=== PATIENT | female | born 1955 | race Caucasian/White ===

== ENCOUNTER → 2020-09-30 07:26 | Outpatient (CLI) | payer MEDICARE, OTHER, SELFPAY ==
--- NOTE | 2020-09-30 07:27 | CA_ITS ---
APPROVED REPORT EXAM: Comprehensive 2D, Doppler, and color-flow Echocardiogram Scoop Driver: Ana Javed RT(R) Ht: 5 ft 1 in Wt: 146lbs BSA: 1.65 BP: 165/80 mmHg Indications: CP, SOB, HTN 2D Dimensions LVOT 1.88 cm (M/F) 1.5-2.5 LVEF (Barkley's) 67.40 % F: 54 - 74 LV Volume 77.70 mL F: 46 - 106 LV Volume Index 47.09 mL/m2 F: 29 - 61 LA Volume 29.50 mL LA Volume Index 17.87 mL/m2 (M/F) 16-34 M-Mode Dimensions RVDd 2.05 cm (0.9-2.6) LA Diam 3.54 cm (1.9-4.0) LVDd 4.36 cm (3.5-5.7) Ao Diam 2.50 cm (2.0-3.7) LVDs 3.19 cm (3.5-5.7) IVSd 0.91 cm (0.6-1.1) PWd 0.87 cm (0.6-1.1) EF (Teich) 52.70% FS 26.80% EDV (Teich) 85.80 mL ESV (Teich) 40.60 mL LV Diastology E Decel Time 200.00 (160-240 msec) E/A Ratio 0.9 MED E' 7.80 (< 7 cm/sec) E'/MED E' Ratio 11.90 (>14) LAT E' 8.40 (<10 cm/sec) E/LAT E' Ratio 11.05 (>14) Mitral Valve MV E Max Bishop. 93.00 (40-130 cm/s) MV A Velocity 107.00 (40-130 cm/s) E/A Ratio 0.86 MV Decel. Time 200.00 (160-240 ms) MV PHT 59.00 ms Tricuspid Valve TR P. Velocity 210.00 cm/s RAP Estimate 10.00 mmHg RVSP 27.70 mmHg Left Ventricle Left atrium is mildly enlarged, left ventricle is normal size, left ventricle wall thickness is upper limit of the normal, there is preserved left ventricular systolic function, visually estimated ejection fraction 55% with no regional wall motion abnormality, diastolic parameters are inconclusive. Right Ventricle Right atrium and right ventricle are normal size and contractility. Aortic Valve Aortic valve is minimally thickened and fibrosed, there is no aortic stenosis or aortic insufficiency. Mitral Valve Mitral valve grossly normal, there is mild mitral regurgitation. Tricuspid Valve Tricuspid valve grossly normal, there is mild tricuspid regurgitation, calculated right ventricular systolic pressure within normal range. Pulmonic Valve Pulmonic valve is poorly visualized. Great Vessels Aortic root is normal size. Inferior vena cava is normal size with normal inspiratory collapse. Pericardium No significant pericardial effusion noted. Conclusion 1. Mildly enlarged left atrium, normal left ventricular size, visually estimated ejection fraction 55% with no regional wall motion abnormality, diastolic parameters are inconclusive. 2. Mild mitral and tricuspid regurgitation, calculated right ventricular systolic pressure within normal range. 3. No significant pericardial effusion noted, inferior vena cava is normal size with normal inspiratory collapse. Electronically signed by : Bryon Guerra MD 09/30/2020 21:07:06
== END ==
PROVIDERS: PCP Physician Assistant Medical; Visit Provider Urology
DX: I10 Essential (primary) hypertension; R07.9 Chest pain, unspecified; E78.49 Other hyperlipidemia
CPT/HCPCS: 93306

== ENCOUNTER → 2021-09-03 08:55 | Outpatient (CLI) | payer MEDICARE, OTHER, SELFPAY ==
[2021-09-03 10:11] LABS: Alanine Aminotransferase 23 U/L (12-78); Albumin Level 4.2 g/dl (3.5-5.0); Alkaline Phosphatase 55 U/L (38-126); Aspartate Amino Transferase 33 U/L (14-36); Bilirubin,Indirect 0.3 mg/dL (0.0-0.9); Bilirubin,Total 0.3 mg/dl (0.2-1.3); Bilirubin,Unconjugated 0.6 mg/dL (0.0-1.1); Chol/HDL Ratio 3.7 (1-3.5); Cholesterol 145 mg/dl (140-200); HDL Cholesterol 39 mg/dl (40-60); Triglycerides 132 mg/dl (30-150); VLDL Cholesterol 26 mg/dL (0-40)
[2021-09-03 10:22] LABS: Direct LDL Cholesterol 71.24 mg/dL (100-129)
== END ==
PROVIDERS: PCP Physician Assistant Medical; Visit Provider Nurse Practitioner
DX: I10 Essential (primary) hypertension; E78.49 Other hyperlipidemia
CPT/HCPCS: 36415; 80061; 80076

== ENCOUNTER 2023-05-12 09:38 | Outpatient (CLI) | payer MEDICARE, OTHER, SELFPAY ==
[2023-05-12 10:26] LABS: Basophils # 0.1 K/mm3 (0-0.2); Basophils % 1.1 % (0.1-2.0); Eosinophils # 0.2 K/mm3 (0.0-0.4); Eosinophils % 3.4 % (0.1-12.0); Hematocrit 38.8 % (37.0-47.0); Hemoglobin 12.9 g/dL (12.2-16.2); Lymphocytes # 2.7 K/mm3 (0.7-4.5); Lymphocytes % 42.1 % (10-50); Mean Corpuscular HGB Conc 33.2 g/dL (31.8-35.4); Mean Corpuscular Hemoglobin 30.3 pg (27.0-31.2); Mean Corpuscular Volume 91.2 fl (81-99); Mean Platelet Volume 9.2 fl (7.4-10.4); Monocytes # 0.4 K/mm3 (0.1-1.0); Monocytes % 5.9 % (1.7-9.3); Neutrophils # 3.1 K/mm3 (1.8-7.8); Neutrophils % 47.5 % (37.0-80.0); Platelet Count 301 K/mm3 (142-424); Red Blood Count 4.25 M/mm3 (4.20-5.40); Red Cell Distribution Width 14.6 % (11.5-17.5); White Blood Count 6.5 K/mm3 (4.8-10.8)
[2023-05-12 13:05] LABS: Free T4 (Free Thyroxine) 1.17 ng/dl (0.78-2.19)
[2023-05-12 13:12] LABS: Chloride 101 mmol/L (98-107)
[2023-05-12 13:13] LABS: Potassium 4.3 mmoL/L (3.5-5.1); Sodium 137 mmol/L (136-145)
[2023-05-12 13:15] LABS: Alanine Aminotransferase 28 U/L (12-78); Alkaline Phosphatase 67 U/L (38-126); Anion Gap 10.3 mEq/L (5-15); Aspartate Amino Transferase 38 U/L (14-36); Bilirubin,Direct 0.2 mg/dl (0.0-0.4); Bilirubin,Indirect 0.3 mg/dL (0.0-0.9); Bilirubin,Total 0.5 mg/dl (0.2-1.3); Bilirubin,Unconjugated 0.3 mg/dL (0.0-1.1); Blood Urea Nitrogen 22 mg/dl (7-17); Carbon Dioxide 30 mmol/L (22.0-30.0); Cholesterol 163 mg/dl (140-200); Estimated Glomerular Filt Rate 49 ml/min (>60); GFR (African American) 60 ML/MIN (>60); Total Protein,Serum 6.9 g/dl (6.3-8.2); Triglycerides 149 mg/dl (30-150); VLDL Cholesterol 30 mg/dL (0-40)
[2023-05-12 13:16] LABS: Calcium 9.7 mg/dl (8.4-10.2); Chol/HDL Ratio 5.6 (1-3.5); Glucose 91 mg/dl (74-100); HDL Cholesterol 29 mg/dl (40-60)
[2023-05-12 13:27] LABS: Direct LDL Cholesterol 78.35 mg/dL (100-129)
== END 2023-05-12 23:59 ==
LOC: LAB 09:39
PROVIDERS: Visit Provider Nurse Practitioner Family
DX: E11.9 Type 2 diabetes mellitus without complications (principal); R06.00 Dyspnea, unspecified; K21.9 Gastro-esophageal reflux disease without esophagitis; R94.31 Abnormal electrocardiogram [ECG] [EKG]; I10 Essential (primary) hypertension; I11.9 Hypertensive heart disease without heart failure; Z79.899 Other long term (current) drug therapy; E78.5 Hyperlipidemia, unspecified
CPT/HCPCS: 36415; 80048; 80061; 80076; 84439; 84443; 85025

== ENCOUNTER 2024-05-10 08:51 | Outpatient (CLI) | payer MEDICARE, SELFPAY ==
[2024-05-10 09:19] LABS: Basophils % 0.6 % (0.1-2.0); Eosinophils # 0.3 K/mm3 (0.0-0.4); Eosinophils % 4.3 % (0.1-12.0); Hematocrit 40.1 % (37.0-47.0); Hemoglobin 13.3 g/dL (12.2-16.2); Lymphocytes # 2.3 K/mm3 (0.7-4.5); Lymphocytes % 34.7 % (10-50); Mean Corpuscular HGB Conc 33.2 g/dL (31.8-35.4); Mean Corpuscular Hemoglobin 29.1 pg (27.0-31.2); Mean Corpuscular Volume 87.7 fl (81-99); Mean Platelet Volume 11.4 fl (7.4-10.4); Monocytes # 0.5 K/mm3 (0.1-1.0); Monocytes % 7.7 % (1.7-9.3); Neutrophils # 3.5 K/mm3 (1.8-7.8); Neutrophils % 52.6 % (37.0-80.0); Platelet Count 232 K/mm3 (142-424); Red Blood Count 4.57 M/mm3 (4.20-5.40); White Blood Count 6.7 K/mm3 (4.8-10.8)
[2024-05-10 09:46] LABS: Albumin Level 4.7 g/dl (3.5-5.0); Chloride 104 mmol/L (98-107)
[2024-05-10 09:47] LABS: Potassium 4.5 mmoL/L (3.5-5.1); Sodium 139 mmol/L (136-145)
[2024-05-10 09:49] LABS: Alanine Aminotransferase 40 U/L (12-78); Alkaline Phosphatase 66 U/L (38-126); Anion Gap 14.5 mEq/L (5-15); Aspartate Amino Transferase 42 U/L (14-36); Bilirubin,Direct 0.1 mg/dl (0.0-0.4); Bilirubin,Indirect 0.4 mg/dL (0.0-0.9); Bilirubin,Total 0.5 mg/dl (0.2-1.3); Bilirubin,Unconjugated 0.4 mg/dL (0.0-1.1); Blood Urea Nitrogen 27 mg/dl (7-17); Calcium 10.3 mg/dl (8.4-10.2); Carbon Dioxide 25 mmol/L (22.0-30.0); Cholesterol 157 mg/dl (140-200); Estimated Glomerular Filt Rate 49 ml/min (>60); GFR (African American) 60 ML/MIN (>60); Glucose 95 mg/dl (74-100); Total Protein,Serum 7.3 g/dl (6.3-8.2); Triglycerides 182 mg/dl (30-150); VLDL Cholesterol 36 mg/dL (0-40)
[2024-05-10 09:50] LABS: HDL Cholesterol 39 mg/dl (40-60)
[2024-05-10 10:00] LABS: Direct LDL Cholesterol 68.55 mg/dL (100-129)
[2024-05-10 10:20] LABS: Thyroid Stimulating Hormone 0.34 uIU/mL (0.465-4.68)
== END 2024-05-10 23:59 | disposition home or self-care (01) ==
LOC: LAB 08:52
PROVIDERS: PCP Physician Assistant Medical; Visit Provider Nurse Practitioner
DX: E78.49 Other hyperlipidemia (principal); R53.83 Other fatigue; I10 Essential (primary) hypertension
CPT/HCPCS: 36415; 80048; 80061; 80076; 84439; 84443; 85025

== ENCOUNTER 2024-05-23 13:03 | Outpatient (CLI) | payer MEDICARE, OTHER, SELFPAY ==
--- NOTE | 2024-05-23 | CA_ITS ---
APPROVED REPORT EXAM: Comprehensive 2D, Doppler, and color-flow Echocardiogram Drill Punch Operator: Ana Javed RT(R) Ht: 5 ft 1 in Wt: 148lbs BSA: 1.66 BP: 157/75 mmHg Indications: CP, HTN, hyperlpidemia 2D Dimensions Left Atrium 2.69 cm F: 2.7 - 3.8 LVEF (Barkley's) 50.80 % F: 54 - 74 LVOT 1.98 cm (M/F) 1.5-2.5 LV Volume 74.00 mL F: 46 - 106 LV Volume Index 44.6 mL/m2 F: 29 - 61 LA Volume 20.30 mL LA Volume Index 12.23 mL/m2 (M/F) 16-34 EF AP4 61.90 % EF AP2 38.9 % EF BP 50.8 % GL Strain -22.0 % M-Mode Dimensions RVDd 2.11 cm (0.9-2.6) LVDd 3.97 cm (3.5-5.7) Ao Diam 2.37 cm (2.0-3.7) LVDs 2.90 cm (3.5-5.7) IVSd 0.75 cm (0.6-1.1) PWd 0.79 cm (0.6-1.1) EF (Teich) 53.20% FS 27.00% EDV (Teich) 68.80 mL ESV (Teich) 32.20 mL LV Diastology E Decel Time 194 (160-240 msec) E/A Ratio 0.7 MED E' 5.6 (>= 7 cm/sec) E'/MED E' Ratio 12.02 (<= 14) LAT E' 6.2 (>= 10 cm/sec) E/LAT E' Ratio 10.85 (<= 14) Mitral Valve MV E Max Bishop. 67.0 (40-130 cm/s) MV A Velocity 93.0 (40-130 cm/s) E/A Ratio 0.73 MV Decel. Time 194 (160-240 ms) Tricuspid Valve TR P. Velocity 216.00 cm/s RAP Estimate 10.00 mmHg RVSP 28.60 mmHg Left Ventricle The left ventricle is normal size. The left ventricular systolic function is normal. The left ventricular ejection fraction is within the normal range. There is increased LV wall thickness. There is normal LV segmental wall motion. Transmitral Doppler flow pattern suggests impaired LV relaxation. LVEF is 55%. Right Ventricle The right ventricle is normal size. The right ventricular systolic function is normal. Atria Left atrium is mildly dilated. Right atrium is mildly dilated. There is no Doppler evidence of interatrial shunt. Aortic Valve The aortic valve is mildly thickened. There is no aortic valvular stenosis. Trace aortic regurgitation. Mitral Valve The mitral valve is normal in structure. No evidence of mitral valve stenosis. Trace mitral regurgitation. Tricuspid Valve Tricuspid valve is grossly normal in structure and function. Trace tricuspid regurgitation. There is insufficent TR jet to estimate RVSP. Pulmonic Valve The pulmonary valve is normal in structure. Trace pulmonic regurgitation. Great Vessels The aortic root is normal in size. IVC is normal in size and collapses >50% with inspiration. Pericardium There is no pericardial effusion. Other Information Study Quality: Fair Conclusion Normal biventricular systolic function. Mild biatrial dilation. No significant valvular stenosis or regurgitation. Electronically signed by : Melida Jackson MD 06/03/2024 16:08:13
== END 2024-05-23 23:59 | disposition home or self-care (01) ==
LOC: RT 13:04
PROVIDERS: PCP Physician Assistant Medical; Visit Provider Nurse Practitioner
DX: I51.7 Cardiomegaly (principal); K30 Functional dyspepsia; R07.89 Other chest pain; R94.31 Abnormal electrocardiogram [ECG] [EKG]
CPT/HCPCS: 93306

== ENCOUNTER 2024-05-24 07:00 | Outpatient (CLI) | payer MEDICARE, OTHER, SELFPAY ==
--- NOTE | 2024-05-24 | CA_ITS ---
APPROVED REPORT Exam: Pharmacologic Technologist: Isabell Bruce Ht: 5 ft 1 in Wt: 148 lbs BSA: 1.66 m2 HR: 69 bpm BP: 149/64 mmHg Stress Test Details Test: Lexiscan HR Resting HR: 69 bpm Max Heart Rate (APMHR): 151.024635 bpm Max HR Achieved: 91 bpm Target HR (85% APMHR): 128.112288 bpm % of APMHR: 60.26 Recovery HR: 83 bpm BP Resting BP: 149.0/64.0 mmHg Max BP: 154.0/58.0 mmHg Recovery BP: 148.0/63.0 mmHg ECG Stress ECG Conclusion Symptoms: None Arrhythmias/Ectopy: None ST-T Changes: Unremarkable with Lexiscan Electronically signed by : Melida Jackson MD 05/24/2024 12:47:22
[2024-05-24] MEDS: SODIUM CHLORIDE 0.9% 10ML SYR (RAD ONLY) 10 ML IV ×2 (07:10→09:30)
--- NOTE | 2024-05-24 07:30 | NM_ITS ---
APPROVED REPORT Exam: Nuclear Stress Test Indication: htn, hyperlipidemia, fm hx, c.p. Patient Location: Outpatient Stress Tech: Isabell Bruce NM Tech:FARZANA Norton RT (R)(N)(M) Ht: 5 ft 1 in Wt: 148 lbs Bra Size: b HR: 69 bpm BP: 149/64 mmHg BSA: 1.66 m2 TID: 1.28 BMI: 27.9 History: htn, hyperlipidemia, fm hx, c.p Procedure: Patient received 0.4 mg of intravenous Lexiscan, resting heart rate 69 bpm, resting blood pressure 149/64 mmHg, with Lexiscan maximum heart rate achieved was 84 bpm which is % of the maximum predicted heart rate and blood pressure was 135/57 mmHg. Patient did complain of chest pain with lexiscan. Cardiac Stress and Resting SPECT Images: Cardiac Stress and Resting SPECT images were obtained using technetium 99m Myoview 10.94 mCi stress and 30.8 mCi at rest. Resting and stress imaging in supine and prone positions demonstrate no evidence of fixed or reversible perfusion defects. There is increase in transient ischemic dilatation ratio (TID 1.28), which may be suggestive of possible multivessel disease or balanced ischemia. Gated imaging demonstrates normal global and regional LV systolic function. LVEF is calculated at > 75%. Conclusion: No evidence of fixed or reversible perfusion defects. There is increase in transient ischemic dilatation ratio (TID 1.28), which may be suggestive of possible multivessel disease or balanced ischemia. Gated imaging demonstrates normal global and regional LV systolic function. LVEF is calculated at > 75%. Electronically signed by : Melida Jackson MD 05/24/2024 12:45:19
[2024-05-24] MEDS: REGADENOSON 0.4MG/5ML SYRINGE 0.4 MG IV (09:30)
[2024-05-24] MEDS: ISOTOPE MYOVIEW (PER STUDY) 1 DOSE IV (10:43)
== END 2024-05-24 23:59 | disposition home or self-care (01) ==
LOC: RAD 07:01
PROVIDERS: PCP Physician Assistant Medical; Visit Provider Nurse Practitioner
DX: I20.9 Angina pectoris, unspecified (principal); R07.89 Other chest pain; I10 Essential (primary) hypertension
CPT/HCPCS: 78452; 93017; 93018; A9502; J2785

== ENCOUNTER 2024-06-16 07:05 | Outpatient (CLI) | payer MEDICARE, OTHER, SELFPAY ==
[2024-06-16 07:12] VITALS: BMI 27.9
[2024-06-16] MEDS: METOPROLOL TARTRATE 50MG TABLET PO (07:36)
[2024-06-16] MEDS: IVABRADINE HCL 7.5MG TABLET PO (07:37)
[2024-06-16 07:38] LABS: Chloride 104 mmol/L (98-107); Potassium 3.8 mmoL/L (3.5-5.1); Sodium 137 mmol/L (136-145)
[2024-06-16 07:40] VITALS: BP 150/87; PULSE 72; RESP 16; O2SAT 99
[2024-06-16 07:41] LABS: Anion Gap 11.8 mEq/L (5-15); Blood Urea Nitrogen 29 mg/dl (7-17); Carbon Dioxide 25 mmol/L (22.0-30.0); Creatinine Clearance Estimated 51 mL/min (50-200); Estimated Glomerular Filt Rate 49 ml/min (>60); GFR (African American) 60 ML/MIN (>60)
[2024-06-16 07:42] LABS: Calcium 9.2 mg/dl (8.4-10.2); Glucose 96 mg/dl (74-100)
[2024-06-16 08:28] VITALS: BP 175/98; PULSE 66; RESP 16; O2SAT 95
[2024-06-16] MEDS: NITROGLYCERIN 0.4MG SL TABLET SL (08:28)
--- NOTE | 2024-06-16 08:30 | CT_ITS ---
APPROVED REPORT Die Machine Operator: CLINICAL INDICATION Chest Pain TECHNIQUE Image Acquisition: A 128 slice MDCT scanner ([employer]book[employer] View) was used for data acquisition. A noncontrast coronary calcium scan was performed. A CT attenuation threshold of 130 Hounsfield units (HU) was used for the detection of calcium in contiguous voxels of 1 sq mm in area to be counted as individual lesions. Bolus tracking in the ascending aorta with a threshold of 180 HU was performed. Immediately afterwards, ECG synchronized cardiac CT was then performed from the cardiac base to apex using retrospective gating with ECG tube current modulation. A total of 85 mL of Isovue 370 mg/mL contrast medium was administered at 5 mL/sec followed by a saline flush using a biphasic injection protocol. A tube voltage of 120 KVp was used. The patient received the following medications prior to the cardiac CT. 50 mg of oral metoprolol 15 mg of oral ivabradine 0.8 mg of sublingual nitroglycerin The average heart rate at the time of acquisition was 61 bpm and regular. Image Reconstruction Transaxial images were reconstructed at 0.67 mm slide thickness. Data was reviewed interactively on an advanced workstation capable of 2 and 3-dimensional displays in all conventional reconstruction formats, including multiplanar reformations, maximum intensity projections, curved multiplanar reformations, and volume rendered reconstructions. When applicable, selected routine images describing the relevant coronary anatomy and pathology were saved and sent to PACS. Complications None Technical Quality Overall image quality was suboptimal and nondiagnostic in the setting of significant motion and blurring artifact. Coronary artery opacification was fair. Total DLP (Dose-Length Product) is 1689.2 mGy-cm. The reported value represents the total of one or more individual components during the CT acquisition of this date and at this time, and as such, the same value may appear in more than one CT report depending on the interpreting/reporting physicians. COMPARISON None FINDINGS CT Coronary Calcium Scoring LMA (Left Main Artery) = 10 LAD (Left Anterior Descending) = 84 LCX (Left Coronary Circumflex) = 59 RCA (Right Coronary Artery) = 92 Total Calcium Score = 245 using the AJ-130 method. The observed calcium score of 245 is at 86th percentile for subjects of the same age, sex, and race/ethnicity. The interpretation of the calcium heart score is based on the following continuum*: 0 = no calcified plaque detected (risk of coronary artery disease is very low ??? less than 5%) 1-10 = calcium detected in extremely minimal levels (risk of coronary diseases is still low ??? less than 10%) 11-100 = mild levels of plaque detected with certainty (mild or minimal narrowing of heart arteries is likely) 101-400 = definite,at least moderate levels of plaque detected (relatively high risk of a heart attack within 3-5 years) >401-999 = extensive levels of plaque detected (high risk of heart attack, high levels of vascular disease are present, high likelihood of at least one significant coronary narrowing) *The calcium heart score quantifies the burden of coronary calcification/plaque in the coronary arteries. The calcium heart score is not able to evaluate the presence or burden of non-calcified (i.e. soft) plaque. There is no mild calcification in the ascending and descending thoracic aorta. Coronary CT Angiography The coronary arterial system is right dominant. Quantitative Stenosis Grading: Left Main (LM): The left main originates normally from the left sinus of Valsalva. The LM bifurcates into the left anterior descending artery and left circumflex artery. There is calcified plaque in the proximal LAD, with no clear evidence of significant luminal stenosis. Left Anterior Descending (LAD) and Diagonal Branches: The LAD gives off 2 diagonal branch(es). The LAD is not well-visualized in the setting of significant motion, but grossly, there is mixed calcified/noncalcified plaque in the proximal LAD with indeterminate degree of luminal stenosis. There is no evidence of LAD-myocardial bridge. Left Circumflex (LCX) and Obtuse Marginals (OM): The LCX gives off 1 Obtuse Marginal (OM) branch(es). The LCx is not well-visualized in the setting of significant motion, grossly there is mixed calcified/noncalcified plaque in the proximal LCx, with indeterminate degree of stenosis. Right Coronary Artery (RCA): The RCA originates normally from the right sinus of Valsalva. The RCA gives off a posterior descending artery (PDA) and posterolateral (PL) branches. The LCx is not well-visualized in the setting of significant motion, grossly there is mixed calcified/noncalcified plaque in the proximal and mid RCA, with indeterminate degree of stenosis. Non-Coronary Cardiac Findings: Analysis of the left ventricular (LV) structure and function was performed after 3-D reconstruction of the LV from axial images, with user-corrected automatic contouring for assessment of LV volumes and user-defined reconstruction from oblique planes for measurement of 3-D cardiac structure and function. -The left ventricle systolic function is indeterminate. Extracardiac Structures No significant extra-cardiac findings. Note, however, that this study is focused on the cardiac findings. IMPRESSION - Image quality was suboptimal and nondiagnostic in the setting of significant motion and blurring artifact. -Presence of coronary calcification with an Agatston score = 245 using the AJ-130 method. -The observed calcium score of 245 is at 86th percentile for subjects of the same age, sex, and race/ethnicity. -Multivessel atherosclerosis is present, with indeterminate evidence of significant flow-limiting atherosclerosis in the setting of technically difficult and nondiagnostic study -CAD-RADS is indeterminate. Further evaluation with alternative modalities is suggested in the setting of nondiagnostic CCTA. *Recommendations: CAD RADS 0: Reassurance. Consider non-atherosclerotic causes of chest pain. CAD RADS 1: Consider non-atherosclerotic causes of chest pain. Consider preventive therapy and risk factor modification. CAD RADS 2: Consider non-atherosclerotic causes of chest pain. Consider preventive therapy and risk factor modification, particularly for patients with nonobstructive plaque in multiple segments. CAD RADS 3: Consider further functional testing. Consider symptom-guided anti-ischemic and preventive pharmacotherapy as well as risk factor modification per published guideline statements. CAD RADS 4A: Consider further functional testing or invasive coronary angiography with revascularization per published guideline statements. Consider symptom-guided anti-ischemic and preventive pharmacotherapy as well as risk factor modification per published guideline statements. CAD RADS 4B: Invasive coronary angiography recommended with revascularization per published guideline statements. Consider symptom-guided anti-ischemic and preventive pharmacotherapy as well as risk factor modification per published guideline statements. CAD RADS 5: Consider invasive angiography and/or viability assessment with revascularization per published guideline statements. Consider symptom-guided anti-ischemic and preventive pharmacotherapy as well as risk factor modification per published guideline statements. CRITICAL RESULT None COMMUNICATION Per this written report The coronary and cardiac findings of this CCTA were reviewed, reported, and signed by Sandeep Jackson MD (Logistics Intern) Conclusion Electronically signed by : Melida Jackson MD 06/20/2024 12:19:48
[2024-06-16 08:31] VITALS: BP 120/69; PULSE 57; RESP 16; O2SAT 96
[2024-06-16 08:40] VITALS: BP 130/72; PULSE 57; RESP 16; O2SAT 96
[2024-06-16] MEDS: IOPAMIDOL-370 (76%);100ML BOTTLE 85 ML IV (08:49)
[2024-06-16] MEDS: 0.9 % SODIUM CHLORIDE 50 ML VIAL IV (08:49)
[2024-06-16 08:50] VITALS: BP 128/72; PULSE 57; RESP 18; O2SAT 96
== END 2024-06-16 09:01 | disposition home or self-care (01) ==
PROVIDERS: PCP Physician Assistant Medical; Visit Provider Nurse Practitioner
DX: R07.89 Other chest pain (principal); E78.49 Other hyperlipidemia; R94.31 Abnormal electrocardiogram [ECG] [EKG]; R53.83 Other fatigue; I20.9 Angina pectoris, unspecified
CPT/HCPCS: 75574; 80048; Q9967

== ENCOUNTER 2024-08-11 08:04 | Day surgery (SDC) | payer MEDICARE, OTHER, SELFPAY ==
[2024-08-11] VITALS (9 sets, daily range): BP systolic 112–148; BP diastolic 64–84; PULSE 65–79; RESP 20–22; O2SAT 90–100; BMI 27.6
--- NOTE | 2024-08-11 07:19 | IR_ITS ---
APPROVED REPORT Patient Location: Outpatient Senior Compensation Consultant: Rex Gonsalves, RT (R) PROCEDURES Left heart catheterization Selective coronary angiogram INDICATION Abnormal CCTA, Angina pectoris Informed consent was obtained prior to the procedure. COMPLICATIONS NONE Estimated Blood Loss: LESS THAN 10 ML TECHNIQUE One percent lidocaine used to anesthetize the right anterior aspect of the wrist. The right radial artery was accessed via the Seldinger technique. A 6 [place] sheath was placed in the right radial artery. 2.5 mg of Verapamil, 800 mcg of nitroglycerin, 1mg Lidocaine and 5000 U Heparin were given through the arterial sheath. The JL3 catheter was also used to perform left heart catheterization and selective coronary angiogram. At the end of the procedure the sheath was removed good hemostasis was achieved using Traclet band, patient was transferred to the postop holding area in stable condition. ANGIOGRAPHIC RESULTS The left main artery Normal The left anterior descending artery Mild 10% luminal regularities proximally and at mid vessel The circumflex artery Mild 10% luminal regularities The right coronary artery Dominant with mild diffuse 10% luminal regularities The FONTAINE ventriculogram reveals Not performed The left ventricular end-diastolic pressure 15 mmHg IMPRESSION Mild luminal irregularities all nonocclusive Borderline LVEDP PLAN 1. Risk factor modification 2. Medical management 3. Evaluation of chronic renal failure Electronically signed by : Antoine Cavazos MD 08/11/2024 12:00:54
[2024-08-11 08:42] LABS: Basophils % 0.4 % (0.1-2.0); Eosinophils # 0.3 Kmm3 (0.0-0.4); Eosinophils % 3.9 % (0.1-12.0); Hematocrit 36.1 % (37.0-47.0); Immature Granulocytes # 0.01 10^3uL; Immature Granulocytes % 0.1 %; Lymphocytes # 2.6 K/mm3 (0.7-4.5); Lymphocytes % 33.8 % (10-50); Mean Corpuscular HGB Conc 33.2 g/dL (31.8-35.4); Mean Corpuscular Hemoglobin 29.7 pg (27.0-31.2); Mean Corpuscular Volume 89.4 fl (81-99); Mean Platelet Volume 10.5 fl (7.4-10.4); Monocytes # 0.5 K/mm3 (0.1-1.0); Monocytes % 6.2 % (1.7-9.3); Neutrophils # 4.2 K/mm3 (1.8-7.8); Neutrophils % 55.6 % (37.0-80.0); Nucleated Red Blood Cells # 0 10^3/uL; Nucleated Red Blood Cells % 0 %; Platelet Count 294 K/mm3 (142-424); Red Blood Count 4.04 M/mm3 (4.20-5.40); Red Cell Distribution Width 13.5 % (11.5-17.5); Red Cell Distribution Width-SD 44.4 fL; White Blood Count 7.6 K/mm3 (4.8-10.8)
[2024-08-11 08:47] LABS: Chloride 100 mmol/L (98-107); Potassium 4.4 mmoL/L (3.5-5.1); Sodium 138 mmol/L (136-145)
[2024-08-11 08:50] LABS: Anion Gap 10.4 mEq/L (5-15); Blood Urea Nitrogen 32 mg/dl (7-17); Carbon Dioxide 32 mmol/L (22.0-30.0); Creatinine Clearance Estimated 34 mL/min (50-200); Estimated Glomerular Filt Rate 32 ml/min (>60); GFR (African American) 39 ML/MIN (>60)
[2024-08-11 08:51] LABS: Calcium 9.9 mg/dl (8.4-10.2); Glucose 96 mg/dl (74-100)
[2024-08-11] MEDS: LIDOCAINE 1% 10ML MDV 10 ML IJ (09:30)
[2024-08-11] MEDS: diphenhydrAMINE 50MG/ML VIAL 50 MG IV (09:30)
[2024-08-11] MEDS: HEPARIN 1,000 UNITS/500ML NS (CATH LAB) 3000 UNIT IV (09:30)
[2024-08-11] MEDS: HEPARIN 1,000 UNITS/ML 10ML VIAL (CATH LAB) 5000 UNIT IV (09:31)
[2024-08-11] MEDS: 0.9 % SODIUM CHLORIDE 500 ML 25 ML IV (09:31)
[2024-08-11] MEDS: VERAPAMIL 2.5MG/ML 2ML VIAL 2.5 MG IV (09:31)
[2024-08-11] MEDS: NITROGLYCERIN 800MCG/8ML SYR (CATH LAB) 800 MCG IA (09:32)
[2024-08-11] MEDS: FENTANYL 100MCG/2ML VIAL 50 MCG IV (09:49)
[2024-08-11] MEDS: MIDAZOLAM HCL 1MG/ML 5ML VIAL 1 MG IV (09:49)
[2024-08-11] MEDS: IOPAMIDOL-370 (76%);100ML BOTTLE 50 ML IV (13:41)
== END 2024-08-11 12:13 | disposition home or self-care (01) ==
PROVIDERS: PCP Physician Assistant Medical; Visit Provider Internal Medicine
PROC: 4A023N7 Measurement of Cardiac Sampling and Pressure, Left Heart, Percutaneous Approach (ICD-10-PCS; CPT 93452; principal; 2024-08-11 08:15)
DX: I25.119 Atherosclerotic heart disease of native coronary artery with unspecified angina pectoris (principal); R93.1 Abnormal findings on diagnostic imaging of heart and coronary circulation; R94.39 Abnormal result of other cardiovascular function study; I10 Essential (primary) hypertension; E78.49 Other hyperlipidemia; Z79.899 Other long term (current) drug therapy; Z88.5 Allergy status to narcotic agent; Z88.0 Allergy status to penicillin; Z88.2 Allergy status to sulfonamides; Z88.8 Allergy status to other drugs, medicaments and biological substances
CPT/HCPCS: 93458; 80048; 85025; 99152; C1725; C1769; J1200; J1644; J2003; J3010; J7040; Q9967

== ENCOUNTER 2024-08-21 11:39 | Outpatient (CLI) | payer MEDICARE, OTHER, SELFPAY ==
--- OUTSIDE RECORDS SUMMARY | 2024-07-12 11:20 | XMS_ITS | Encounter Summary ---
Author Organization Healthcare Address [address] [place] [address] Care Team Providers Care Storekeeper Helper Name Role Phone María Elena Masters RN REHABILITATION Unavailable [phone] Kiley Morel Primary Care Provider Reason for Visit * Reason Comments Follow-up Encounter Details Date Type Department Care Team (Late st Contact Info) Description 07/12/2024 11:20 AM EDT [facility] Visit [facility] [address], [address] [place] [id number] Erasmo Vasquez MD [facility] [address] [address] Hiatal hernia with GERD (Primary Dx) Social History Tobacco Use Types Packs/Day Years Used Date Smoking Tobacco: Never Smokeless Tobacco: Never Alcohol Use Standard Drinks/Week Comments No 0 (1 standard drink = 0.6 oz pur e alcohol) PHQ-2 Answer Date Recorded Patient Health Questionnaire-2 Score 0 05/29/2024 PHQ-9 Answer Date Recorded Patient Health Questionnaire-9 Score 0 05/29/2024 PHQ-2A Answer Date Recorded Patient Health Questionnaire-2 Score 0 11/09/2022 Comments No Sex and Gender Information Value Date Recorded Sex Assigned at Not on file Legal Sex Female 7:08 PM EDT Gender Identity Not on file Sexual Orientation Not on file documented as of this encounter Last Filed Vital Signs Vital Sign Reading Time Taken Comments Blood Pressure 110/72 07/12/2024 10:36 AM EDT Pulse 72 07/12/2024 10:36 AM EDT Temperature 36.4 C (97.6 F) 07/12/2024 10:36 AM EDT Respiratory Rate 16 07/12/2024 10:36 AM EDT Oxygen Saturation 100% 07/12/2024 10:36 AM EDT Inhaled Oxygen Concentration - - Weight 66.3 kg (146 lb 3.2 oz) 07/12/2024 10:36 AM EDT Height 162.6 cm (5' 4 ) 07/12/2024 10:36 AM EDT Body Mass Index 25.1 07/12/2024 10:36 AM EDT documented in this encounter Miscellaneous Notes * Progress Notes - Adelina Copeland MD - 07/12/2024 11:20 AM EDT Subjective Reason for Visit: Chief Complaint Patient presents with Follow-up Annabella Elias is a 68 y.o. female presenting for follow-up regarding history of primary achalasia, hiatal hernia s/p Heller myotomy/Toupet fundoplication 03/[address] Vasquez. She presents with results from pH probe testing and upper GI. Past Surgical History: Prior Surgical History for Hiatal Hernia or Reflux: yes Year of Previous Surgery - 2016 and Previous Surgeon - Christina Currently experiencing chest pain, epigastric pain, and bloating. Denies heartburn, regurgitation, liquid dysphagia, and solid dysphagia. She finds her belching and diarrhea/constipation the most troublesome. Testing Manometry: 03/24/2024 LES relaxation pressure is elevated only when upright, normal when supine. 90%of the swallows are premature (spastic). Findings meet manometric criteria of distal esophageal spasm (vs treated type 3 achalasia). The borderline/elevated LES pressure is likely related to the reported fundoplication. Gastric Emptyin04/18/2024 Normal gastric emptying of specified complete egg solid meal. Upper Endoscopy: 01/05/2024 The Z-line was irregular and was found at the gastroesophageal junction. Biopsies were taken with a cold forceps for histology. no masses or nodules in the distal esophagus. LA Grade A (one or more mucosal breaks less than 5 mm, not extending between tops of 2 mucosal folds) esophagitis with no bleeding was found at the gastroesophageal junction. A 3 cm hiatal hernia was present. 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 I personally reviewed above imaging, interpreting type III paraesophageal hernia with acid reflux. Outside medical records reviewed and commented on above. Body mass index is 25.1 kg/m??. Non-smoker Medical History[1] Surgical History[2] Family History[3] Current Medications[4] Allergies[5] Review of Systems 14pt ROS completed and negative unless otherwise stated in HPI. 05/01/2024 8:58 AM GERD Questionnaire Patient Status: New patient Have you had surgery in the past for hiatal hernia or reflux? Y Year 2015 Hospital/City of previous surgery: Surgeon: Christina Heartburn Y Severity 2 Regurgitation N Trouble swallowing solid foods N Trouble swallowing liquids N Painful swallowing N Nausea Y Severity 3 Vomiting Y Severity 2 Bloating Y Severity 3 Epigastric/abdominal pain Y Severity 7 Hoarseness N Chronic Cough N Diarrhea Y Severity 3 Constipation Y Severity 1 Are you currently taking any antacid medications (proton pump inhibitors, H2 blockers, agjg-nwx-vmeplus preparations)? Y Med 1. Nexium Med 1 - Frequency of use Daily Med 2. TUMS Med 2 - Frequency of use Twice/day Please select the type of diet you are currently eating or write in if none of the types of diets listed apply to you: Regular diet with no restrictions Do you drink carbonated beverages (Coke, Sprite, etc.)? N How often do you usually have a bowel movement? Every other day What is the usual consistency of your bowel movement? sometimes diarrhea/sometimes formed stool Do you use medications or other products to maintain bowel function, such as stool softeners, laxatives, suppositories? Y Objective Visit Vitals BP 110/72 (BP Location: Right arm, Patient Position: Sitting) Pulse 72 Temp 36.4 ??C (97.6 ??F) (Temporal) Ht 1.626 m (5' 4 ) Wt 66.3 kg (146 lb 3.2 oz) SpO2 100% BMI 25.10 kg/m?? Physical Exam Constitutional: well developed, well nourished, and in no acute distress Eyes: EOMI Ears, Nose, Throat: normal atraumatic, no neck masses Respiratory: Normal Effort, Normal Rate Cardiac: Regular rate Abdomen: Soft, non-tender; no organomegaly or masses. Genitourinary: not indicated Musculoskeletal: normal strength, tone, and muscle mass, no deformities Psychiatric: oriented to time, place and person, mood and affect are within normal limits Neurologic: motor intact and no focal deficits Skin: [place], warm, well perfused Assessment/Plan Problem List Items Addressed This Visit None Visit Diagnoses Hiatal hernia with GERD - Primary Patient is a 68 y.o. female presenting with follow-up regarding history of primary achalasia, hiatal hernia s/p Heller myotomy/Toupet fundoplication 03/[address] Vasquez. She reports belching, coughing, epigastric/chest pain, and diarrhea/constipation. Manometry and UGI personally reviewed showing evidence of Type III paraesophageal and pathologic acid reflux (Demeester score 59) with good symptom correlation (cough). We reviewed medical vs surgical management of recurrent hiatal/paraesophagealhernia repair. Discussed that paraesophageal hernia repair is unlikely to relieve bowel symptoms and belching. Repair would improve acid reflux, but patient is relatively asymptomatic from the reflux outside of occasional coughing episodes. In addition, given her history of achalasia and original symptoms of dysphagia/regurgitation, a repair risks introducing the return of these symptoms which would be significantly more bothersome to the patient. Patient would like to continue medical management of GERD with BID PPI and tums as needed. She will plan to return to clinic is acid reflux symptoms worsen. She will plan to also continues discussion of lower GI symptoms with her visitor services representative (Cristela Castillo). Adelina Copeland MD General Surgery PGY1 Pager [phone] [1] Past Medical History: Diagnosis Date Cataract GERD (gastroesophageal reflux disease) Glaucoma Hyperlipidemia Hypertension Osteoporosis [2] Past Surgical History: Procedure Laterality Date ADENOIDECTOMY N/A Adenoidectomy from [facility] CATARACT EXTRACTION Left COLONOSCOPY ENDOSCOPY MYOTOMY N/A Heller Myotomy Laparoscopic Approach from [facility] TONSILLECTOMY N/A Tonsillectomy from [facility] [3] Family History Problem Relation Name Age of Onset Diabetes Mother [4] Current Outpatient Medications Medication Sig Dispense Refill acetaminophen (Tylenol) 325 MG capsule Allergy Relief Cetirizine 10 MG tablet ALPRAZolam (Xanax) 0.5 MG tablet amitriptyline (Elavil) 50 MG tablet Take 1 tablet by mouth nightly. ifwqxmm-mrqydyorxvgcg-kzckopqf (Excedrin Migraine) 250-250-65 MG tablet azelastine (Astelin) 0.1 % nasal spray brimonidine-timolol (Combigan) 0.2-0.5 % ophthalmic solution Administer 1 drop into both eyes 2 (two) times a day. calcium carbonate-vitamin D 600-200 MG-UNIT tablet carbamide peroxide (Debrox) 6.5 % otic solution cholecalciferol (Vitamin D-3) 50 MCG (2000 UT) tablet clotrimazole (Lotrimin) 1 % cream diclofenac (Voltaren) 1 % topical gel dicyclomine (Bentyl) 10 MG capsule Take 1 capsule by mouth in the morning and 1 capsule at noon and1 capsule in the evening. Take before meals. 270 capsule 3 docusate sodium (Colace) 100 MG capsule Take 1 capsule (100 mg) by mouth 2 (two) times a day if needed for constipation. 180 capsule 0 esomeprazole (NexIUM) [address] capsule Take 1 capsule (40 mg) by mouth 2 (two) times a day. Do not open capsule. 60 capsule 11 Susan 500 MG capsule Take 500 mg by mouth every 8 (eight) hours if needed (nausea). 60 capsule 5 ipratropium (Atrovent) 0.03 % nasal spray ipratropium (Atrovent) 0.06 % nasal spray ketotifen (Zaditor) 0.025 % ophthalmic solution latanoprost (Xalatan) 0.005 % ophthalmic solution loratadine (Claritin) 10 MG tablet losartan-hydroCHLOROthiazide (Hyzaar) 100-25 MG tablet Take 1 tablet by mouth every morning. mometasone (Nasonex) 50 MCG/ACT nasal spray montelukast (Singulair) 10 MG tablet Take 1 tablet by mouth every evening. Multiple Vitamin (Daily Vites) tablet Take 1 tablet by mouth 1 (one) time each day. Myrbetriq 25 MG tablet Nurtec 75 MG tablet dispersible olopatadine (Pataday) 0.2 % ophthalmic solution Administer 1 drop into affected eye(s) 1 (one) timeeach day. ondansetron (Zofran) 4 MG tablet Take 1 tablet by mouth every 8 hours as needed for nausea or vomiting. 20 tablet 0 pantoprazole (Protonix) 40 MG EC tablet TAKE ONE TABLET BY MOUTH TWICE DAILY BEFORE MEALS -DO NOT CRUSH, CHEW OR SPIT Phytonadione (MEPHYTON PO) polyethylene glycol (MiraLax) 17 GM/SCOOP powder Take 17 g by mouth daily as needed (constipation).Take 1 dose daily, hold on days have loose stool. 510 g 11 pravastatin (Pravachol) 80 MG tablet timolol (Timoptic) 0.5 % ophthalmic solution travoprost (Travatan Z) 0.004 % solution ophthalmic solution triamcinolone (Kenalog) 0.1 % cream ubrogepant (Ubrelvy) 100 MG tablet Vitamin A 3 MG (43991 UT) capsule Take by mouth. Wheat Dextrin (Benefiber) powder Mix in 8 oz liquid, start with 1 tsp daily, increase by 1 tsp q 3 days until taking 3 tsp BID 529 g 11 zoledronic acid (Reclast) 5 MG/100ML solution Infuse 100 mL into a venous catheter 1 (one) time. annually hydroCHLOROthiazide (HYDRODiuril) 25 MG tablet Take 1 tablet by mouth 1 (one) time each day. (Patient not taking: Reported on 07/12/2024) losartan (Cozaar) 100 MG tablet Take 1 tablet (100 mg) by mouth 1 (one) time each day. (Patient nottaking: Reported on 07/12/2024) QIF-GHi-KySf-NaSulf-Na Asc-C (MoviPrep) 100 g reconstituted solution Take has directed for colonoscopy (Patient not taking: Reported on 07/12/2024) 1 each 0 rifAXIMin (Xifaxan) 550 MG tablet TAKE ONE TABLET BY MOUTH THREE TIMES DAILY FOR FOURTEEN DAYS (Patient not taking: Reported on 07/12/2024) rosuvastatin (Crestor) 10 MG tablet (Patient not taking: Reported on 07/12/2024) No current facility-administered medications for this visit. [5] Allergies Allergen Reactions Escitalopram Anaphylaxis and Unknown - Patient states they do not know rxn details Paroxetine Anaphylaxis and Unknown - Patient states they do not know rxn details Penicillins Rash, Swelling and Unknown - Patient states they do not know rxn details Sertraline Other - please document in the comment field and Anaphylaxis Sulfa Drugs Nausea, Other - please document in the comment field, Unknown - Patient states they do not know rxn details and Swelling Cefdinir Itching Codeine Nausea And Vomiting Dexamethasone Other - please document in the comment field Lisinopril Cough Methylprednisolone Other - please document in the comment field Paroxetine Hcl Other - please document in the comment field Simvastatin Other - please document in the comment field Muscle cramps Cosigned by Erasmo Vasquez MD at 07/18/2024 10:24 PM EDT Associated attestation - Erasmo Vasquez MD - 07/18/2024 10:24 PM EDT I saw and evaluated the patient with the resident/fellow. I discussed the case with the resident/fellow and agree with the findings and plan as documented. documented in this encounter Plan of Treatment Upcoming Encounters Date Type Department Care Team (Late st Contact Info) Description 10/02/2024 8:40 AM EDT Office Visit [facility] Medicine Specialties [address], [address] [place] [address] Cristela Castillo, ELIOT [address] [place] [address] 03/23/2025 10:30 AM EST Ovarian Cancer Screening [facility] [address], [address] [place] [address] documented as of this encounter Visit Diagnoses Diagnosis Hiatal hernia with GERD- Primary documented in this encounter Additional Health Concerns Assessment Noted Time PHQ-9 Depression Total Score: 0 05/30/19 25 7:12 AM EDT A fall risk assessment has been complete d for the patient 07/12/2024 10:36 AM EDT A Body Mass Index follow-up plan has been documented for the patient 07/18/2024 10:24 PM EDT documented as of this encounter Care Teams Storekeeper Helper Relationship Specialty Start Date End Date María Elena Masters, RN REHABILITATION [address] [place] [address] PCP - trolley wire installer 04/21/21 Kiley Morel PA [address] [place] [address] PCP - General 04/21/21 documented as of this encounter
--- OUTSIDE RECORDS SUMMARY | 2024-07-13 09:09 | XMS_ITS | Encounter Summary ---
Author Organization [facility] Address [address] [place] [address] Care Team Providers Care Spring Floor Service Worker Name Role Phone Kiley Morel PA-C Primary Care Provider [phone] Reason for Referral * Radiology Services (Routine) - Pending Review Specialty Diagnoses / Procedures Referred By Black cannon Referred To Contact Diagnoses Visit for screening mammogram Procedures Mammo Screening (3D) Bilateral Anna Garcia NP [address] [place] [address] [place] [address] Phone: tel: fax: Referral ID Status Reason Start Date Expiration Date V isits Requested Visits Authorized [id number] Pending Review 07/07/2024 07/07/2025 1 1 Reason for Visit * Radiology Services (Routine) - Pending Review Specialty Diagnoses / Procedures Referred By Black cannon Referred To Contact Diagnoses Visit for screening mammogram Procedures Mammo Screening (3D) Bilateral Anna Garcia NP [address] [place] [address] Phone: tel: fax: Referral ID Status Reason Start Date Expiration Date V isits Requested Visits Authorized [id number] Pending Review 07/07/2024 07/07/2025 1 1 Encounter Details Date Type Department Care Team (Latest Contact Info) Description 07/13/2024 9:09 AM EDT - 07/13/2024 11:59 PM EDT Hospital Encounter Mobile Mammography [address] [place] [id number] Anna Garcia, CISO [address] [place] [address] [place] [address] Visit for screening mammogram Discharge Disposition: Home or Self Care Social History Tobacco Use Types Packs/Day Years Used Date Smoking Tobacco: Never Smokeless Tobacco: Never Alcohol Use Standard Drinks/Week Comments Never 0 (1 standard drink = 0.6 oz pur e alcohol) Comments No Sex and Gender Information Value Date Recorded Sex Assigned at Not on file Legal Sex Female 2:38 PM EST Gender Identity Not on file Sexual Orientation Not on file documented as of this encounter Medications at Time of Discharge rimegepant (NURTEC ODT) 75 mg TbDL Take 1 Tablet by mouth As directed. dicyclomine (BENTYL) 10 mg capsule Take 10 mg by mouth Four times a day. amitriptyline (ELAVIL) 50 mg tablet Take 50 mg by mouth At bedtime. triamcinolone (KENALOG) 0.1 % cream by Topical route Twice a day. losartan-hydroch lorothiazide (HYZAAR) 100-25 mg tablet Take 1 Tablet by mouth Once Daily. azelastine (ASTELIN) 137 mcg nasal spray 1-2 Sprays by INTRANASAL route Twice a day. latanoprost (XALATAN) 0.005 % Instill 1 Drop in both eyes At bedtime. alendronate (FOSAMAX) 70 mg tablet Take 70 mg by mouth Every Week. montelukast (SINGULAIR) 10 mg tablet Take 10 mg by mouth Every evening. cetirizine (ZYRTEC) 10 mg tablet Take 10 mg by mouth Once Daily. loratadine (CLARITIN) 10 mg tablet Take 10 mg by mouth Once Daily. ALPRAZolam (XANAX) 0.25 mg tablet Take 0.25 mg by mouth Three times a day. ascorbic acid, vitamin C, 500 mg tablet Take 500 mg by mouth Once Daily. cyanocobalamin 1,000 mcg tablet Take 1,000 mcg by mouth Once Daily. multivitamin with folic acid (THERA) tablet Take 1 Tablet by mouth Once Daily. cholecalciferol (VITAMIN D3) 400 unit Cap CAPSULE Take 400 Units by mouth Once Daily. ubrogepant (UBRELVY) 100 mg tablet Take 100 mg by mouth As directed. pravastatin (PRAVACHOL) 80 mg tablet Take 80 mg by mouth At bedtime. documented as of this encounter Plan of Treatment Not on file documented as of this encounter Procedures Procedure Name Priority Date/Time Associated Diagnosis Comments MAMMO SCREENING (3D) BILATERAL Routine 07/13/2024 9:16 AM EDT Visit for screening mammogram documented in this encounter Results * Mammo Screening (3D) Bilateral (07/13/2024 9:16 AM EDT) Anatomical Region Laterality Modality breast Bilateral Mammography 07/13/2024 Narrative 07/14/2024 5:59 [place] [address] Radiology PATIENT NAME: Annabella Elias MR#: [id number] PROCEDURE DATE: 07/13/2024 ROOM#: ORDERING PHYS: [facility] [place]AM: MAMMO SCREENING (3D) BILATERAL HISTORY: Screening. No family or personal history of breast cancer COMPARISON: 06/17/2023 and 06/04/2022 TECHNIQUE: C-view and CC and MLO tomosynthesis views were obtained. CAD (Computer-Aided Diagnosis) was incorporated in evaluation of this examination. DENSITY: Breast Density:B: There are scattered areas of fibroglandular density. FINDINGS: Fluctuating background parenchymal nodularity (predominately decreased in size) highly suggestive of background fibrocystic changes. Vascular and additional scattered calcifications are redemonstrated. No dominant mass or suspicious calcifications. No suspicious skin or nipple changes. No significant change from prior exams. IMPRESSION: No mammographic evidence of malignancy. BI-RADS: 2: Benign RECOMMENDATION: Recommendation:The [employer] recommends annual screening mammography at age 40 for average risk women. Consult with your provider regarding the best screening regimen for you.Annual Screening mammography assuming a stable clinical breast examination. Per national [place] guidelines, a breast imaging result letter will be provided to your patient. A negative mammogram should not prevent biopsy of any suspicious nodule or palpable abnormality which should be closely monitored and managed on clinical grounds. Patient information entered into a reminder system with a target due date for the next mammogram. Eight to ten percent of breast cancers are not detected by mammography. Annual breast exams by your physician and monthly self-examinations are strongly recommended. This combined with mammography will increase the likelihood for early detection of breast cancer. Location of Performed Examination Mobile Mammography [address] [address] THIS IS AN ELECTRONICALLY VERIFIED REPORT 07/14/2024 5:59 AM: MD Terry Callahan MD ran TD: 07/14/2024 JOB #: [id number] Radiology Page 1 of 1 COPY Anna Garcia NP IMG MAMMOGRAPHY ORDERABLES Fi nal Result documented in this encounter Visit Diagnoses Diagnosis Visit for screening mammogram documented in this encounter Care Teams Spring Floor Service Worker Relationship Specialty Start Date End Date Kiley Morel PA-C [address] [place] [address] PCP - General Physician Vice Provost 02/03/20 documented as of this encounter
--- OUTSIDE RECORDS SUMMARY | 2024-08-21 11:43 | XMS_ITS | Encounter Summary ---
Author Organization Healthcare Address [address] [place] [address] Care Team Providers Care Program Arranger Name Role Phone María Elena Masters ACCOUNTANT SUPERVISOR Unavailable [phone] Kiley Morel Primary Care Provider [phone] Encounter Details Date Type Department Care Team (Latest Contact Info) Description 07/12/2024 Travel Social History Tobacco Use Types Packs/Day Years [...] on file documented as of this encounter Plan of Treatment Upcoming Encounters Date Type Department Care Team (Late st Contact Info) Description 10/02/2024 8:40 AM EDT Office Visit [facility] Special[facility] [address], [address] [place] [phone] Cristela Castillo PA [address] [place] [address] 03/23/2025 10:30 AM EST Ovarian Cancer Screening [facility] [address] [place] [address] documented as of this encounter Visit Diagnoses Not on filedocumented in this encounter Additional Health Concerns Assessment Noted Time PHQ-9 Depression Total Score: 0 05/30/19 25 7:12 AM EDT A fall risk assessment has been complete d for the patient 07/12/2024 10:36 AM EDT A Body Mass Index follow-up plan has been documented for the patient 07/18/2024 10:24 PM EDT documented as of this encounter Care Teams Program Arranger Relationship Specialty Start Date End Date María Elena Masters, ACCOUNTANT SUPERVISOR [address] [place] [address] PCP - senior linux unix engineer 04/21/21 Kiley Morel PA [address] [place] [address] PCP - General 04/21/21 documented as of this encounter
--- OUTSIDE RECORDS SUMMARY | 2024-08-21 11:43 | XMS_ITS | Data Portability ---
Author Organization [facility] Address [address] [place] [address] Care Team Providers Care Public Health Internship Name Role Phone ROSIO DEY Supervisor Travel Trailer [phone] KILEY MOREL Primary Care Provider DIANNA PADGETT Primary Care Provider JOHN CLEVELAND Referring Provider AVERY GHOTRA Referring Provider [phone] Assessment Encounter Date Assessment Date Assessment LastModified by Organization Details LastModified Time 05/31/2024 05/31/2024 Patient presente d to office today for their Medicare Annual Wellness Visit. Education was provided on healthy nutrition, including a diet rich in fruits and vegetables, minimizing simple carbohydrates, salt, and saturated fats. Encouraged regular cardiovascular exercise such as walking at least 30 minutes daily, 5 times per week. Emphasized preventive health measures and educated pt on fall prevention and community-based lifestyle interventions to help reduce health risks and promote healthy living. Medicare Preventive Services Check List reviewed and printed for patient. [email or web address] Not available 05/30/2024 11:51:32 Plan of Treatment Reminders Order Date Submit Date Provider Last Modified By Organization Details Last Modified Time Details Appointments None recorded. Lab vitamin D, 25-hydroxy, total, serum 2024 025 DAVID [facility], [address], [place], [address], 09:06:58 lipid panel, serum 2024 025 DAVID [facility], [address], [address], [place], [address], 5 09:06:57 CMP, serum or plasma 2024 025 DAVID [facility], [address], [address], [place], [address], 5 09:06:56 unlisted lab - toxassure flex 23, [id number] 2024 025 DAVID [facility], [address], [address], [place], [address], 5 11:24:42 lipid panel, serum 2023 024 DAVID [facility], [address], [address], [place], [address], 4 04:11:24 CMP, serum or plasma 2023 024 DAVID [facility], [address], [address], [place], [address], 4 04:11:23 Referral None recorded. Procedures None recorded. Surgeries None recorded. Imaging MAMMO, screening, bilateral 2023 025 [facility], [address] [place], [address], 5 08:32:23 Medication Orders Reclast 5 mg/100 mL intravenous piggyback 2024 025 Not available 21:08:21 Zithromax Z-Guy 250 mg tablet 2024 025 [facility], [address] [place] [address], [id number], 5 11:41:40 Robitussin Cough-Chest Congestion DM 5 mg-100 mg/5 mL oral liquid 2024 025 [facility], [address] [place] [address], [id number], 5 11:41:40 alprazolam 0.5 mg tablet 2024 025 [facility], [address] [place] [address], [id number], 5 11:21:43 losartan 100 mg-hydrochl orothiazide 25 mg tablet 2023 024 [facility], [address] [place] [address], [id number], 4 09:13:18 pravastatin 80 mg tablet 2023 [facility], [address] [place] [address], [id number], 09:13:18 Patient TargetsNo targets recorded. Patient Instructions Encounter Date Encounter Id Patient Instructions Last Modified By Organization Details Last Modified Time 12/01/2023 [id number] cont seeing specialists as scheduled acanary Not available 12/01/2023 08:38:48 01/03/2024 [id number] body mass index: care instructions Not available 01/03/2024 09:18:21 learning about healthy weight Not available 01/03/2024 09:18:21 fall prevention education Not available 01/03/2024 09:08:18 1. She was advised regarding adequate calcium/vitamin D intake to include 1200 mg calcium with 1000 IU vitamin D daily from all sources preferably dietary. 2. Encourage regular weight bearing exercise. 3. DEXA scan is current.. Continue Reclast. 4. Colon cancer screening is scheduled. 5. Mammogram screening is current. Not available 01/04/2024 06:19:47 05/30/2024 [id number] bronchitis: care instructions Not available 05/30/2024 11:32:51 Declan report obtained, reviewed, and made part of patient's medical record. After reviewing the history, physical exam and treatment options, prescribing a controlled substance is considered medically appropriate for treatment for anxiety control and improvement of function. The risks of tolerance and drug dependence were specifically discussed with the patient. The patient denies receiving ongoing anxiety management from any other provider for this condition. All questions were answered. Engage in Hobbies and Interests: Make time for activities that you find relaxing and enjoyable. Not available 05/30/2024 22:53:48 05/31/2024 [id number] advance directives: care instructions acanary Not available 05/31/2024 08:34:08 learning about depression acanary Not available 05/31/2024 08:34:08 preventing falls : care instructions acanary Not available 05/31/2024 08:34:08 keep f/u appts with GI and other specialists as scheduled acanary Not available 05/31/2024 08:45:38 06/19/2024 [id number] [employer] Medication handout given. [email or web address] Not available 06/19/2024 09:45:02 Reason for Referral None Reported. Results Created Date Observation Date Name Description Value Unit Range Abnormal Flag Note LastModifiedBy Organization Detail LastModifiedTime 12/01/19 24 12/02/2023 COMP. METAB OLIC PANEL (14) glucose 84 mg/dL 70-99 normal Not Available [facility] ([facility]) [address] [place], [address], 12/02/2023 04:11:23 12/01/19 24 12/02/2023 COMP. METAB OLIC PANEL (14) BUN 19 mg/dL 8-27 normal Not Available [facility] ([facility]) [address] [place], [address], 12/02/2023 04:11:23 12/01/19 24 12/02/2023 COMP. METAB OLIC PANEL (14) creatinine 1.08 mg/dL 0.57-1 .00 above high normal Not Available [facility] ([facility]) [address] [place], [address], 12/02/2023 04:11:23 12/01/19 24 12/02/2023 COMP. METAB OLIC PANEL (14) eGFR 56 mL/mi n/1.7 3 >59 below low normal Not Available [facility] ([facility]) [address] [facility] [place], [address], 12/02/2023 04:11:23 12/01/19 24 12/02/2023 COMP. METAB OLIC PANEL (14) BUN/creatini ne ratio 18 12-28 normal Not Available [facility] ([facility]) [address] [facility] [place], [address], 12/02/2023 04:11:23 12/01/19 24 12/02/2023 COMP. METAB OLIC PANEL (14) sodium 138 mmol/ L 134-14 4 normal Not Available [facility] ([facility]) [address] [facility] [place], [address], 12/02/2023 04:11:23 12/01/19 24 12/02/2023 COMP. METAB OLIC PANEL (14) potassium 3.8 mmol/ L 3.5-5. 2 normal Not Available [facility] ([facility]) [address] [facility] [place], [address], 12/02/2023 04:11:23 12/01/19 24 12/02/2023 COMP. METAB OLIC PANEL (14) chloride 98 mmol/ L 96-106 normal Not Available [facility] ([facility]) [address] [facility] [place], [address], 12/02/2023 04:11:23 12/01/19 24 12/02/2023 COMP. METAB OLIC PANEL (14) carbon dioxide, total 24 mmol/ L 20-29 normal Not Available [facility] ([facility]) [address] [facility] [place], [address], 12/02/2023 04:11:23 12/01/19 24 12/02/2023 COMP. METAB OLIC PANEL (14) calcium 9.4 mg/dL 8.7-10 .3 normal Not Available [facility] ([facility]) [address] [facility], [place], [address], 12/02/2023 04:11:23 12/01/19 24 12/02/2023 COMP. METAB OLIC PANEL (14) protein, total 7.0 g/dL 6.0-8. 5 normal Not Available [facility] ([facility]) [address] [facility] [place], [address], 12/02/2023 04:11:23 12/01/19 24 12/02/2023 COMP. METAB OLIC PANEL (14) albumin 4.3 g/dL 3.9-4. 9 normal Not Available [facility] ([facility]) [address] [facility] [place], [address], 12/02/2023 04:11:23 12/01/19 24 12/02/2023 COMP. METAB OLIC PANEL (14) globulin, total 2.7 g/dL 1.5-4. 5 Not Available [facility] ([facility]) [address] [facility], [place], [address], 12/02/2023 04:11:23 12/01/19 24 12/02/2023 COMP. METAB OLIC PANEL (14) bilirubin, total 0.6 mg/dL 0.0-1. 2 normal Not Available [facility] ([facility]) [address] [facility] [place], [address], 12/02/2023 04:11:23 12/01/19 24 12/02/2023 COMP. METAB OLIC PANEL (14) alkaline phosphatase 63 IU/L 44-121 normal Not Available [facility] ([facility]) [address] [facility] [place], [address], 12/02/2023 04:11:23 12/01/19 24 12/02/2023 COMP. METAB OLIC PANEL (14) AST (SGOT) 26 IU/L 0-40 normal Not Available [facility] ([facility]) [address] [facility] [place], [address], 12/02/2023 04:11:23 12/01/19 24 12/02/2023 COMP. METAB OLIC PANEL (14) ALT (SGPT) 21 IU/L 0-32 normal Not Available [facility] ([facility]) [address] [facility] [place], [address], 12/02/2023 04:11:23 12/01/19 24 12/02/2023 LIPID PANEL cholesterol, total 136 mg/dL 100-19 9 normal Not Available [facility] ([facility]) [address] [facility] [place], [address], 12/02/2023 04:11:24 12/01/19 24 12/02/2023 LIPID PANEL triglyceride s 200 mg/dL 0-149 above high normal Not Available [facility] ([facility]) [address] [place], [address], 12/02/2023 04:11:24 12/01/19 24 12/02/2023 LIPID PANEL HDL cholesterol 33 mg/dL >39 below low normal Not Available [facility] ([facility]) [address] [place], [address], 12/02/2023 04:11:24 12/01/19 24 12/02/2023 LIPID PANEL VLDL cholesterol treva 33 mg/dL 5-40 Not Available [facility] ([facility]) [address] [place], [address], 12/02/2023 04:11:24 12/01/19 24 12/02/2023 LIPID PANEL LDL chol calc ([facility]) 70 mg/dL 0-99 Not Available [facility] ([facility]) [address] [facility] [place], [address], 12/02/2023 04:11:24 12/01/19 24 12/02/2023 LIPID PANEL LDL calc comment: CLIENT TECHNOLOGIES SPECIALIST Not Available [facility] ([facility]) [address] [place], [address], 12/02/2023 04:11:24 04 25 06/02/2024 TOXAS SURE FLEX 23, UR summary report FINAL ===== ===== ===== ===== ===== ===== ===== ===== ===== ===== ===== ===== ===== === Aceta minop hen, MS, Ur RFX ToxAs sure Flex 23, Ur ===== ===== ===== ===== ===== ===== ===== ===== ===== ===== ===== ===== ===== === Test Resul t Flag Units Drug Prese nt Alpra zolam 193 ng/mg creat Alpha -hydr oxyal prazo mojica 355 ng/mg creat Sourc e of alpra zolam is a sched uled presc ripti on medic ation . Alpha -hydr oxyal prazo mojica is an expec bev metab olite of alpra zolam . Aceta minop hen PRESE NT ===== ===== ===== ===== ===== ===== ===== ===== ===== ===== ===== ===== ===== === Test Resul t Flag Units Ref Range Creat inine 106 mg/dL >=20 ===== ===== ===== ===== ===== ===== ===== ===== ===== ===== ===== ===== ===== === Decla red Medic ation s: Medic ation list was not provi ded. ===== ===== ===== ===== ===== ===== ===== ===== ===== ===== ===== ===== ===== === For clini treva consu ltati on, pleas e call [phone]. ===== ===== ===== ===== ===== ===== ===== ===== ===== ===== ===== ===== ===== === Not Available [facility] ([facility]) [address] [place], [address], 06/02/2024 11:24:42 05/31/19 25 06/02/2024 TOXAS SURE FLEX 23, UR pdf . Not Available [facility] ([facility]) [address] [place], [address], 06/02/2024 11:24:42 05/31/19 25 06/02/2024 TOXAS SURE FLEX 23, UR creatinine 106 mg/dL REFER ENCE RANGE : Ref Range >=20 Not Available [facility] ([facility]) [address] [place], [address], 06/02/2024 11:24:42 05/31/19 25 06/02/2024 TOXAS SURE FLEX 23, UR amphetamines ia Negati ve NG/mL cutoff :300 Not Available [facility] ([facility]) [address] [place], [address], 06/02/2024 11:24:42 05/31/19 25 06/02/2024 TOXAS SURE FLEX 23, UR benzodiazepi geovanni +POSIT ROMAN+ Not Available [facility] ([facility]) [address] [place], [address], 06/02/2024 11:24:42 05/31/19 25 06/02/2024 TOXAS SURE FLEX 23, UR diazepam Not Detect ed NG/mg _crea t Not Available [facility] ([facility]) [address] [facility], [place], [address], 06/02/2024 11:24:42 05/31/19 25 06/02/2024 TOXAS SURE FLEX 23, UR desmethyldia zepam Not Detect ed NG/mg _crea t Not Available [facility] ([facility]) [address] [facility], [place], [address], 06/02/2024 11:24:42 05/31/19 25 06/02/2024 TOXAS SURE FLEX 23, UR oxazepam Not Detect ed NG/mg _crea t Not Available [facility] ([facility]) [address] [facility], [place], [address], 06/02/2024 11:24:42 05/31/19 25 06/02/2024 TOXAS SURE FLEX 23, UR temazepam Not Detect ed NG/mg _crea t Expec bev metab olism of benzo diaze pine class drugs : Paren t Drug Detec bev Metab olite s ----- ----- - ----- ----- ----- ----- Diaze kathy: Desme thyld iazep am, Temaz epam, Oxaze kathy Chlor diaze poxid e: Desme thyld iazep am, Oxaze kathy Clora zepat e: Desme thyld iazep am, Oxaze kathy Halaz epam: Desme thyld iazep am, Oxaze kathy Temaz epam: Oxaze kathy Oxaze kathy: None Not Available [facility] ([facility]) [address] [facility], [place], [address], 06/02/2024 11:24:42 05/31/19 25 06/02/2024 TOXAS SURE FLEX 23, UR alprazolam 193 NG/mg _crea t Not Available [facility] ([facility]) [address] [facility], [place], [address], 06/02/2024 11:24:42 05/31/19 25 06/02/2024 TOXAS SURE FLEX 23, UR alpha-hydrox yalprazolam 355 NG/mg _crea t Not Available [facility] ([facility]) [address] [place], [address], 06/02/2024 11:24:42 05/31/19 25 06/02/2024 TOXAS SURE FLEX 23, UR desalkylflur azepam Not Detect ed NG/mg _crea t Not Available [facility] ([facility]) [address] [place], [address], 06/02/2024 11:24:42 05/31/19 25 06/02/2024 TOXAS SURE FLEX 23, UR lorazepam Not Detect ed NG/mg _crea t Not Available [facility] ([facility]) [address] [place], [address], 06/02/2024 11:24:42 05/31/19 25 06/02/2024 TOXAS SURE FLEX 23, UR alpha-hydrox ytriazolam Not Detect ed NG/mg _crea t Not Available [facility] ([facility]) [address] [place], [address], 06/02/2024 11:24:42 05/31/19 25 06/02/2024 TOXAS SURE FLEX 23, UR clonazepam Not Detect ed NG/mg _crea t Not Available [facility] ([facility]) [address] [place], [address], 06/02/2024 11:24:42 05/31/19 25 06/02/2024 TOXAS SURE FLEX 23, UR 7-aminoclona zepam Not Detect ed NG/mg _crea t Not Available [facility] ([facility]) [address] [place], [address], 06/02/2024 11:24:42 05/31/19 25 06/02/2024 TOXAS SURE FLEX 23, UR midazolam Not Detect ed NG/mg _crea t Not Available [facility] ([facility]) [address] [place], [address], 06/02/2024 11:24:42 05/31/19 25 06/02/2024 TOXAS SURE FLEX 23, UR alpha-hydrox ymidazolam Not Detect ed NG/mg _crea t Not Available [facility] ([facility]) [address] [place], [address], 06/02/2024 11:24:42 05/31/19 25 06/02/2024 TOXAS SURE FLEX 23, UR flunitrazepa m Not Detect ed NG/mg _crea t Not Available [facility] ([facility]) [address] [place], [address], 06/02/2024 11:24:42 05/31/19 25 06/02/2024 TOXAS SURE FLEX 23, UR desmethylflu nitrazepam Not Detect ed NG/mg _crea t Not Available [facility] ([facility]) [address] [place], [address], 06/02/2024 11:24:42 05/31/19 25 06/02/2024 TOXAS SURE FLEX 23, UR cocaine metabolite ia Negati ve NG/mL cutoff :150 Not Available [facility] ([facility]) [address] [place], [address], 06/02/2024 11:24:42 05/31/19 25 06/02/2024 TOXAS SURE FLEX 23, UR ethyl alcohol enzymatic Negati ve g/dL cutoff :0.020 Not Available [facility] ([facility]) [address] [place], [address], 06/02/2024 11:24:42 05/31/19 25 06/02/2024 TOXAS SURE FLEX 23, UR ethanol biomarkers ia Negati ve NG/mL cutoff :500 Not Available [facility] ([facility]) [address] [place], [address], 06/02/2024 11:24:42 05/31/19 25 06/02/2024 TOXAS SURE FLEX 23, UR cannabinoids ia Negati ve NG/mL cutoff :20 Not Available [facility] ([facility]) [address] [place], [address], 06/02/2024 11:24:42 05/31/19 25 06/02/2024 TOXAS SURE FLEX 23, UR 6-acetylmorp fernandez ia Negati ve NG/mL cutoff :10 Not Available [facility] ([facility]) [address] [place], [address], 06/02/2024 11:24:42 05/31/19 25 06/02/2024 TOXAS SURE FLEX 23, UR opiate class ia Negati ve NG/mL cutoff :100 Not Available [facility] ([facility]) [address] [place], [address], 06/02/2024 11:24:42 05/31/19 25 06/02/2024 TOXAS SURE FLEX 23, UR oxycodone class ia Negati ve NG/mL cutoff :100 Not Available [facility] ([facility]) [address] [place], [address], 06/02/2024 11:24:42 05/31/19 25 06/02/2024 TOXAS SURE FLEX 23, UR methadone ia Negati ve NG/mL cutoff :100 Not Available [facility] ([facility]) [address] [place], [address], 06/02/2024 11:24:42 05/31/19 25 06/02/2024 TOXAS SURE FLEX 23, UR methadone mtb ia Negati ve NG/mL cutoff :100 Not Available [facility] ([facility]) [address] [place], [address], 06/02/2024 11:24:42 05/31/19 25 06/02/2024 TOXAS SURE FLEX 23, UR buprenorphin e Negati ve Not Available [facility] ([facility]) [address] [place], [address], 06/02/2024 11:24:42 05/31/19 25 06/02/2024 TOXAS SURE FLEX 23, UR buprenorphin e Not Detect ed NG/mg _crea t Not Available [facility] ([facility]) [address] [place], [address], 06/02/2024 11:24:42 05/31/19 25 06/02/2024 TOXAS SURE FLEX 23, UR norbuprenorp fernandez Not Detect ed NG/mg _crea t Not Available [facility] ([facility]) [address] [place], [address], 06/02/2024 11:24:42 05/31/19 25 06/02/2024 TOXAS SURE FLEX 23, UR fentanyl / analogues Negati ve Not Available [facility] ([facility]) [address] [place], [address], 06/02/2024 11:24:42 05/31/19 25 06/02/2024 TOXAS SURE FLEX 23, UR fentanyl Not Detect ed NG/mg _crea t Not Available [facility] ([facility]) [address] [place], [address], 06/02/2024 11:24:42 05/31/19 25 06/02/2024 TOXAS SURE FLEX 23, UR norfentanyl Not Detect ed NG/mg _crea t Not Available [facility] ([facility]) [address] [place], [address], 06/02/2024 11:24:42 05/31/19 25 06/02/2024 TOXAS SURE FLEX 23, UR tapentadol ia Negati ve NG/mL cutoff :200 Not Available [facility] ([facility]) [address] [place], [address], 06/02/2024 11:24:42 05/31/19 25 06/02/2024 TOXAS SURE FLEX 23, UR meperidine ia Negati ve NG/mL cutoff :200 Not Available [facility] ([facility]) [address] [place], [address], 06/02/2024 11:24:42 05/31/19 25 06/02/2024 TOXAS SURE FLEX 23, UR propoxyphene ia Negati ve NG/mL cutoff :300 Not Available [facility] ([facility]) [address] [place], [address], 06/02/2024 11:24:42 05/31/19 25 06/02/2024 TOXAS SURE FLEX 23, UR tramadol ia Negati ve NG/mL cutoff :200 Not Available [facility] ([facility]) [address] [place], [address], 06/02/2024 11:24:42 05/31/19 25 06/02/2024 TOXAS SURE FLEX 23, UR barbiturates ia Negati ve NG/mL cutoff :200 Not Available [facility] ([facility]) [address] [place], [address], 06/02/2024 11:24:42 05/31/19 25 06/02/2024 TOXAS SURE FLEX 23, UR other hallucinogen s Negati ve Not Available [facility] ([facility]) [address] [place], [address], 06/02/2024 11:24:42 05/31/19 25 06/02/2024 TOXAS SURE FLEX 23, UR ketamine Not Detect ed Not Available [facility] ([facility]) [address] [place], [address], 06/02/2024 11:24:42 05/31/19 25 06/02/2024 TOXAS SURE FLEX 23, UR norketamine Not Detect ed Not Available [facility] ([facility]) [address] [place], [address], 06/02/2024 11:24:42 05/31/19 25 06/02/2024 TOXAS SURE FLEX 23, UR phencyclidin e ia Negati ve NG/mL cutoff :25 Not Available [facility] ([facility]) [address] [place], [address], 06/02/2024 11:24:42 05/31/19 25 06/02/2024 TOXAS SURE FLEX 23, UR gabapentin ia Negati ve ug/mL cutoff :1.0 Not Available [facility] ([facility]) [address] [place], [address], 06/02/2024 11:24:42 05/31/19 25 06/02/2024 TOXAS SURE FLEX 23, UR carisoprodol ia Negati ve NG/mL cutoff :100 Not Available [facility] ([facility]) [address] [place], [address], 06/02/2024 11:24:42 05/31/19 25 06/02/2024 TOXAS SURE FLEX 23, UR sedative/hyp notics Negati ve Not Available [facility] ([facility]) [address] [place], [address], 06/02/2024 11:24:42 05/31/19 25 06/02/2024 TOXAS SURE FLEX 23, UR zolpidem Not Detect ed Not Available [facility] ([facility]) [address] [place], [address], 06/02/2024 11:24:42 05/31/19 25 06/02/2024 TOXAS SURE FLEX 23, UR zolpidem acid Not Detect ed Not Available [facility] ([facility]) [address] [place], [address], 06/02/2024 11:24:42 05/31/19 25 06/02/2024 TOXAS SURE FLEX 23, UR zopiclone/es zopiclone Not Detect ed Not Available [facility] ([facility]) [address] [facility], [place], [address], 06/02/2024 11:24:42 05/31/19 25 06/02/2024 TOXAS SURE FLEX 23, UR amino chloropyridi ne Not Detect ed Not Available [facility] ([facility]) [address] [facility], [place], [address], 06/02/2024 11:24:42 05/31/19 25 06/02/2024 TOXAS SURE FLEX 23, UR zaleplon Not Detect ed Expec bev metab olism of Sedat florencia/ Hypno tics: Paren t Drug Detec bev Metab olite s ----- ----- - ----- ----- ----- ----- Zolpi dem: Zolpi dem Acid Zopic lone/ Eszop iclon e: Amino Chlor opyri dine Zalep michelle: None Not Available [facility] ([facility]) [address] [facility], [place], [address], 06/02/2024 11:24:42 05/31/19 25 06/02/2024 TOXAS SURE FLEX 23, UR acetaminophe n ia COMMEN T ug/mL cutoff :5.0 Furth er testi ng indic ated Not Available [facility] ([facility]) [address] [facility], [place], [address], 06/02/2024 11:24:42 05/31/19 25 06/02/2024 TOXAS SURE FLEX 23, UR miscellaneou s Negati ve Not Available [facility] ([facility]) [address] [place], [address], 06/02/2024 11:24:42 05/31/19 25 06/02/2024 TOXAS SURE FLEX 23, UR dextromethor fairbanks Not Detect ed Not Available [facility] ([facility]) [address] [place], [address], 06/02/2024 11:24:42 05/31/19 25 06/02/2024 TOXAS SURE FLEX 23, UR dextrorphan/ levorphanol Not Detect ed Expec bev metab olism of Dextr ometh orpha n and Dextr orpha n/Lev orpha nol: Paren t Drug Detec bev Metab olite s ----- ----- - ----- ----- ----- ----- Dextr ometh orpha n: Dextr orpha n Dextr orpha n/Lev orpha nol: None Dextr ophan canno t be disti nguis hed from Levor phano l by the metho d used for zuleyma sis. Not Available [facility] ([facility]) [address] [place], [address], 06/02/2024 11:24:42 05/31/19 25 06/02/2024 ACETA KAMI DINERO, MS, UR RFX analgesics/n saids +POSIT ROMAN+ Not Available [facility] ([facility]) [address] [place], [address], 06/02/2024 11:24:43 05/31/19 25 06/02/2024 ACETPatito DINERO, MS, UR RFX acetaminophe n PRESEN T Not Available [facility] ([facility]) [address] [place], [address], 06/02/2024 11:24:43 06/01/19 25 06/01/2024 COMP. METAB OLIC PANEL (14) glucose 88 mg/dL 70-99 normal Not Available [facility] ([facility]) [address] [place], [address], 06/01/2024 09:06:56 06/01/19 25 06/01/2024 COMP. METAB OLIC PANEL (14) BUN 21 mg/dL 8-27 normal Not Available [facility] ([facility]) [address] [facility] [place], [address], 06/01/2024 09:06:56 06/01/19 25 06/01/2024 COMP. METAB OLIC PANEL (14) creatinine 1.02 mg/dL 0.57-1 .00 above high normal Not Available [facility] ([facility]) [address] [facility] [address], [place], [address], 06/01/2024 09:06:56 06/01/19 25 06/01/2024 COMP. METAB OLIC PANEL (14) eGFR 60 mL/mi n/1.7 3 >59 normal Not Available [facility] ([facility]) [address] [facility] [address], [place], [address], 06/01/2024 09:06:56 06/01/19 25 06/01/2024 COMP. METAB OLIC PANEL (14) BUN/creatini ne ratio 21 12-28 normal Not Available [facility] ([facility]) [address] [place], [address], 06/01/2024 09:06:56 06/01/19 25 06/01/2024 COMP. METAB OLIC PANEL (14) sodium 138 mmol/ L 134-14 4 normal Not Available [facility] ([facility]) [address] [place], [address], 06/01/2024 09:06:56 06/01/19 25 06/01/2024 COMP. METAB OLIC PANEL (14) potassium 3.9 mmol/ L 3.5-5. 2 normal Not Available [facility] ([facility]) [address] [place], [address], 06/01/2024 09:06:56 06/01/19 25 06/01/2024 COMP. METAB OLIC PANEL (14) chloride 97 mmol/ L 96-106 normal Not Available [facility] ([facility]) [address] [facility] [place], [address], 06/01/2024 09:06:56 06/01/19 25 06/01/2024 COMP. METAB OLIC PANEL (14) carbon dioxide, total 27 mmol/ L 20-29 normal Not Available [facility] ([facility]) [address] [facility] [place], [address], 06/01/2024 09:06:56 06/01/19 25 06/01/2024 COMP. METAB OLIC PANEL (14) calcium 10.1 mg/dL 8.7-10 .3 normal Not Available [facility] ([facility]) [address] [facility] [place], [address], 06/01/2024 09:06:56 06/01/19 25 06/01/2024 COMP. METAB OLIC PANEL (14) protein, total 7.2 g/dL 6.0-8. 5 normal Not Available [facility] ([facility]) [address] [facility] [place], [address], 06/01/2024 09:06:56 06/01/19 25 06/01/2024 COMP. METAB OLIC PANEL (14) albumin 4.2 g/dL 3.9-4. 9 normal Not Available [facility] ([facility]) [address] [facility] [place], [address], 06/01/2024 09:06:56 06/01/19 25 06/01/2024 COMP. METAB OLIC PANEL (14) globulin, total 3.0 g/dL 1.5-4. 5 Not Available [facility] ([facility]) [address] [facility] [place], [address], 06/01/2024 09:06:56 06/01/19 25 06/01/2024 COMP. METAB OLIC PANEL (14) bilirubin, total 0.4 mg/dL 0.0-1. 2 normal Not Available [facility] ([facility]) [address] [facility] [place], [address], 06/01/2024 09:06:56 06/01/19 25 06/01/2024 COMP. METAB OLIC PANEL (14) alkaline phosphatase 75 IU/L 44-121 normal Not Available [facility] ([facility]) [address] [facility] [place], [address], 06/01/2024 09:06:56 06/01/19 25 06/01/2024 COMP. METAB OLIC PANEL (14) AST (SGOT) 20 IU/L 0-40 normal Not Available [facility] ([facility]) [address] [facility] [place], [address], 06/01/2024 09:06:56 06/01/19 25 06/01/2024 COMP. METAB OLIC PANEL (14) ALT (SGPT) 21 IU/L 0-32 normal Not Available [facility] ([facility]) [address] [facility] [place], [address], 06/01/2024 09:06:56 06/01/19 25 06/01/2024 LIPID PANEL cholesterol, total 138 mg/dL 100-19 9 normal Not Available [facility] ([facility]) [address] [facility] [place], [address], 06/01/2024 09:06:57 06/01/19 25 06/01/2024 LIPID PANEL triglyceride s 158 mg/dL 0-149 above high normal Not Available [facility] ([facility]) [address] [facility] [place], [address], 06/01/2024 09:06:57 06/01/19 25 06/01/2024 LIPID PANEL HDL cholesterol 34 mg/dL >39 below low normal Not Available [facility] ([facility]) [address] [facility] [place], [address], 06/01/2024 09:06:57 04/09/20 25 06/01/2024 LIPID PANEL VLDL cholesterol treva 27 mg/dL 5-40 Not Available [facility] ([facility]) [address] [place], [address], 06/01/2024 09:06:57 06/01/19 25 06/01/2024 LIPID PANEL LDL chol calc ([facility]) 77 mg/dL 0-99 Not Available [facility] ([facility]) [address] [facility], [place], [address], 06/01/2024 09:06:57 06/01/19 25 06/01/2024 LIPID PANEL LDL calc comment: CLIENT TECHNOLOGIES SPECIALIST Not Available [facility] ([facility]) [address] [facility], [place], [address], 06/01/2024 09:06:57 06/01/1906/01/2024 VITAM IN D, 25-HY DROXY vitamin D, 25-hydroxy 67.2 NG/mL 30.0-1 00.0 Vitam in D defic iency has been defin ed by the Insti tute of Medic ine and an Endoc rine Socie ty pract ice guide line as a level of serum 25-OH vitam in D less than 20 ng/mL (1,2) . The Endoc rine Socie ty went on to [facility] er defin e vitam in D insuf ficie ncy as a level betwe en 21 and 29 ng/mL (2). 1. IOM (Inst itute of Medic ine). 2010. Dieta ry refer ence intak es for calci um and D. Jhon saleem [place]: [facility] . 2. Alba hugo MF, Koko cr [place], Arsenio off-F sandy i [place], et al. Evalu ation , treat ment, and preve ntion of vitam in D defic iency : an Endoc rine Socie ty clini treav pract ice guide line. JCEM. 2010; 96(7) :1911 -30. Not Available [facility] ([facility]) [address] [place], [address], 06/01/2024 09:06:58 05/25/19 25 05/24/2024 cardi ac stres s test No observ ation record ed. [facility] [address], [place], [address], 05/24/2024 13:09:05 05/25/19 25 05/24/2024 cardi ac stres s test No observ ation record ed. [facility] [address], [place], [address], 05/24/2024 13:09:28 06/04/19 25 05/23/2024 US, doppl er echoc ardio gram No observ ation record ed. [facility] [address], [place], [address], 06/05/2024 08:08:53 06/21/19 25 06/16/2024 CT, coron aisha calci um score No observ ation record ed. [facility] [address], [place], [address], 06/20/2024 12:32:29 07/15/19 25 07/13/2024 MAMMO , scree yolanda, bilat eral No observ ation record ed. [email or web address] [facility] [address] [place], [address], 07/18/2024 09:07:02 Result Notes None recorded. 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 Active 2020 Dianelys Petty null, [place] - [facility] 1 22:46:05 Chronic diarrhea 284993126 Active 2020 Kiley Morel PA-C [address], [place], [address], [place] [facility] 1 09:00:12 Achalasi a 92569354 Active 2020 Kiley Morel PA-C [address], [place], [address], [place] [facility] 1 09:00:46 Body mass index 25-29 - overweig ht 107891846 Active 2020 Kiley Morel PA-C [address], [place], [address], [place] [facility] 1 08:38:11 Chronic kidney disease 175868858 Active 2021 Kiley Morel PA-C [address], [place], [address], [place] [facility] 2 12:06:01 Osteopor osis 71589381 Active Zo Ivana null, [place] - [facility] 2 16:30:04 Esophagi tis 85182909 Active [place] grade B esophagi tis Zo Ivana [place], [place] - [facility] 2 16:37:40 Gastroes ophageal reflux disease 364435590 Active Mayte Olson [place], [place] - [facility] 6 08:30:30 Essentia l hyperten ian 61390031 Active Mayte Olson [place] [facility] 6 08:30:38 Hyperlip idemia 16628679 Active Mayte Olson [place] - [facility] 6 08:30:44 Anxiety 74545818 Active Mayte Olson [place] - [facility] 6 08:30:49 Chronic headache disorder 777044043 Active 2022 Kiley Morel PA-C [address], [place], [address], [place] [facility] 3 08:53:46 Problem Notes None recorded. Procedures Surgical History Date Name Laterality Status Provider Name and Address Organization Details Recorded Time 07/13 Date of Last Mammogram completed Anna Garcia APRN [address], [place], [address], [place] [facility] 5 08:32:10 06/19 Infusion Center completed Infusion Nurse [facility] [address], [place], [address], [place] [facility] 5 10:48:06 05/31 Advance Care Planning completed Kiley Morel PA-C [address], [place], [address], [place] [facility] 5 11:51:32 05/31 Functional Status Assessed completed Kiley mccormack PA-C [address], [place], [address], [place] [facility] 5 11:51:33 03/24 esophageal manometry completed Kiley Morel PA-C [address], [place], [address], [place] [facility] 5 08:41:43 01/04 Date of Last Colonoscopy completed Anna Martinesmond, ENGINE MECHANIC [address], [place], [address], [place] [facility] 5 08:40:14 01/04 Colonoscopy completed Kiley Morel PA-C [address], [place], [address], [place] [facility] 5 08:41:04 01/04 esophagogastroduodenoscopy completed Kiley mccormack PA-C [address], [place], [address], [place] [facility] 5 08:41:18 05/31 Advance Care Planning completed Abimbola [place] - [facility] 4 08:28:51 05/31 Functional Status Assessed completed Abibmola Hugo [place] - [facility] 4 08:28:51 03/05 Most Recent Bone Density completed Anna Garcia, ENGINE MECHANIC [address], [place], [address], [place] - [facility] 4 23:22:30 01/28 extraction of cataract completed Abimbola [place] - [facility] 4 09:32:48 12/31 Date of Last Pap Smear completed Anna Garcia, ENGINE MECHANIC [address], [place], [address], [place] - [facility] 3 21:32:04 11/26 Advance Care Planning completed Abimbola [place] - [facility] 3 08:19:22 11/26 Functional Status Assessed completed Abimbola Hugo [place] - [facility] 3 08:19:22 08/20 Cerumen Removal completed Kiley Morel PA-C [address], [place], [address], [place] - [facility] 3 09:25:35 05/27 Advance Care Planning completed Abimbola [place] - [facility] 3 08:15:00 05/27 Functional Status Assessed completed Abimbola Hugo [place] - [facility] 3 08:15:00 11/10 Functional Status Assessed completed Abimbola Hugo [place] - [facility] 2 08:16:06 04/04 Endoscopy completed Zo Heath [place] - [facility] 2 16:34:28 06/18 Skin Tag Removal completed Argenis [place] - [facility] 1 13:45:13 05/31 Suture/Staple removal completed Argenis [place] - [facility] 1 08:33:05 05/21 Excision Benign Lesion completed Argenis [place] - [facility] 1 15:48:34 05/14 Functional Status Assessed completed Abimbola Hguo [place] - [facility] 1 08:08:10 02/25 Diastolic B/P greater than or equal to 90 mm Hg completed Amira Stone [place] - [facility] 1 08:33:07 02/25 Systolic B/P greater than or equal to 140 mm Hg completed Amira Stone [place] - [facility] 1 08:33:23 12/24 Systolic B/P less than 130 mm Hg completed Karlee Sahuey [place] - [facility] 0 08:29:11 12/24 Diastolic B/P less than 80 mm Hg completed Karlee Griffey [place] - [facility] 0 08:29:14 11/26 Diastolic B/P less than 80 mm Hg completed Lenore August [place] - [facility] 0 10:20:15 11/26 Systolic B/P greater than or equal to 140 mm Hg completed Lenore August [place] [facility] 0 10:20:10 11/08 Diastolic B/P less than 80 mm Hg completed Abimbola Magdi [place] - [facility] 0 08:45:31 11/08 Systolic B/P greater than or equal to 140 mm Hg completed Abimbola Magdi [place] [facility] 0 08:45:28 09/24 Diastolic B/P less than 80 mm Hg completed Abimbola Magdi [place] [facility] 0 09:06:38 09/24 Systolic B/P greater than or equal to 140 mm Hg completed Abimbola Magdi [place] [facility] 0 09:06:42 08/29 Systolic B/P less than 130 mm Hg completed Amira Stone [place] - [facility] 0 08:20:14 08/29 Diastolic B/P 80-89 mm Hg completed Amira Stone [place] - [facility] 0 08:20:11 06/11 Systolic B/P less than 130 mm Hg completed Abimbola Magdi [place] [facility] 0 08:48:35 06/11 Diastolic B/P less than 80 mm Hg completed Abimbola Magdi [place] [facility] 0 08:48:38 03/06 Diastolic B/P 80-89 mm Hg completed Lenore August [place] - [facility] 0 08:20:48 03/06 Systolic B/P 130-139 mm Hg completed Lenore August [place] - [facility] 0 08:20:44 02/13 Systolic B/P less than 130 mm Hg completed Abimbola Bakercker [place] - [facility] 9 10:12:01 02/13 Diastolic B/P less than 80 mm Hg completed Abimbola Magdi [place] - [facility] 9 10:12:07 11/30 Systolic B/P less than 130 mm Hg completed Lenore August [place] - [facility] 9 08:42:45 11/30 Diastolic B/P less than 80 mm Hg completed Lenore August [place] [facility] 9 08:42:49 09/14 Diastolic B/P less than 80 mm Hg completed Lenore August [place] [facility] 9 08:47:03 09/14 Systolic B/P greater than or equal to 140 mm Hg completed Lenore August [place] [facility] 9 08:46:54 09/08 Colonoscopy completed Kiley Morel PA-C [address], [place], [address] [place] - [facility] 2 08:39:14 08/04 Systolic B/P less than 130 mm Hg completed Lenore August [place] - [facility] 9 13:06:46 08/04 Diastolic B/P 80-89 mm Hg completed Lenore August [place] [facility] 9 13:06:53 04/15 Systolic B/P less than 130 mm Hg completed Amira Stone [place] - [facility] 9 08:55:35 04/15 Diastolic B/P less than 80 mm Hg completed Amira Stone [place] [facility] 9 08:55:14 03/30 Systolic B/P less than 130 mm Hg completed Lenore August [place] [facility] 9 08:27:00 03/30 Diastolic B/P 80-89 mm Hg completed Lenore August [place] [facility] 9 08:27:08 01/18 Endometrial Biopsy completed Tia Gonzalez [place] - [facility] 8 15:18:43 Tubal Ligation completed Mayte Olson [place] [facility] 6 08:32:08 Hernia Repair completed Mayte Olson [place] [facility] 6 08:32:19 Cardiac Cath completed Mayte Olson [place] [facility] 6 08:33:11 Gastrointestinal Surgery completed Kiley Morel PA-C [address], [place], [address], [facility] - [facility] 8 08:25:10 Imaging Results None recorded. Procedure Notes None recorded. Medical Equipment None Reported. Allergies Allergen ID Allergen Name Allergen Category Reaction Reaction Severity Criticality Documentation Date Start Date Code Code System Note Provider Name and Address Organization Details Recorded Time 644534 [facility] medicatio n dizziness Not available Not available 04/14/2022 55217 14 RxNorm Kiley Morel PA-C [address], [place], [address], [facility] - [facility] 3 08:31:20 68946 methylpre dnisolone medicatio n Not available Not available Not available 11/29/20152008 6902 RxNorm Not Available [facility] 6 08:20:44 87683 Zocor medicatio n Not available Not available Not available 11/29/20152008 64693 3 RxNorm React ion: tingl ing, gas,c ramps ; Not Available [facility] 6 08:20:44 66206 lisinopri l medicatio n cough Not available Not available 11/29/20152008 96090 RxNorm Kiley Morel PA-C [address], [place], [address], [facility] - [facility] 7 11:39:15 14727 Zoloft medicatio n Not available Not available Not available 11/29/20152007 29619 RxNorm React ion: Edema pares thesi as; Kiley Morel PA-C [address], [place], [address], [facility] - [facility] 7 11:40:39 42797 codeine sulfate medicatio n vomiting Not available Not available 11/29/20152008 82150 RxNorm Kiley Morel PA-C [address], [place], [address], [facility] - [facility] 7 11:39:05 87109 Paxil medicatio n Not available Not available Not available 11/29/20152008 26515 8 RxNorm React ion: feels hot; Not Available [facility] 6 08:53:02 41728 Substance with sulfonami de structure and antibacte rial mechanism of action (substanc e) medicatio n Not available Not available Not available 11/29/20152008 37573 8003 SNOMED React ion: can't remem desi; Not Available [facility] 6 08:53:02 85211 Product containin g penicilli n (product) medicatio n edema Not available Not available 11/29/20152007 71486 8001 SNOMED Kiley Morel PA-C [address], [place], [address], [facility] - [facility] 7 11:39:48 13121 cefdinir medicatio n itching Not available Not available 11/29/20152010 41900 RxNorm Kiley Morel PA-C [address], [place], [address], [facility] - [facility] 7 11:39:00 05719 dexametha sone medicatio n itching Not available Not available 11/29/20152008 3264 RxNorm Kiley Morel PA-C [address], [place], [address], [facility] - [facility] 7 11:39:09 Medications Name Sig Start Date Stop Date Status Note LastModified by Organization Details LastModified Time vitamin d-3 2,000 unit tab 02/25 completed Not Available Not Available Not Available cyclobenz aprine 10 mg tablet Take 1 tablet 3 times a day by oral route for 30 days. 12/31 completed Not Available Not Available Not Available latanopro st 0.005 % eye drops INSTILL ONE DROP AT BEDTIME IN BOTH EYES active Not Available Not Available No t Available buspirone 5 mg tablet take 1 tablet (5 mg) by oral route 2 times per day 10/30 completed buspiron e 5 mg oral tablet;R ecorded Status: Recorded on: 01/16/20 14 8:28AM;D iscontin ued Status: Disconti nued on: 10/31/19 15 8:17AM;U ser: [email or web address] Not Available Not Available Not Available promethaz ine-DM 6.25 mg-15 mg/5 mL oral syrup Take 5 mL every 6 hours by oral route as needed. 04/15 completed Not Available Not Available Not Available Benadryl 50 mg capsule 1 po q8h 09/04 completed Benadryl 50 mg oral capsule; Recorded Status: Recorded on: 11/26/19 08 10:05PM; Disconti nued Status: Disconti nued on: 09/05/19 09 8:26AM;U ser: [email or web address] Not Available Not Available Not Available Evista 60 mg tablet take 1 tablet (60 mg) by oral route once daily for 30 days 12/17 completed Evista 60 mg oral tablet;R ecorded Status: Recorded on: 11/28/19 09 2:04PM;D iscontin ued Status: Disconti nued on: 12/18/19 09 8:42AM;U ser: [email or web address];Es t. Completi on: 11/23/19 10;Indic ation: Post-Men opausal Osteopor osis Preventi on - (13.7330 11);Prin bev: 11/28/19 09 Not Available Not Available Not Available cetirizin e 10 mg tablet TAKE ONE TABLET BY MOUTH ONCE DAILY active Not Available Not Available No t Available azithromy rosalio 250 mg tablet TAKE 2 TABLETS BY MOUTH ON DAY 1, THEN TAKE 1 TABLET DAILY ON DAYS 2-5 active Not Available Not Available No t Available ketotifen 0.025 % (0.035 %) eye drops INSTILL ONE DROP EACH EYE TWICE DAILY NEEDED active Not Available Not Available No t Available Keflex 500 mg capsule take 1 capsule (500 mg) by oral route every 12 hours for 10 days 05/06 completed Keflex 500 mg oral capsule; Recorded Status: Recorded on: 02/12/20 10 8:44AM;D iscontin ued Status: Disconti nued on: 05/07/19 11 8:52AM;U ser: [email or web address]; Est. Completi on: 02/22/20 10;Print ed: 02/12/20 10 Not Available Not Available Not Available sucralfat e 1 gram tablet crush ONE tablet AND mix in 30ml warm water DRINK TWICE DAILY FOR FOURTEEN DAYS - DO not eat OR drink FOR 30min AFTER DOSE active Not Available Not Available No t Available phenazopy ridine 200 mg tablet take 1 tablet (200 mg) by oral route 3 times per day after meals for 2 days 05/21 completed phenazop yridine 200 mg oral tablet;P rescribe Status: Prescrib ed on: 05/08/19 15 9:13AM;D iscontin ued Status: Disconti nued on: 05/22/19 15 8:44AM;U ser: [email or web address]; Est. Completi on: 05/10/19 15;Indic ation: Urinary Tract Irritati on - (16.7889 00);Phar Jarad fied: 05/08/19 15 9:13AM Not Available Not Available Not Available ondansetr on HCl 4 mg tablet TAKE ONE TABLET BY MOUTH EVERY 8 HOURS NEEDED FOR FOR NAUSEA OR FOR VOMITING active Not Available Not Available No t Available Medrol (Guy) 4 mg tablets in a dose pack Take as Directed 09/04 completed Medrol (Guy) 4 mg oral tablets, dose pack;Rec orded Status: Recorded on: 11/26/19 08 10:04PM; Disconti nued Status: Disconti nued on: 09/05/19 09 8:26AM;U ser: [email or web address] Not Available Not Available Not Available alendrona te 70 mg tablet TAKE ONE TABLET BY MOUTH ONCE WEEKLY IN THE MORNING. AT LEAST 30 MINUTES BEFORE THE FIRST FOOD,MARIO ERAGE,OR MEDICATI ON 12/29 completed Not Available Not Available Not Available naproxen 250 mg tablet take 1 tablet (250 mg) by oral route every 8 hours as needed with food for 5 days 02/04 completed naproxen 250 mg oral tablet;R ecorded Status: Recorded on: 12/18/19 09 6:20PM;D iscontin ued Status: Disconti nued on: 02/05/20 09 8:32AM;U ser: [email or web address];Es t. Completi on: 12/23/19 09;Indic ation: Pain - (16.7809 00);Prin bev: 12/18/19 09 Not Available Not Available Not Available Diflucan 150 mg tablet take 1 tablet (150 mg) by oral route x1 dose 11/18 completed Diflucan 150 mg oral tablet;R ecorded Status: Recorded on: 10/12/19 12 10:39AM; Disconti nued Status: Disconti nued on: 11/19/19 12 8:34AM;U ser: [email or web address];Es t. Completi on: 10/14/19 12;Print ed: 10/12/19 12 Not Available Not Available Not Available amlodipin e 2.5 mg tablet take 1 tablet (2.5 mg) by oral route once daily for 30 days 05/28 completed amlodipi ne 2.5 mg oral tablet;P rescribe Status: Prescrib ed on: 01/24/20 15 11:54AM; Disconti nued Status: Disconti nued on: 05/29/19 16 8:13AM;U ser: [email or web address]; Est. Completi on: 02/22/19 16;Pharm acyVerif ied: 01/24/20 15 11:54AM Not Available Not Available Not Available ciproflox acin 500 mg tablet TAKE ONE TABLET BY MOUTH EVERY TWELVE HOURS FOR 7 DAYS 01/27 completed Not Available Not Available Not Available amitripty line 50 mg tablet TAKE ONE TABLET BY MOUTH DAILY AT BEDTIME active Not Available Not Available No t Available triamcino lone acetonide 0.1 % topical cream APPLY A THIN LAYER TO THE AFFECTED AREA BY TOPICAL ROUTE TWICE DAILY 2022 active Not Available Not Available Not Avai lable Lipitor 20 mg tablet take 1 tablet (20 mg) by oral route once daily hs 12/03 completed Lipitor 20 mg oral tablet;R ecorded Status: Recorded on: 12/04/19 09 9:03AM;D iscontin ued Status: Disconti nued on: 12/04/19 09 9:09AM;U ser: [email or web address]; Printed: 12/04/19 Not Available Not Available Not Available Mi-Acid Gas Relief (simethic one) 80 mg chewable tablet CHEW ONE TABLET BY MOUTH 4 TIMES DAILY DIRECTED active Not Available Not Available No t Available losartan 100 mg-hydroc hlorothia zide 25 mg tablet TAKE ONE TABLET BY MOUTH EVERY MORNING active Not Available Not Available No t Available Tessalon Perles 100 mg capsule take 1 capsule (100 mg) by oral route 3 times per day prn cough 02/04 completed Tessalon Perles 100 mg oral capsule; Recorded Status: Recorded on: 12/04/19 9:03AM;D iscontin ued Status: Disconti nued on: 02/05/20 09 8:24AM;U ser: canarya; Indicati on: Cough - (16.7862 00);Prin bev: 12/04/19 Not Available Not Available Not Available alprazola m 0.5 mg tablet TAKE ONE TABLET BY MOUTH THREE TIMES DAILY NEEDED active Not Available Not Available No t Available pravastat in 80 mg tablet TAKE ONE TABLET BY MOUTH DAILY AT BEDTIME active Not Available Not Available No t Available amitripty line 25 mg tablet TAKE ONE TABLET AT BEDTIME 05/27 completed Not Available Not Available Not Available Zoloft 50 mg tablet 1 po qD 09/04 completed Zoloft 50 mg oral tablet;R ecorded Status: Recorded on: 11/26/19 08 10:05PM; Disconti nued Status: Disconti nued on: 09/05/19 09 8:26AM;U ser: [email or web address] Not Available Not Available Not Available Lipitor 40 mg tablet take 1 tablet (40 mg) by oral route once daily at bedtime 03/11 completed Lipitor 40 mg oral tablet;R ecorded Status: Recorded on: 01/28/20 11 12:22PM; Disconti nued Status: Disconti nued on: 03/11/19 12 11:35AM; User: [email or web address]; Printed: 01/28/20 11 Not Available Not Available Not Available Imodium A-D 2 mg tablet take 2 tablets (4 mg) by oral route after 1st loose stool and 1 tablet (2 mg) after each subseque nt bowel movement ; do not exceed 16 mg in 24hrs 02/04 completed Imodium A-D 2 mg oral tablet;R ecorded Status: Recorded on: 11/13/19 09 2:11PM;D iscontin ued Status: Disconti nued on: 02/05/20 09 8:32AM;U ser: shanice n;Indica tion: Diarrhea - (16.7879 10) Not Available Not Available Not Available antipyrin e-benzoca ine 5.4 %-1.4 % ear drops instill into affected ear(s) by otic route tid as needed enough drops to fill ear canal 06/05 completed antipyri ne-benzo lashon 5.4-1.4 % otic drops;Re corded Status: Recorded on: 05/20/19 11 8:56AM;D iscontin ued Status: Disconti nued on: 06/06/19 11 8:24AM;U ser: beatriz Jimenezti on: Earache - (06.3887 00);Prin bev: 05/20/19 11 Not Available Not Available Not Available Ear Wax Removal Drops 6.5 % INSTILL FIVE DROPS IN AFFECTED EAR(S) TWICE DAILY 11/26 completed Not Available Not Available Not Available meclizine 25 mg tablet Take 1 tablet 3 times a day by oral route as needed. 07/27 completed Not Available Not Available Not Available timolol maleate 0.25 % eye drops Instill 1 drop twice a day by ophthalm ic route as directed for 30 days. 02/25 completed Not Available Not Available Not Available doxycycli ne monohydra te 100 mg capsule Take 1 capsule twice a day by oral route. 11/18 completed Not Available Not Available Not Available pantopraz ole 40 mg tablet,de layed release TAKE ONE TABLET BY MOUTH TWICE DAILY BEFORE MEALS -DO NOT CRUSH, CHEW OR SPIT 05/31 completed Not Available Not Available Not Available simvastat in 20 mg tablet take 1 tablet (20 mg) by oral route once daily in the evening for 30 days 12/11 completed simvasta tin 20 mg oral tablet;R ecorded Status: Recorded on: 12/04/19 09 9:09AM;D iscontin ued Status: Disconti nued on: 12/12/19 09 9:12AM;U ser: [email or web address]; Est. Completi on: 03/03/19 10;Print ed: 12/04/19 Not Available Not Available Not Available esomepraz ole magnesium 40 mg capsule,d elayed release TAKE ONE CAPSULE BY MOUTH TWICE DAILY. DO not open CAPSULE active Not Available Not Available No t Available nitrofura ntoin macrocrys tess 100 mg capsule 11/30 completed Not Available Not Available Not Available lisinopri l 10 mg tablet take 1 tablet (10 mg) by oral route once daily 02/04 completed lisinopr il 10 mg oral tablet;R ecorded Status: Recorded on: 12/04/19 09 9:03AM;D iscontin ued Status: Disconti nued on: 02/05/20 09 8:41AM;U ser: canarya; Printed: 12/04/19 Not Available Not Available Not Available promethaz ine 25 mg tablet take 1 tablet by oral route q4-6h prn nausea/v omiting 07/25 completed prometha zine 25 mg oral tablet;P rescribe Status: Prescrib ed on: 04/24/19 15 9:55AM;D iscontin ued Status: Disconti nued on: 07/26/19 15 8:45AM;U ser: canarya; Indicati on: Nausea and Vomiting - (16.7870 10);Phar Jarad fied: 04/24/19 15 9:55AM Not Available Not Available Not Available Calcium-6 00 600 mg (as calcium carbonate 1,500 mg) tablet take 1 tablet by oral route 2 times a day for 30 days 02/28 completed Calcium 600 600 mg (1,500 mg) oral tablet;R ecorded Status: Recorded on: 12/23/19 11 11:41AM; User: Zenon Correai on: 05/21/19 12;Print ed: 12/23/19 11 Not Available Not Available Not Available docusate sodium 100 mg capsule TAKE ONE CAPSULE BY MOUTH TWICE DAILY IF NEEDED FOR CONSTIPA TION active Not Available Not Available No t Available omeprazol e 20 mg capsule,d elayed release TAKE ONE CAPSULE BY MOUTH ONCE DAILY BEFORE BREAKFAS T 11/04 completed Not Available Not Available Not Available monteluka st 10 mg tablet TAKE ONE TABLET BY MOUTH DAILY IN THE EVENING active Not Available Not Available No t Available hydrochlo rothiazid e 25 mg tablet TAKE ONE TABLET BY MOUTH ONCE DAILY 07/16 completed Not Available Not Available Not Available diclofena c sodium 50 mg tablet,de layed release Take 1 tablet twice a day by oral route for 30 days. 12/31 completed Not Available Not Available Not Available azelastin e 137 mcg (0.1 %) nasal spray INHALE TWO SPRAYS in EACH nostril TWICE DAILY active Not Available Not Available No t Available ibuprofen 600 mg tablet TAKE ONE TABLET BY MOUTH 3 TIMES DAILY NEEDED 12/24 completed Not Available Not Available Not Available polyethyl jose daniel glycol 3350 17 gram/dose oral powder MIX 17 GRAMS IN 4 TO 8 OUNCES OF LIQUID NEEDED FOR FOR CONSTIPA TION. TAKE ONE DOSE DAILY, HOLD ON DAYS HAVE LOOSE STOOL 05/31 completed Not Available Not Available Not Available Robafen 100 mg/5 mL oral liquid take 2-4 tsp q4-6h prn cough 12/07 completed Not Available Not Available Not Available Lactobaci llus acidophil us capsule Take 1 million cells twice a day by oral route. 08/05 completed Not Available Not Available Not Available timolol maleate 0.5 % eye drops INSTILL ONE DROP INTO BOTH EYES TWICE DAILY active Not Available Not Available No t Available ipratropi um bromide 42 mcg (0.06 %) nasal spray INSTILL 2 SPRAY INTO EACH NOSTRIL 3 TIMES DAILY 03/10 completed Not Available Not Available Not Available Cipro 250 mg tablet take 1 tablet (250 mg) by oral route every 12 hours for 7 days 01/22 completed Cipro 250 mg oral tablet;P rescribe Status: Prescrib ed on: 01/16/20 14 9:31AM;D iscontin ued Status: Disconti nued on: 01/23/20 14 1:47PM;U ser: canarya; Est. Completi on: 01/23/20 14;Pharm acyVerif ied: 01/16/20 14 9:31AM Not Available Not Available Not Available ondansetr on 4 mg disintegr ating tablet DISSOLVE 1 TABLET ON TONGUE EVERY 8 HOURS NEEDED 06/11 completed Not Available Not Available Not Available cefdinir 300 mg capsule take 1 capsule (300 mg) by oral route every 12 hours for 10 days 05/19 completed cefdinir 300 mg oral capsule; Recorded Status: Recorded on: 05/13/19 11 8:50AM;D iscontin ued Status: Disconti nued on: 05/20/19 11 8:38AM;U ser: canarya; Est. Completi on: 05/23/19 11;Print ed: 05/13/19 11 Not Available Not Available Not Available losartan 100 mg tablet TAKE ONE TABLET BY MOUTH ONCE DAILY ALONG WITH HCTZ FOR FULL DOSE OF 100-25 active Not Available Not Available No t Available Calcitrat e 200 mg (950 mg) tablet 1qd active Not Available Not Available Not Available clotrimaz ole 1 % topical cream APPLY ONE APPLICAT ION TWICE DAILY NEEDED 2023 active Not Available Not Available Not Avai lable dicyclomi ne 10 mg capsule TAKE ONE CAPSULE BY MOUTH EVERY MORNING AND TAKE ONE CAPSULE AT NOON AND TAKE ONE CAPSULE EVERY EVENING. TAKE BEFORE FOOD. active Not Available Not Available No t Available ipratropi um bromide 21 mcg (0.03 %) nasal spray 1-2 SPRAYS into EACH nostril DAILY active Not Available Not Available No t Available Cozaar 50 mg tablet take 1 tablet (50 mg) by oral route once daily 03/07 completed Cozaar 50 mg oral tablet;R ecorded Status: Recorded on: 02/05/20 09 8:41AM;D iscontin ued Status: Disconti nued on: 03/07/19 10 8:15AM;U ser: canarya; Indicati on: Hyperten ian - (07.4019 );Prin bev: 02/05/20 Not Available Not Available Not Available Tylenol Extra Strength 500 mg tablet take 2 tablets (1,000 mg) by oral route every 6 hours as needed 2008 active Tylenol Extra Strength 500 mg oral tablet;R ecorded Status: Recorded on: 11/13/19 09 2:11PM;U ser: shanice n;Indica tion: Headache Disorder - (7870 ) Not Available Not Available Not Available Ventolin HFA 90 mcg/actua tion aerosol inhaler inhale 1 - 2 puffs (90 - 180 mcg) by inhalati on route every 4-6 hours as needed 02/09 completed Ventolin HFA 90 mcg/actu ation inhalati on HFA aerosol inhaler; Prescrib e Status: Prescrib ed on: 03/27/19 16 10:49AM; User: demetrius; Pharmacy Verified : 03/27/19 16 10:49AM Not Available Not Available Not Available Bactrim DS 800 mg-160 mg tablet take 1 tablet by oral route 2 times per day for 3 days 09/13 completed Bactrim DS 800-160 mg oral tablet;R ecorded Status: Recorded on: 09/05/19 09 8:46AM;D iscontin ued Status: Disconti nued on: 09/14/19 09 8:17AM;U ser: demetrius; EstBrigitte Jorgei on: 09/08/19 09;Print ed: 09/05/19 09 Not Available Not Available Not Available Mucinex 600 mg tablet, extended release Take 1 tablet every 12 hours by oral route for 20 days. 05/14 completed Not Available Not Available Not Available Allergy Relief (loratadi ne) 10 mg tablet TAKE ONE TABLET BY MOUTH ONCE DAILY active Not Available Not Available No t Available Premarin 0.625 mg/gram vaginal cream 0.5gm intravag 2x weekly 11/18 completed Premarin 0.625 mg/gram vaginal cream;Re corded Status: Recorded on: 10/12/19 12 10:21AM; Disconti nued Status: Disconti nued on: 11/19/19 12 8:34AM;U ser: [email or web address];Es t. Completi on: 04/09/19 13;Indic ation: Atrophic Vaginiti s associat ed with [place]us e - (0005 );Prin bev: 10/12/19 12 Not Available Not Available Not Available cholestyr amine (with sugar) 4 gram oral powder 11/18 completed Not Available Not Available Not Available cholestyr amine (with sugar) 4 gram powder for susp in a packet MIX CONTENTS OF ONE POWDER PACKET WITH 6 OUNCES OF WATER. TAKE 2 HOURS SEPARATE FROM FOOD AND MEDICATI ONS 11/26 completed Not Available Not Available Not Available Crestor 10 mg tablet take 1 tablet (10 mg) by oral route once daily 12/17 completed Crestor 10 mg oral tablet;R ecorded Status: Recorded on: 12/12/19 09 9:12AM;D iscontin ued Status: Disconti nued on: 12/18/19 09 8:42AM;U ser: canarya; Indicati on: Mixed Hyperlip idemia - (895);Prin bev: 12/12/19 09 Not Available Not Available Not Available hydrocodo ne 7.5 mg-acetam inophen 325 mg/15 mL oral solution Take by oral route for 11 days. 02/09 completed Not Available Not Available Not Available Allergy Prescript ion Mix 1:20 Intraderm al Inject every week by intrader mal route. active Not Available Not Available No t Available nitrofura ntoin monohydra te/macroc rystals 100 mg capsule TAKE ONE CAPSULE BY MOUTH TWICE DAILY FOR 5 DAYS 12/31 completed Not Available Not Available Not Available Calcium 600 + D(3) 600 mg-5 mcg (200 unit) tablet TAKE 1 TABLET BY ORAL ROUTE 2 TIMES A DAY 12/07 completed Not Available Not Available Not Available Vitamin C 1qd active Not Available Not Isabel ilable Not Available vitamin K 1qd active Not Available Not Isabel ilable Not Available Vitamin B-12 1000 mcg 1qd active Not Available Not Available No t Available vitamin A 1qd active Not Available Not Isabel ilable Not Available calcium gummies 1qd 05/31 completed Not Available Not Available Not Available Colace 11/17 completed colace;R ecorded Status: Recorded on: 02/12/20 10 8:23AM;D iscontin ued Status: Disconti nued on: 11/18/19 11 10:43AM; User: tatiana; Indicati on: - (-5) Not Available Not Available Not Available loperamid e 01/15 completed loperamamilcar de;Recor ded Status: Recorded on: 05/11/19 14 8:30AM;D iscontin ued Status: Disconti nued on: 01/16/20 14 10:29AM; User: tatiana; Indicati on: - (-5) Not Available Not Available Not Available Nasonex 11/17 completed nasonex; Recorded Status: Recorded on: 11/08/19 09 8:29AM;D iscontin ued Status: Disconti nued on: 11/18/19 11 10:43AM; User: tatiana; Indicati on: - (-5) Not Available Not Available Not Available ibuprofen 11/17 completed ibuprofe n;Record ed Status: Recorded on: 09/24/19 11 8:18AM;D iscontin ued Status: Disconti nued on: 11/18/19 11 10:43AM; User: tatiana; Indicati on: - (-5) Not Available Not Available Not Available Evista 02/04 completed evista;R ecorded Status: Recorded on: 12/18/19 09 8:45AM;D iscontin ued Status: Disconti nued on: 02/05/20 09 8:24AM;U ser: [email or web address]; Indicati on: - (-5) Not Available Not Available Not Available Ativan 02/04 completed ativan;R ecorded Status: Recorded on: 02/05/20 09 8:24AM;D iscontin ued Status: Disconti nued on: 02/05/20 09 8:32AM;U ser: [email or web address]; Indicati on: - (-5) Not Available Not Available Not Available azelastin e 01/15 completed azelasti ne;Recor ded Status: Recorded on: 05/12/19 14 4:46PM;D iscontin ued Status: Disconti nued on: 01/16/20 14 10:29AM; User: tatiana; Tonyti on: - (-5) Not Available Not Available Not Available fluticaso ne propionat e 02/09 completed fluticas one;Andrzej rded Status: Recorded on: 05/12/19 14 4:46PM;U ser: [email or web address]; Indicati on: - (-5) Not Available Not Available Not Available Tums 02/09 completed tums;Rec orded Status: Recorded on: 02/12/20 10 8:23AM;U ser: [email or web address]; Indicati on: - (-5) Not Available Not Available Not Available Xanax 12/17 completed Xanax Oral;Rec orded Status: Recorded on: 09/05/19 09 8:26AM;D iscontin ued Status: Disconti nued on: 12/18/19 15 8:48AM;U ser: [email or web address] Not Available Not Available Not Available Cozaar 1 daily 07/03 completed cozaar 50 mg;Recor ded Status: Recorded on: 06/06/19 11 8:38AM;D iscontin ued Status: Disconti nued on: 07/04/19 11 8:38AM;U ser: canarya; Indicati on: - (-5);Malinda nted: 06/06/19 11 Not Available Not Available Not Available Zyrtec 03/28 completed zyrtec;R ecorded Status: Recorded on: 12/18/19 09 8:45AM;D iscontin ued Status: Disconti nued on: 03/28/19 10 8:35AM;U ser: [email or web address]; Indicati on: - (-5) Not Available Not Available Not Available benzonata te as directed 02/04 completed benzonat e 10mg;Rec orded Status: Recorded on: 12/18/19 09 6:08PM;D iscontin ued Status: Disconti nued on: 02/05/20 09 8:32AM;U ser: evansc;I ndicatio n: - (-5) Not Available Not Available Not Available Multi-Vit am 02/09 completed mvi;Andrzej rded Status: Recorded on: 04/13/19 12 8:39AM;U ser: [email or web address]; Indicati on: - (-5) Not Available Not Available Not Available Os-Treva 500 + D3 1 as directed twice a day 03/07 completed calcium with vit d 600mg;Re corded Status: Recorded on: 02/28/19 13 5:09PM;D iscontin ued Status: Disconti nued on: 03/07/19 13 12:09PM; User: canarya Not Available Not Available Not Available Miralax as directed 03/07 completed miralax; Recorded Status: Recorded on: 12/18/19 09 6:08PM;D iscontin ued Status: Disconti nued on: 03/07/19 10 8:16AM;U ser: evansc;I ndicatio n: - (-5) Not Available Not Available Not Available Protonix 02/09 completed protonix ;Recorde d Status: Recorded on: 09/16/19 13 1:09PM;U ser: [email or web address]; Indicati on: - (-5) Not Available Not Available Not Available multivita min 1qd 07/27 completed Not Available Not Available Not Available Nexium 09/15 completed nexium;R ecorded Status: Recorded on: 11/08/19 09 8:29AM;D iscontin ued Status: Disconti nued on: 09/16/19 13 1:09PM;U ser: [email or web address]; Indicati on: - (-5) Not Available Not Available Not Available Hydrocodo ne 10/29 completed hydrocod one;Andrzej rded Status: Recorded on: 05/29/19 16 8:13AM;D iscontin ued Status: Disconti nued on: 10/30/19 16 9:02AM;U ser: [email or web address]; Indicati on: - (-5) Not Available Not Available Not Available Crestor 1 daily 01/27 completed crestor 10 mg;Recor ded Status: Recorded on: 01/27/20 11 2:23PM;D iscontin ued Status: Disconti nued on: 01/28/20 11 12:22PM; User: tatiana; EstBrigitte Completi on: 01/27/20 11;Print ed: 01/27/20 11 Not Available Not Available Not Available Enablex 1qd 08/30 completed enablex 15mg;Rec orded Status: Recorded on: 10/05/19 09 8:14AM;D iscontin ued Status: Disconti nued on: 08/31/19 12 8:56AM;U ser: [email or web address]; Indicati on: - (-5) Not Available Not Available Not Available calcium 250 mg (as citrate) tablet Take 2 tablets every day by oral route as needed for 30 days. 03/06 completed Not Available Not Available Not Available [id number] 100 gram-sod sulf 7.5 gram-NaCl -KCl-asco rbate-C oral pwdr pack DIRECTED FOR COLONOSC OPY 05/31 completed Not Available Not Available Not Available Pataday 08/03 completed pataday; Recorded Status: Recorded on: 11/08/19 09 8:29AM;U ser: [email or web address]; Indicati on: - (-5) Not Available Not Available Not Available Reclast 5 mg/100 mL intraveno us piggyback one year infusion 2024 active Charged through pharmacy Not Available Not Available Not Available peg 3350-elec trolytes 236 gram-22.7 4 gram-6.74 gram-5.86 gram solution 09/14 completed Not Available Not Available Not Available peg 3350 240 gram-elec trolytes 22.72 gram-6.72 g-5.84 g powdr for soln 02/09 completed Not Available Not Available Not Available Veramyst 27.5 mcg/actua tion nasal spray,andrew pension spray 2 sprays (55 mcg) in each nostril by intranas al route once daily 11/17 completed Veramyst 27.5 mcg/actu ation nasal spray,canales spension ;Recorde d Status: Recorded on: 11/15/19 10 9:09AM;D iscontin ued Status: Disconti nued on: 11/18/19 11 10:43AM; User: favionesm;I ndicatio n: Allergic Rhinitis - () Not Available Not Available Not Available Calcium 600 + D(3) 600 mg-10 mcg (400 unit) tablet take 1 tablet by oral route BID 11/17 completed Calcium 600 + D(3) 600 mg(1,500 mg) -400 unit oral tablet;R ecorded Status: Recorded on: 11/15/19 10 9:32AM;D iscontin ued Status: Disconti nued on: 11/18/19 11 10:43AM; User: Nancy Galdamez on: 11/10/19 11;Print ed: 11/15/19 10 Not Available Not Available Not Available brimonidi ne 0.2 %-timolol 0.5 % eye drops INSTILL ONE DROP IN BOTH EYES TWICE DAILY active Not Available Not Available No t Available diclofena c 1 % topical gel APPLY TWO GRAMS TO AFFECTED AREA FOUR TIMES DAILY 2022 active Not Available Not Available Not Avai lable cholecalc iferol (vitamin D3) 50 mcg (2,000 unit) tablet TAKE ONE TABLET BY MOUTH EVERY DAY AT BEDTIME. SEPERATE FROM OTHER MEDICATI ONS BY AT LEAST 2 HOURS. active Not Available Not Available No t Available Astepro 205.5 mcg (0.15 %) nasal spray spray 2 sprays (411 mcg) in each nostril by intranas al route 2 times per day 09/15 completed Astepro 0.15 % (205.5 mcg) nasal spray,no n-aeroso l;Record ed Status: Recorded on: 11/15/19 10 9:09AM;D iscontin ued Status: Disconti nued on: 09/16/19 13 1:09PM;U ser: [email or web address];I ndicatio n: Allergic Rhinitis - (08.4779 00) Not Available Not Available Not Available Vitamin D3 25 mcg (1,000 unit) chewable tablet chew 1 tablet by oral route daily for 30 days 10/11 completed Vitamin D3 1,000 unit oral tablet,onelia loza; Recorded Status: Recorded on: 12/23/19 11 11:41AM; Disconti nued Status: Disconti nued on: 10/12/19 12 9:55AM;U ser: [email or web address];E st. Completi on: 06/20/19 12;Print ed: 12/23/19 11 Not Available Not Available Not Available Mucosa DM 20 mg-400 mg tablet Take 1 tablet every 8 hours by oral route as needed. 06/02 completed Not Available Not Available Not Available Xifaxan 550 mg tablet TAKE ONE TABLET BY MOUTH THREE TIMES DAILY FOR FOURTEEN DAYS 05/31 completed Not Available Not Available Not Available Vitamin D3 50 mcg (2,000 unit) capsule 1 capsule by mouth once daily at bedtime x 30 days. Separate from other medicati ons by at least 2 hours. 02/25 completed Not Available Not Available Not Available Myrbetriq 25 mg tablet,ex tended release TAKE ONE TABLET BY MOUTH DAILY, SWALLOW WHOLE; DO NOT CHEW/SAURAV AK/DISSO LVE/OPEN active Not Available Not Available No t Available Citrucel 11/12 completed citrucel ;Recorde d Status: Recorded on: 11/08/19 09 8:29AM;D iscontin ued Status: Disconti nued on: 11/13/19 09 2:11PM;U ser: [email or web address]; Indicati on: - (-5) Not Available Not Available Not Available Tussin DM Max 5 mg-100 mg/5 mL oral liquid TAKE 1-2TSP EVERY 6 HOURS NEEDED active Not Available Not Available No t Available Ubrelvy 100 mg tablet TAKE ONE TABLET ONCE NEEDED FOR MIGRAINE as a single DOSE MAY REPEAT ONCE in TWO HOURS AFTER first DOSE IF needed 05/31 completed Not Available Not Available Not Available Nurtec ODT 75 mg disintegr ating tablet TAKE ONE TABLET BY MOUTH DAILY active Not Available Not Available No t Available Multivita min Gummies 1qd active Not Available Not Available Not Available Vitals Date Recorded Body height Body mass index (BMI) Body weight Heart rate Oxygen saturation Oxygen saturation in Arterial blood by Pulse oximetry Respiratory rate Systolic And Diastolic Provider Name and Address Organization Details Last Updated DateTime 5 155.58 cm 27.9 kg/m2 70457.9 6 g 82 /min 99 % 99 % 16 /min 141/83 mm[Hg] Dianna Padgett MD [address], [place], [address], [facility] 5 11:14:52 Date Recorded Systolic And Diastolic Provider Name and Address Organization Details Last Updated DateTime 05/31/2024 138/75 mm[Hg] Kiley Morel PA-C [address], [place], [address], [facility] 05/31/2024 08:39:44 Date Recorded Body height Body mass index (BMI) Body weight Body temperature Oxygen saturation Oxygen saturation in Arterial blood by Pulse oximetry Respiratory rate Heart rate Systolic And Diastolic Provider Name and Address Organization Details Last Updated DateTime 5 155.58 cm 27.9 kg/m2 03742.2 6 g 98 [degF] 99 % 99 % 20 /min 66 /min 145/73 mm[Hg] Abimbola [place] [facility] 5 08:05:25 Date Recorded Body height Body temperature Heart rate Oxygen saturation Oxygen saturation in Arterial blood by Pulse oximetry Respiratory rate Systolic And Diastolic Provider Name and Address Organization Details Last Updated DateTime 5 155.58 cm 97.6 [degF] 66 /min 98 % 98 % 18 /min 117/73 mm[Hg] Infusion Nurse [facility] [address], [place], [address], [facility] 5 09:46:11 Date Recorded Body height Body mass index (BMI) Body weight Body temperature Respiratory rate Oxygen saturation Oxygen saturation in Arterial blood by Pulse oximetry Heart rate Systolic And Diastolic Provider Name and Address Organization Details Last Updated DateTime 4 155.58 cm 27.4 kg/m2 18271.4 9 g 97.3 [degF] 16 /min 98 % 98 % 68 /min 139/71 mm[Hg] Abimbola [place] - [facility] 4 08:20:07 Date Recorded Body height Body mass index (BMI) Body weight Systolic And Diastolic Provider Name and Address Organization Details Last Updated DateTime 01/03/2024 155.58 cm 27.4 kg/m2 77779.49 g 122/78 mm[Hg] Emelia Chen [place] - [facility] 01/03/2024 08:59:15 Social History Question Answer Notes LastModified by Organizat ion Details LastModified Time Tobacco Smoking Status Never Smoker Mayte adrian [place] - [facility] 02/10/2016 08:31:42 Able To Swim? No [email or web address] Information not available 08/05/2016 Do You Have An Advance Directive? No [email or web address] Information not available 08/05/2016 Do You Wear A Helmet When Biking? No [email or web address] Information not available 08/05/2016 Are You Blind Or Do You Have Difficulty Seeing? No Information not available 11/19/2020 Is Blood Transfusion Acceptable In An Emergency? Yes [email or web address] Information not available 12/31/2017 What Is Your Level Of Caffeine Consumption? Occasional [email or web address] Information not available 08/05/2016 How Much Tobacco Do You Chew? None [email or web address] Information not available 08/05/2016 In The 14 Days Before Symptom Onset, Have You Had Close Contact With A Laboratory-confir med COVID-19 While That Case Was Ill? No Information not available 11/19/2020 In The 14 Days Before Symptom Onset, Have You Had Close Contact With A Person Who Is Under Investigation For COVID-19 While That Person Was Ill? No Information not available 11/19/2020 Have You Been To An Area Known To Be High Risk For COVID-19? No Information not available 11/19/2020 Are You Deaf Or Do You Have Serious Difficulty Hearing? No Information not available 11/19/2020 What Type Of Diet Are You Following? REGULAR [email or web address] Information not available 08/05/2016 Which Illicit Or Recreational Drugs Have You Used? Tess [email or web address] Information not available 02/10/2016 Have You Processed Blood Or Body Fluids From An Ebola Virus Disease Patient Without Appropriate PPE? No Information not available 11/19/2020 Do You Reside In Or Have You Traveled To An Area Where Ebola Virus Transmission Is Active? No Information not available 11/19/2020 What Is The Highest Grade Or Level Of School You Have Completed Or The Highest Degree You Have Received? [id number] [email or web address] Information not available 12/31/2022 Swimming/diving No [email or web address] Informati on not available 08/05/2016 Have There Been Any Changes To Your Family Or Social Situation? No Information no t available 11/19/2020 What Is The Fluoride Status Of Your Home? Fluoridated [email or web address] Information not available 12/31/2022 Hard Of Hearing Or Deaf In One Or Both Ears? No [email or web address] Information not available 08/05/2016 Have You Recently Or Are You Planning To Travel To An Area With Zika Virus? No Information not available 11/19/2020 Legally Blind In One Or Both Eyes? No [email or web address] Information no t available 08/05/2016 Live Alone Or With Others? Alone [email or web address] Information not available 08/05/2016 Last Menstrual Period? 02/23/2004 Information not available 12/07/2016 Do You Have A Medical Power Of Track Hoe Operator? No Information not available 11/05/2020 What Was The Date Of Your Most Recent Tobacco Screening? 05/31/2024 Information not available 05/31/2024 How Many Children Do You Have? 2 [email or web address] Information not available 08/05/2016 Performs Monthly Self-breast Exam? No Information no t available 12/07/2016 Do You Use Protection During Sex? No Information not available 08/05/2016 What Is Your Relationship Status? Information not available 02/10/2016 Seat Belts Used Routinely Yes Information not available 08/05/2016 Are You Sexually Active? No [email or web address] Information not available 08/05/2016 Smoke Alarm In Home Yes [email or web address] Information not available 08/05/2016 Do You Have Smoke And Carbon Monoxide Detectors In Your Home? Yes Information not available 11/19/2020 Are You Passively Exposed To Smoke? No Information no t available 05/14/2020 General Stress Level Medium [email or web address] Information not available 08/05/2016 Do You Use Sunscreen Routinely? No [email or web address] Information not available 08/05/2016 Has Tobacco Cessation Counseling Been Provided? No Information not available 05/31/2024 Do You Have Difficulty Walking Or Climbing Stairs? No Information not available 11/19/2020 What Contraceptive Method Was Reported At Start Of This Visit? None [email or web address] Information not available 12/31/2022 What Contraceptive Method Was Reported At End Of This Visit? None [email or web address] Information not available 12/31/2022 Do You Want To Talk About Contraception Or Prevention During Your Visit Today? No - I Do Not Want To Talk About Contraception Today Because I Am Here For Something Else [email or web address] Information not available 12/31/2022 Do You Have Any Future Plans To Get ? No, I Don't Want To Become [email or web address] Information not available 12/31/2022 What Is Your Reason For Having No Contraceptive Method At Start Of This Visit? Other [email or web address] Information not available 12/31/2022 What Is Your Reason For Having No Contraceptive Method At End Of This Visit? Other [email or web address] Information not available 12/31/2022 Sex: Female Functional Status Question Answer Note LastModified by [employer] ion Details LastModified Time Are you currently employed? No Information not available 02/10/2016 Do you have transportation difficulties? No Information not available 11/19/2020 Urinary incontinence assessment performed? Yes Information not available 12/07/2016 Are you able to care for yourself? Yes Information n ot available 02/10/2016 Do you have difficulty dressing or bathing? No Information not available 11/19/2020 What is your exercise level? Moderate Information not available 08/05/2016 Do you use any illicit or recreational drugs? No Information not available 11/19/2020 Do you or have you ever used any other forms of tobacco or nicotine? No Information not available 11/19/2020 What is your level of alcohol consumption? None Information not available 02/10/2016 What is your status? Not [email or web address] Information no t available 12/31/2022 Are you able to walk? YESWOREST [email or web address] Information not available 08/05/2016 Do you have difficulty doing errands alone? No Information not available 11/19/2020 What is your occupation? [employer] [email or web address] Information not available 08/05/2016 Mental Status Question Answer Note LastModified by Organizat ion Details LastModified Time Do you feel stressed (tense, restless, nervous, or anxious, or unable to sleep at night)? [id number] Information not available 11/19/2020 Do you have difficulty concentrating, remembering or making decisions? No Information no t available 11/19/2020 Family History Relationship Description Onset Age of this Age Resolved Age Notes LastModified by Organization Details LastModified Time Mother Heart disease Not available 2015 08:31:14 Mother Alzheimer's disease Not available 2015 08:31:22 Mother Chronic obstructive pulmonary disease Not available 2015 08:31:31 Medical History Condition Response Anxiety Disorder Y Acid Reflux (GERD) Y Hyperlipidemia Y Gallstones Y Hypertension Y Kidney Disease Y Gynecological History Statement/Question Response Abnormal Pap N Date of Last Mammogram 07/13/2024 On BCP's at Conception? N Post Menopausal Bleeding N STIs/STDs N HPV Vaccine N Current Control Method Menopause Age at Menarche 10 Age at First Child 24 Last Annual Exam/Provider 12-31-22 Last Lipids If Post Menopausal, Age at Menopause 49 Date of Last Colonoscopy 01/05/2024 Most Recent Bone Density 03/05/2023 Sexually Active? N Menses Monthly N Date of Last Pap Smear 12/31/2022 Sexual Problems? N LMP Unknown Desired Control Method None Hormone Replacement Therapy N Obstetrics History GPAL:G 2 P 2 0 0 1 Type Value Multiple Births 0 Full Term 2 Induced 0 Spontaneous 0 Premature 0 Living 1 Ectopics 0 Total 2 Immunizations Vaccine Type Date Status Note Provider Nam e and Address Organization Details Recorded Time Influenza, high-dose, quadrivalent, PF 020 completed [place] [facility] 11/27/2019 13:27:30 pneumococcal polysaccharide PPV23 cancelled patient objection Dianelys Petty [place] [facility] 08/30/2020 16:50:48 Influenza, high-dose, quadrivalent, PF 021 completed Karlee Lockhart [place] [facility] 12/24/2020 09:01:45 Influenza, split virus, quadrivalent, preservative 017 completed Not Available [facility] 03/11/2019 03:54:41 Pneumococcal conjugate PCV 13 017 completed Not Available [facility] 03/11/2019 03:54:41 influenza, unspecified formulation 014 completed Anna Garcia, ENGINE MECH[employer]IC [address], [place], [address], [place] [facility] 01/04/2024 06:15:06 influenza, unspecified formulation 015 completed Anna Garcia, ENGINE MECHANIC [address], [place], [address], [place] [facility] 01/04/2024 06:15:06 Tdap 012 completed Not Available [facility] 03/25/2019 02:21:42 Tdap 015 completed Not Available [facility] 03/25/2019 02:21:42 zoster live 015 completed Anna Garcia, ENGINE MECHANIC [address], [place], [address], [place] [facility] 12/31/2022 09:45:59 influenza, unspecified formulation 009 completed Anna Garcia, ENGINE MECHANIC [address], [place], [address], [place] [facility] 01/04/2024 06:15:06 influenza, unspecified formulation 010 completed Anna Garcia, ENGINE MECHANIC [address], [place], [address], [place] [facility] 01/04/2024 06:15:06 influenza, unspecified formulation 011 completed Anna Garcia, ENGINE MECHANIC [address], [place], [address], [place] [facility] 01/04/2024 06:15:06 influenza, unspecified formulation 012 completed Anna Garcia, ENGINE MECHANIC [address], [place], [address], [place] [facility] 01/04/2024 06:15:06 influenza, unspecified formulation 013 completed Anna Garcia, ENGINE MECHANIC [address], [place], [address], [place] [facility] 01/04/2024 06:15:06 Pneumococcal conjugate PCV20, polysaccharide [id number] conjugate, adjuvant, PF 022 completed Abimbola Fairbanks null, [place] - [facility] 11/10/2021 12:09:07 COVID-19, mRNA, LNP-S, bivalent, PF, 50 mcg/0.5 mL or 25mcg/0.25 mL dose 022 completed Ryann Miguel null, [place] - [facility] 11/25/2021 17:01:43 Influenza, high-dose, quadrivalent, PF 022 completed Karlee Lockhart null, [place] - [facility] 12/29/2021 09:09:35 Influenza, high-dose, quadrivalent, PF 023 completed Dianna Padgett MD [address], [place], [address], [place] [facility] 12/01/2022 17:06:25 Hep A, adult 018 completed Not Available [facility] 03/11/2019 03:55:00 Influenza, high-dose, trivalent, PF 024 completed Dianna Padgett MD [address], [place], [address], [place] [facility] 11/30/2023 16:41:54 Influenza, split virus, quadrivalent, preservative 018 completed Not Available [facility] 03/11/2019 03:55:14 pneumococcal polysaccharide PPV23 018 completed Not Available [facility] 03/11/2019 03:55:27 Hep A, adult 018 completed Not Available [facility] 03/11/2019 03:55:24 COVID-19, mRNA, LNP-S, PF, 100 mcg/0.5mL dose or 50 mcg/0.25mL dose 021 completed Cira Velazco null, [place] - [facility] 10/31/2020 09:17:08 COVID-19, mRNA, LNP-S, PF, 100 mcg/0.5mL dose or 50 mcg/0.25mL dose 021 completed Cira Velazco null, [place] - [facility] 10/31/2020 09:17:37 Influenza, split virus, quadrivalent, preservative 016 completed Zo Ivana null, [place] - [facility] 04/14/2022 09:50:33 pneumococcal polysaccharide PPV23 011 completed Zo Iv[place] [facility] 04/14/2022 09:50:33 Pneumococcal conjugate PCV 13 016 completed Zo Iv[place] [facility] 04/14/2022 09:50:33 Td (adult), 2 Lf tetanus toxoid, preservative free, adsorbed 002 completed Zo Iv[place] [facility] 04/14/2022 09:50:33 Influenza, split virus, quadrivalent, preservative 019 completed Not Available [facility] 03/11/2019 03:56:04 zoster recombinant 024 completed Honey [place] [facility] 06/01/2023 11:30:51 zoster recombinant 024 completed Honey [facility] [place] [facility] 08/03/2023 09:15:05 Past Encounters Encounter ID Performer Location Encounter Start Date Encounter Closed Date Diagnosis/Indication Diagnosis SNOMED-CT Code Diagnosis ICD10 Code Diagnosis Note [id number] Nehal Harley APRN [facility] [address] [place] [address] 02/10/2016 08:09:05 02/10/2016 09:18:19 Diarrhea 26910214 R19.7 [id number] Kiley Morel PA-C [facility] [address] [place] [address] 03/26/2016 08:47:56 03/26/2016 11:46:00 Acute sinusitis 30575171 J01.90 [id number] Kiley Morel PA-C [facility] [address] [place] [address] 04/08/2016 09:15:33 04/08/2016 11:17:24 Acute sinusitis 25172187 J01.90 Diarrhea 48389018 R19.7 [id number] Dianelys Petty MD [facility] [address] [place] [address] 05/18/2016 16:58:36 05/18/2016 18:15:39 Anxiety 51354430 F41.9 Hyperlipidemia 51847997 E78.5 Essential hypertension 85681482 I10 [id number] Kiley Morel PA-C [facility] [address] [place] [address] 08/03/2016 10:58:59 08/03/2016 11:35:35 Tick bite 64574623 S70.361A [id number] Dianelys Petty MD [facility] [address] [place] [address] 08/05/2016 08:02:57 08/05/2016 09:14:47 Anxiety 52729393 F41.9 Nausea 558816468 R11.0 Headache 69570428 R51 Visual disturbance 68730 001 H53.9 [id number] Kiley Morel PA-C [facility] [address] [place] [address] 08/17/2016 08:04:59 08/17/2016 10:16:14 Mixed hyperlipidemia 558545025 E78.2 Essential hypertension 25208579 I10 Infection of tick bite 122459732 B99.9 resolved Viral screening 67058649 4 Z11.59 [id number] Kiley Morel PA-C [facility] [address] [place] [address] 10/21/2016 08:27:52 10/21/2016 10:11:34 Acute sinusitis 02546113 J01.90 [id number] Kiley Morel PA-C [facility] [address] [address] 11/18/2016 07:54:10 11/18/2016 09:40:27 Renewal of prescription 351761539 Z76.0 Acute sinusitis 15051513 J01.90 [id number] María Elena Masters APRN [facility] [address] [place] [address] 12/07/2016 08:36:33 12/07/2016 09:33:27 Routine gynecologic examination done 8560106235 9101 Z01.419 Depression screening 171 140972 Z13.89 PHQ-9 completed today. negative Diet education 34124561 Z71.3 counseled on diet and exercise Counseling 991235604 Z71 .9 Exercise counseljosephine lancaster Patient encouraged to exercise 30 minutes 5 days a week. Examinatio n of blood pressure 269550766 Z01.31 continue b/p medication s and keep apt with provider Body mass index 25-29 - overweight 067107238 Z68.27 Active or passive immunization 869730340 Z23 Polyp at cervical os 248 024951 N84.1 Pain in pelvis 90511980 R10.2 Screening mammography 24 510469 Z12.31 Postmenopausal state 764 68491 Z78.0 osetopenia Osteopenia 618373888 M85 .9 [id number] Dianelys Petty MD [facility] [address] [place] [address] 12/14/2016 07:59:47 12/14/2016 09:08:12 Anxiety 80460522 F41.9 Upper resp iratory infection 50283979 J06.9 [id number] Kiley Morel PA-C [facility] [address] [address] 12/17/2016 08:49:05 12/17/2016 10:09:27 Pain of hip region 05043004 M25.448 [id number] Kiley Morel PA-C [facility] [address] [address] 02/17/2017 08:22:06 02/17/2017 09:18:54 Essential hypertension 72017989 I10 Mixed hyperlipidemia 267 798242 E78.2 [id number] Nehal Harley APRN [facility] [address] [address] 02/23/2017 08:14:38 02/23/2017 09:46:06 Vitamin D deficiency 11790865 E55.9 Acute bronchitis 2533275 2 J20.9 Fatigue 58579520 R53.83 [id number] Kiley Morel PA-C [facility] [address] [address] 06/02/2017 07:44:05 06/02/2017 09:13:07 General examination of patient 581939439 Z00.00 Essential hypertension 39956096 I10 Mixed hyperlipidemia 267 996050 E78.2 Candidiasis of skin 4988 3006 B37.2 Upper resp iratory infection 10061998 J06.9 [id number] Dianelys Petty MD [facility] [address] [place] [address] 06/14/2017 08:11:20 06/14/2017 09:37:43 Hyperlipidemia 69477708 E78.5 Essential hypertension 25096484 I10 Anxiety 71705977 F41.9 Body mass index 25-29 - overweight 098754595 Z68.28 Acute bronchitis 1319933 2 J20.9 Long-term current use of drug therapy 854049596 Z79.824 [id number] Kiley Morel PA-C [facility] [address] [place] [address] 07/13/2017 08:03:53 07/13/2017 08:57:04 Active or passive immunization 116434642 Z23 [id number] Kiley Morel PA-C [facility] [address] [place] [address] 09/06/2017 07:54:29 09/06/2017 08:56:19 Mixed hyperlipidemia 847775791 E78.2 [id number] Dianelys Petty MD [facility] [address] [address] 09/15/2017 08:51:52 09/15/2017 10:08:45 Anxiety 52592113 F41.9 Acute low back pain 2788 46071 M54.5 [id number] María Elena Masters APRN [facility] [place] [address] [place] [address] 12/15/2017 13:05:07 12/15/2017 15:48:04 Routine gynecologic examination done 9848193914 9101 Z01.419 Depression screening 171 710734 Z13.89 PHQ-9 completed today. negative screen Diet education 08161762 Z71.3 counseled on diet and exercise Counseling 237131305 Z71 .82 Exercise counseljosephine lancaster Patient encouraged to exercise 30 minutes 5 days a week. Examinatio n of blood pressure 382348707 Z01.30 continue b/p medication s and keep apt with provider Administra tion of influenza vaccine 77836813 Z23 Screening mammography 24 042450 Z12.31 Administra tion of pneumococcal vaccine 28196368 Z23 Blood in urine 93094236 R31.9 Endometrium thickened 44 3541456 N85.00 Polyp at cervical os 248 634586 N84.1 [id number] Dianelys Petty MD [facility] [address] [address] 12/31/2017 10:16:39 12/31/2017 11:41:14 Anxiety 93540870 F41.9 Long-term drug therapy 097602562 Z79.899 Acute sinusitis 88539481 J01.90 [id number] Kiley Morel PA-C [facility] [address] [address] 01/17/2018 07:56:11 01/17/2018 10:15:53 Active or passive immunization 721692779 Z23 [id number] Tia Gonzalez MD [facility] [address] [place] [address] [place] [address] 01/18/2018 14:17:19 01/18/2018 16:09:48 Endometrium thickened 311548225 N85.00 Polyp of cervix 14022679 N84.1 [id number] Kiley Morel PA-C [facility] [address] [address] 03/03/2018 07:46:21 03/03/2018 09:08:33 Acute sinusitis 93361928 J01.90 Vomiting 377057148 R11.1 0 resolved Diarrhea 60315818 R19.7 resolved Ingrowing toenail 852302 009 L60.0 [id number] Dianelys Petty MD [facility] [address] [address] 03/30/2018 07:59:08 03/30/2018 09:13:49 Hyperlipidemia 01991085 E78.5 Anxiety 84841188 F41.9 Essential hypertension 17089709 I10 Acute bronchitis 3837815 2 J20.9 [id number] Dianelys Petty MD [facility] [address] [address] 04/15/2018 08:03:36 04/15/2018 09:57:24 Essential hypertension 13298632 I10 Influenza- like symptoms 951089442 R68.89 Pain in throat 732845480 R07.0 Dizziness 979065980 R42 Acute sinusitis 03530850 J01.90 [id number] Dianelys Petty MD [facility] [address] 7 06/06/2018 07:49:50 06/06/2018 09:07:03 Anxiety 21789842 F41.9 Gastroesop hageal reflux disease 903759590 K21.9 Diarrhea 13467293 R19.7 Candidiasis of skin 4988 3006 B37.2 Long-term drug therapy 019562456 Z79.008 [id number] Kiley Morel PA-C [facility] [address] [place] [address] 07/27/2018 07:52:03 07/27/2018 09:20:42 Hyperlipidemia 99944120 E78.2 Essential hypertension 48061973 I10 Gastroesop hageal reflux disease without esophagitis 890517644 K21.9 tx by [facility] [id number] Dianelys Petty MD [facility] [address] [address] 08/04/2018 11:37:43 08/04/2018 16:07:48 Anxiety 44542015 F41.9 [id number] Dianelys Petty MD [facility] [address] [address] 09/14/2018 08:10:40 09/14/2018 09:45:10 Anxiety 48557860 F41.9 Fatigue 56046422 R53.83 [id number] Dianelys Petty MD [facility] [address] [place] [address] 11/30/2018 08:35:25 11/30/2018 09:20:45 Anxiety 23543979 F41.9 Administra tion of influenza vaccine 65929693 Z23 Essential hypertension 96660384 I10 Candidiasis of skin 4988 3006 B37.2 [id number] María Elena Masters APRN [facility] [address] [place] [address] [address] 12/19/2018 08:08:49 12/19/2018 09:08:38 Screening for malignant neoplasm of cervix 973234749 Z12.4 Routine gy necologic examination done 1917868580 9101 Z01.419 Depression screening 171 151588 Z13.89 PHQ-9 completed today. negative Diet education 85637130 Z71.3 counseled on diet and exercise Counseling 201608150 Z71 .82 Exercise counseljosephine zaidi. Patient encouraged to exercise 30 minutes 5 days a week. Examinatio n of blood pressure 176716293 Z01.30 124/70 Vaccine de clined by patient 8516883793 02 Z28.21 Pt declined flu vaccine today. Body mass index 25-29 - overweight 637676625 Z68.27 Screening mammography 24 676695 Z12.31 Osteoporosis 53410512 M8 1.0 [id number] Kiley Morel PA-C [facility] [address] 7 02/13/2019 09:45:08 02/13/2019 10:26:35 Nausea and vomiting 60514934 R11.2 Diarrhea 44610177 R19.7 resolved [id number] Dianelys Petty MD [facility] [address] [place] [address] 03/06/2019 07:50:53 03/06/2019 08:55:46 Anxiety 90790598 F41.9 Nausea and vomiting 1693 2000 R11.2 Long-term drug therapy 624599699 Z79.899 Ingrowing great toenail 029495844 L60.0 [id number] Kiley Morel PA-C [facility] [address] [place] [address] 06/12/2019 08:37:29 06/12/2019 11:03:03 Cough 70035048 R05 Acute bronchitis 4949509 2 J20.9 Upper resp iratory infection 77098209 J06.9 Chest pain 60981613 R07. 9 [id number] Dianelys Petty MD [facility] [address] [place] [address] 08/30/2019 07:56:32 08/30/2019 09:28:23 Gastroesophageal reflux disease 545057595 K21.9 Hyperlipidemia 86158579 E78.5 Anxiety 20092899 F41.9 Seasonal allergy 8773935 04 J30.2 Acute pharyngitis 676235 003 J02.9 [id number] Kiley Morel PA-C [facility] [address] [place] [address] 09/25/2019 08:32:29 09/25/2019 09:51:28 Essential hypertension 87380173 I10 Hyperlipidemia 16367129 E78.2 Seasonal allergy 5110697 04 J30.2 Candidiasis of skin 4988 3006 B37.2 Low back pain 856373795 M54.5 [id number] Kiley Morel PA-C [facility] [address] [place] [address] 11/09/2019 08:34:33 11/09/2019 09:36:02 Pain of left hip joint 3540049210 59583 M25.552 Ankle pain 189172613 M25 .579 Upper resp iratory infection 53894052 J06.9 [id number] Dianelys Petty MD [facility] [address] [place] [address] 11/27/2019 10:02:54 11/27/2019 10:58:02 Anxiety 89787884 F41.9 Administra tion of influenza vaccine 54945013 Z23 Vitamin D deficiency 347 63164 E55.9 [id number] María Elena Masters APRN [facility] [place] [place] [address] [address] 12/25/2019 08:16:06 12/25/2019 09:40:56 Routine gynecologic examination done 0049695534 9101 Z01.419 Depression screening 171 883084 Z13.89 PHQ-9 completed today. negative on medication Diet education 19203898 Z71.3 counseled on diet and exercise Increase water intake to 60 oz daily Counseling 614555331 Z71 .82 Exercise counseljosephine lancaster Patient encouraged to exercise 30 minutes 5 days a week. Examinatio n of blood pressure 184863525 Z01.30 120/62 Screening mammography 24 543962 Z12.31 Body mass index 25-29 - overweight 896980883 Z68.27 Dysuria 58189103 R30.[address] ess incontinence 28929106 N39.3 Vaginal pain 55125008 R1 0.2 At low risk for fall 439 176957 Z91.81 [id number] Dianelys Petty MD [facility] [address] [address] 02/26/2020 07:51:33 02/26/2020 09:14:20 Anxiety 82545839 F41.9 Long-term drug therapy 310805465 Z79.899 Body mass index 25-29 - overweight 665630080 Z68.27 Acute bronchitis 1019671 2 J20.9 [id number] Kiley Morel PA-C [facility] [address] [address] 04/18/2020 14:41:37 04/18/2020 15:33:59 Viral screening 912299553 Z11.59 Acute sinusitis 85084650 J01.90 [id number] Kiley Morel PA-C [facility] [address] [address] 05/14/2020 07:52:05 05/14/2020 08:52:11 Adult health examination 483444047 Z00.00 Depression screening 171 929546 Z13.89 Examinatio n of blood pressure 809869924 Z01.30 Diet education 34750074 Z71.3 Counseling 882497806 Z71 .82 Exercise counseling . Patient encouraged to exercise 30 minutes 5 days a week. [facility] for falls 899383820 Z91.81 STEADI FAST screening score of . Body mass index 25-29 - overweight 472667615 Z68.27 Gastroesop hageal reflux disease 902742510 K21.9 sees [facility]- [facility] Essential hypertension 90993245 I10 stable Hyperlipidemia 06129986 E78.2 stable Anxiety 01174633 F41.9 stable [id number] Dianna Padgett MD [facility] [address] [address] 05/21/2020 10:02:23 05/21/2020 11:00:17 Pigmented skin lesion of uncertain nature 795137080 L81.9 Rt. upper abdomen under her Right breast [id number] Ryann Miguel APRN [facility] [address] [address] 05/31/2020 08:14:25 05/31/2020 09:03:25 Removal of suture 24407948 Z48.02 keep area c/d/i, ok to apply ointments if needed now; RTC for any s/s of infection. F/u with pcp as scheduled. [id number] Dianelys Petty MD [facility] [address] [place] [address] 06/05/2020 07:55:29 06/05/2020 08:38:44 Anxiety 81053275 F41.9 Long-term drug therapy 176389825 Z79.598 [id number] Dianna Padgett MD [facility] [address] [place] [address] 06/18/2020 11:37:48 06/18/2020 13:48:50 Multiple skin tags on neck 516725472 L91.8 [id number] Dianelys Petty MD [facility] [address] [place] [address] 08/30/2020 15:41:52 08/30/2020 16:58:05 Essential hypertension 08389257 I10 Anxiety 20503758 F41.9 HIV screening 925489381 Z11.4 Administra tion of pneumococcal vaccine 62327607 Z23 Seasonal allergy 4014199 04 J30.2 Fatigue 08519275 R53.83 Dysuria 88312452 R30.9 [id number] Kiley Morel PA-C [facility] [address] [place] [address] 10/29/2020 08:34:55 10/29/2020 09:15:37 Viral screening 037064639 Z11.59 Acute sinusitis 54807351 J01.90 [id number] Dianelys Petty MD [facility] [address] [place] [address] 10/31/2020 08:37:05 10/31/2020 09:44:36 Gastroesophageal reflux disease 678466015 K21.9 Anxiety 96589945 F41.9 Essential hypertension 25867759 I10 [id number] Kiley Morel PA-C [facility] [address] [place] [address] 11/05/2020 07:52:51 11/05/2020 09:22:33 Essential hypertension 15358994 I10 stable Hyperlipidemia 04851280 E78.2 stable Gastroesop hageal reflux disease 666723099 K21.9 [facility] Vitamin D deficiency 347 97311 E55.9 Body mass index 25-29 - overweight 286647613 Z68.27 Dysuria 04131038 R30.9 Microscopic hematuria [address] [place] [id number] Beverley Bahena [facility] [address] [place] [address] 11/19/2020 08:22:28 11/19/2020 10:04:26 Hypokalemia 71613911 E87.6 Will notify PCP of results. [id number] María Elena Masters [facility] [address] [place] [address] 7 12/24/2020 08:13:42 12/24/2020 09:11:13 Routine gynecologic examination done 9629008076 9101 Z01.419 Depression screening 171 529552 Z13.89 PHQ-9 completed today. Diet education 01119798 Z71.3 counseled on diet and exercise Increase water intake to 60 oz daily Counseling 646974483 Z71 .82 Exercise counsellin dyan. Patient encouraged to exercise 30 minutes 5 days a week. Body mass index 25-29 - overweight 165849092 Z68.27 BMI 26.5 Hypertensi on screening 937656599 Z13.6 118/80(on medication ) Administra tion of influenza vaccine 77095869 Z23 Screening mammography 24 694783 Z12.31 Menopausal syndrome 1237 80171 N95.9 At [facility] ed risk for falls 887791557 Z91.89 STEADI FAST screening score of ___0__. Female str ess incontinence 45627804 N39.3 mild [id number] Dianna Padgett MD [facility] [address] [place] [address] [place] [address] 03/04/2021 13:29:16 03/04/2021 14:05:43 Anxiety 19449736 F41.9 Long-term current use of drug therapy 597658423 Z79.647 [id number] Ryann Miguel APRN [facility] [address] [place] [address] [place] [address] 03/31/2021 08:21:09 03/31/2021 09:16:10 Esophageal dysmotility 256659536 K22.4 Diet education 82111627 Z71.3 [id number] Kiley Morel PA-C [facility] [address] [place] [address] 05/05/2021 08:06:08 05/05/2021 10:31:42 Hyperlipidemia 55938907 E78.2 stable Viral screening 31467240 4 Z11.59 Acute sinusitis 48262073 J01.90 [id number] Kiley Morel PA-C [facility] [address] [place] [address] [place] [address] 05/12/2021 08:04:23 05/12/2021 09:13:50 Essential hypertension 76914342 I10 stable Hyperlipidemia 12433017 E78.2 stable Body mass index 25-29 - overweight 284570728 Z68.27 Anxiety 06657897 F41.9 stable Gastroesop hageal reflux disease 685065315 K21.9 sees GI- [place] [id number] Dianna Padgett MD [facility] [address] [place] [address] [place] [address] 05/27/2021 09:55:58 05/27/2021 11:04:38 Anxiety 10775114 F41.9 [id number] Kiley Morel PA-C [facility] [address] [address] 06/11/2021 07:58:59 06/11/2021 08:41:50 Acute sinusitis 79332663 J01.90 [id number] MD Glen Hernandez MEDICAL REPRESENTATIVE 7 [facility] [place] [address] 06/12/2021 14:45:15 06/12/2021 16:40:14 Osteoporosis 58863777 M81.0 Has met criteria for that label as of 02 11-T equals -2.5 left femoral neck, although previously only had readings of osteopenia .. Gradual reduction in T score from -2.0 to -2.1 noted over 4-year interval despite oral bisphospho andres although of note different facility between these scores. Had been started 2017 on oral bisphospho andres for unclear indication s (notes were that she had osteoporo sis which records showed were only osteopenia with FRAX scores below normal threshold (20%/3%)fo r initiating treatment) she had been tolerating FOSAMAX by her descriptio n without GI changes since 01 08 but admits has always had stomach problems . Current GI note 2 28 reviewed although even then not clear that they advise change of meds yet but patient was under the impression I did. Do not see that she has had the follow-up GI studies that were advised. Has not had an osteoporot ic fracture but did have a high impact left wrist fracture as an adult and family history of hip fracture and spinal kyphosis and mother. Non-smoker At this point, do think she needs to use fracture reducing treatment, will not consider this a failure of oral bisphospho nates as difference in T score may be due to different technique/ machine. Do not feel like her story is bad enough at this point to warrant Forteo which would normally be considered for failure of bisphospho andres therapy . Very reasonable to convert to IV bisphospho andres however given fairly significan t esophageal achalasia and esophagiti s findings.R eviewed risk and benefits of Reclast.Wo uld advise yearly dosing and every 2-year bone density hopefully at same facility. Would advise VFA if available at [facility] to exclude any occult spinal compressio n fractures with next study. Alternativ e nonbisphos phonate therapy of Prolia and Forteo and E [place] all briefly reviewed Reviewed trying to limit bisphospho andres continuous use to 8 years or less and then consider for drug holiday. This would be no more than another 4 years of IV use if tolerating well. Might consider holiday sooner if significan t improvemen t in T-scores in the next 1-2 bone densities testing (02/13, 02/15)Main tain weightbear ing exercise and adequate calcium/vi tamin D intake, yearly surveillan ce of vitamin D serum levels and calcium levels. Baseline PTH screen today Chronic ki dney disease 473841908 N18.9 History of minimally decreased renal function over the last 9 months, lowest reading of GFR 54 still puts her in acceptable range for use of either oral or IV bisphospho andres. Advise monitoring at minimum yearly or sooner if advised per PCP. If falls below 30 GFR will need nonbisphos phonate therapy [id number] Kiley Morel PA-C [facility] [address] [place] [address] 09/15/2021 07:55:02 09/15/2021 09:37:18 Abdominal pain 13213971 R10.9 Pain in throat 917426412 R07.0 [id number] Dianna Padgett MD [facility] [address] [place] [address] 11/04/2021 09:02:32 11/04/2021 09:39:32 Long-term drug therapy 787831475 Z79.899 Anxiety 08089722 F41.9 Essential hypertension 84269361 I10 Gastroesop hageal reflux disease 179520856 K21.9 Hyperlipidemia 17095247 E78.2 [id number] Kiley Morel PA-C [facility] [address] [place] [address] 11/10/2021 07:51:00 11/10/2021 09:09:49 Adult health examination 857931881 Z00.01 Depression screening 171 635975 Z13.89 Examinatio n of blood pressure 475148870 Z01.30 Diet education 09763472 Z71.3 Counseling 954524572 Z71 .82 Exercise counseling . Patient encouraged to exercise 30 minutes 5 days a week. At [facility] for [facility] 398130005 Z91.81 [facility] FAST screening score of . Body mass index 25-29 - overweight 968327189 Z68.26 Overweight 534918881 E66 .3 Chronic ki dney disease 294238375 N18.9 Essential hypertension 77889558 I10 Hyperlipidemia 36555263 E78.2 stable Vitamin D deficiency 347 51670 E55.9 Gastroesop hageal reflux disease 598543492 K21.9 sees GI- [place] Chronic diarrhea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
--- OUTSIDE RECORDS SUMMARY | 2024-08-21 11:43 | XMS_ITS | Encounter Summary ---
Author Organization Healthcare Address [address] [place] [address] Care Team Providers Care Solutions Operator Name Role Phone María Elena Masters More SPECIAL DIET COOK Unavailable [phone] Kiley Morel Primary Care Provider [phone] Reason for Visit * Reason Comments Med Refill Encounter Details Date Type Department Care Team (Late st Contact Info) Description 05/11/2021 Refill [facility] [address], [address] [place] [address] Cristela Castillo PA [address] [place] [address] Achalasia; History of fundoplication Social History Tobacco Use Types Packs/Day Years Used Date Smoking Tobacco: Never Smokeless Tobacco: Never Alcohol Use Standard Drinks/Week Comments No 0 (1 standard drink = 0.6 oz pur e alcohol) PHQ-2 Answer Date Recorded Patient Health Questionnaire-2 Score 0 02/10/2021 Comments Unknown Sex and Gender Information Value Date Recorded Sex Assigned at Not on file Legal Sex Female 7:08 PM EDT Gender Identity Not on file Sexual Orientation Not on file COVID-19 Exposure Response Date Recorded In the last month, have you been in contact with someone who was confirmed or suspected to have Coronavirus / COVID-19? No / Unsure 04/21/2021 8:57 AM EST documented as of this encounter Miscellaneous Notes * Telephone Encounter - Jean Pierre Rodriguez, PharmD - 05/12/2021 9:04 AM EDT Per protocol, 1 medication(s), dicyclomine, has been approved for 30 day supply with 2 refill(s). The medication refill request(s) has been sent to [facility] pharmacy. documented in this encounter Plan of Treatment Upcoming Encounters Date Type Department Care Team (Late st Contact Info) Description 10/02/2024 8:40 AM EDT Office Visit [place] [facility] [address], [address] [place] [address] Cristela Castillo PA [address] [place] [address] 03/23/2025 10:30 AM EST Ovarian Cancer Screening [facility] [address] [place] [address] documented as of this encounter Visit Diagnoses Diagnosis Achalasia Achalasia and cardiospasm History of fundoplication documented in this encounter Additional Health Concerns Assessment Noted Time A fall risk assessment has been complete d for the patient 04/21/2021 9:14 AM EST documented as of this encounter Care Teams Solutions Operator Relationship Specialty Start Date End Date María Elena Masters APRN [address] [place] [address] PCP - zipper repairer 04/21/21 Kiley Morel PA [address] [place] [address] PCP - General 04/21/21 documented as of this encounter
--- OUTSIDE RECORDS SUMMARY | 2024-08-21 11:43 | XMS_ITS | Encounter Summary ---
Author Organization Healthcare Address [address] [place] [address] Care Team Providers Care Rotary Saw Operator Name Role Phone María Elena Masters More SENIOR PIPING DESIGNER Unavailable [phone] Kiley Morel Primary Care Provider [phone] Reason for Visit * Reason Comments Med Refill Encounter Details Date Type Department Care Team (Late st Contact Info) Description 08/04/2024 Refill [place] [facility] [address], [address] [place] [address] Cristela Castillo PA [address] [place] [address] Achalasia of cardia; Other esophagitis without bleeding Social History Tobacco Use Types Packs/Day Years [...] on file documented as of this encounter Miscellaneous Notes * Telephone Encounter - Jean Pierre Rodriguez, PharmD - 08/04/2024 8:28 AM EDT 1 medication(s) has been denied per protocol due to: Refill not appropriate - changed to esomeprazole in Feb and follow up appt verified that is current documented in this encounter Plan of Treatment Upcoming Encounters Date Type Department Care Team (Late st Contact Info) Description 10/02/2024 8:40 AM EDT Office Visit [place] [facility] [address], [address] [place] [address] Cristela Castillo PA [address] [place] [address] 03/23/2025 10:30 AM EST Ovarian Cancer Screening [facility] [address] [place] [address] documented as of this encounter Visit Diagnoses Diagnosis Achalasia of cardia Achalasia and cardiospasm Other esophagitis without bleeding documented in this encounter Additional Health Concerns Assessment Noted Time PHQ-9 Depression Total Score: 0 05/30/19 25 7:12 AM EDT A fall risk assessment has been complete d for the patient 07/12/2024 10:36 AM EDT A Body Mass Index follow-up plan has been documented for the patient 07/18/2024 10:24 PM EDT documented as of this encounter Care Teams Rotary Saw Operator Relationship Specialty Start Date End Date María Elena Masters, SENIOR PIPING DESIGNER [address] [place] [address] PCP - pulp beater 04/21/21 Kiley Morel PA [address] [place] [address] PCP - General 04/21/21 documented as of this encounter
--- OUTSIDE RECORDS SUMMARY | 2024-08-21 11:43 | XMS_ITS | Encounter Summary ---
Author Organization [facility] Address [address] [place] [address] Care Team Providers Care Salon Receptionist Name Role Phone Kiley Morel PA-C Primary Care Provider [phone] Reason for Referral * Radiology Services (Routine) - Pending Review Specialty Diagnoses / Procedures Referred By Contgarfield t Referred To Contact Diagnoses Visit for screening mammogram Procedures Mammo Screening (3D) Bilateral Anna Garcia NP [address] [place] [address] Phone: tel: fax: Referral ID Status Reason Start Date Expiration Date V isits Requested Visits Authorized [id number] Pending Review 07/07/2024 07/07/2025 1 1 Encounter Details Date Type Department Care Team (Latest Contact Info) Description 07/07/2024 Transcribe Orders Centralized Scheduling [address] [place] [address] Anna Garcia NP [address] [place], [place] [id number] Visit for screening mammogram (Primary Dx) Social History Tobacco Use Types [...] on file documented as of this encounter Results * Mammo Screening (3D) Bilateral (07/13/2024 9:16 AM EDT) Anatomical Region Laterality Modality breast Bilateral Mammography 07/13/2024 Narrative 07/14/2024 5:59 AM EDT [facility] [address] [place] [address] Radiology PATIENT NAME: Annabella Elias MR#: [id number] PROCEDURE DATE: 07/13/2024 ROOM#: ORDERING PHYS: Anna Garcia EXAM: MAMMO SCREENING (3D) BILATERAL HISTORY: Screening. [...] of malignancy. BI-RADS: 2: Benign RECOMMENDATION: Recommendation:The [employer] recommends annual screening mammography at age 40 for average risk women. Consult with your provider regarding the best screening regimen for you.Annual Screening mammography assuming a stable clinical breast examination. Per national MQSA guidelines, a breast imaging result letter will [...] Location of Performed Examination [facility] [address] [address] THIS IS AN ELECTRONICALLY VERIFIED REPORT 07/14/2024 5:59 AM: MD Terry Callahan MD ran TD: 07/14/2024 JOB #: [id number] Radiology Page 1 of 1 COPY Anna Garcia JET PILOT IMG MAMMOGRAPHY ORDERABLES Fi nal Result documented in this encounter Visit Diagnoses Diagnosis Visit for screening mammogram- Primary Visit for screening mammogram documented in this encounter Care Teams Salon Receptionist Relationship Specialty Start Date End Date Kiley Morel PA-C [address] [place] [address] PCP - General Physician Morning Show Host 02/03/20 documented as of this encounter
--- OUTSIDE RECORDS SUMMARY | 2024-08-21 11:43 | XMS_ITS | Encounter Summary ---
Author Organization Healthcare Address [address] [place] [address] Care Team Providers Care Chief Communications Officer Name Role Phone María Elena Masters HELP DESK MANAGER Unavailable [phone] Kiley Morel Primary Care Provider [phone] Encounter Details Date Type Department Care Team (Late st Contact Info) Description 01/05/2024 Lab Requisition [facility] [address] [place] [address] Demetrio Strickland MD [address] [place] [address] Achalasia of cardia; Personal history of colon polyps, unspecified Social History Tobacco Use Types Packs/Day Years Used Date Smoking Tobacco: Never Smokeless Tobacco: Never Alcohol Use Standard Drinks/Week Comments No 0 (1 standard drink = 0.6 oz pur e alcohol) PHQ-2 Answer Date Recorded Patient Health Questionnaire-2 Score 0 11/15/2023 PHQ-2A Answer Date Recorded Patient Health Questionnaire-2 [...] Description 10/02/2024 8:40 AM EDT Office Visit [place] [facility] [address] [place] [address] Cristela Castillo PA [address] [place] [address] 03/23/2025 10:30 AM EST Ovarian Cancer Screening [facility] Gynecology [address] [place] [address] documented as of this encounter Procedures Procedure Name Priority Date/Time Associated Diagnosis Comments SURGICAL PATHOLOGY EXAM Routine 01/05/2024 Achalasia of cardia Personal history of colon polyps, unspecified documented in this encounter Results * Surgical Pathology Exam (01/05/2024) Case Report Surgical Pathology Case: [id number] Authorizing Provider: Demetrio Strickland MD Collected: 01/05/2024 Ordering Location: [facility] Lab Received: 01/05/2024 1331 Pathologist: Radha Chauhan MD Specimens: A) - Stomach, GE junction bx B) - Cecum, Cecal polyp C) - Sigmoid Colon, Sigmoid polyp 01/06/2024 1:54 PM EST [facility] Final Diagnosis A. GASTROESOPHAGEAL JUNCTION, BIOPSY: - GE JUNCTION MUCOSA WITH CHRONIC INFLAMMATION. - CLINICOPATHOLOGIC FINDINGS CONSISTENT WITH REFLUX ESOPHAGITIS. B. LARGE INTESTINE, CECUM, POLYP, BIOPSY: - TUBULAR ADENOMA. C. LARGE INTESTINE, SIGMOID COLON, POLYP, BIOPSY: - NO SIGNIFICANT PATHOLOGIC ABNORMALITIES. - NO EVIDENCE OF ADENOMA OR HYPERPLASTIC POLYP. 01/06/2024 1:54 PM EST [facility] at 1354 EST Clinical Information K22.0 - Achalasia of cardia [ICD-10-CM] Z86.0100 - Personal history of colon polyps, unspecified [ICD-10-CM] Irregular Z-line LA grade A reflux esophagitis One 5 mm sessile polyp in the cecum One 3 mm sessile polyp in the sigmoid colon 01/06/2024 1:54 PM EST [facility] Gross Description A. GE JUNCTION BX Received in formalin labeled G E junction biopsy are 6 pieces of perez-brown soft tissue measuring 0.2-0.4 cm. Entirely submitted in cassette A1. Cold Time: 0 Bettina T Hernandez B. CECAL POLYP Received in formalin labeled c ecal polyp is 1 perez-brown soft tissue measuring 1.0 cm. Entirely submitted in cassette B1. Cold Time: 0 Bettina T Hernandez C. SIGMOID POLYP Received in formalin labeled s igmoid polyp is a perez-brown soft tissue measuring 0.5 cm. Entirely submitted in cassette C1. Cold Time: 0 Bettinacj Hernandez 01/06/2024 1:54 PM EST [facility] Note: A resident was involved in the service. I attest I examined the relevant preparations for the specimens and confirmed the diagnosis or interpretation. 01/06/2024 1:54 PM EST [facility] Tissue Sigmoid colon structure / Unknown 01/05/2024 01/05/2024 1:31 PM EST Tissue specimen (specimen) Cecum structure / Unknown 01/05/2024 01/05/2024 1:31 PM EST Tissue specimen (specimen) Sigmoid colon structure / Unknown 01/05/2024 01/05/2024 1:31 PM EST Demetrio Strickland MD LAB PATHOLOGY ORDERABLES Final Result [facility] [address] [place] [address] documented in this encounter Visit Diagnoses Diagnosis Achalasia of cardia Achalasia and cardiospasm Personal history of colon polyps, unspecified documented in this encounter Additional Health Concerns Assessment Noted Time A fall risk assessment has been complete d for the patient 11/15/2023 8:34 AM EDT A Body Mass Index follow-up plan has been documented for the patient 11/15/2023 9:11 AM EDT documented as of this encounter Care Teams Chief Communications Officer Relationship Specialty Start Date End Date María Elena Masters, HELP DESK MANAGER [address] [place] [address] PCP - court advocate 04/21/21 Kiley Morel PA [address] [place] [address] PCP - General 04/21/21 documented as of this encounter
--- OUTSIDE RECORDS SUMMARY | 2024-08-21 11:43 | XMS_ITS | Encounter Summary ---
Author Organization Healthcare Address [address] [place] [address] Care Team Providers Care Pallet Sorter Name Role Phone María Elena Masters More GIFT WRAPPER Unavailable [phone] Kiley Morel Primary Care Provider [phone] Reason for Visit * Reason Comments Med Refill Encounter Details Date Type Department Care Team (Late st Contact Info) Description 04/27/2022 Refill [place] [facility] [address], [address] [place] [address] Cristela Castillo PA [address] [place] [address] Alternating constipation and diarrhea Social History Tobacco Use Types Packs/Day Years Used Date Smoking Tobacco: Never Smokeless Tobacco: Never Alcohol Use Standard Drinks/Week Comments No 0 (1 standard drink = 0.6 oz pur e alcohol) PHQ-2 Answer Date Recorded Patient Health Questionnaire-2 Score 0 02/09/2022 Comments No Sex and Gender Information Value Date Recorded Sex Assigned at Not on file Legal Sex Female 7:08 PM EDT Gender Identity Not on file Sexual Orientation Not on file documented as of this encounter Miscellaneous Notes * Telephone Encounter - Zach Temple - 04/27/2022 8:25 AM EST Per protocol, 1 medication(s), docusate, has been approved for 90 day supply with 0 refill(s) to [facility]. documented in this encounter Plan of Treatment Upcoming Encounters Date Type Department Care Team (Late st Contact Info) Description 10/02/2024 8:40 AM EDT Office Visit [place] [facility] [address], [address] [place] [address] Cristela Castillo, PA [address] [place] [address] 03/23/2025 10:30 AM EST [facility]varian Cancer Screening [facility] [address] [place] [address] documented as of this encounter Visit Diagnoses Diagnosis Alternating constipation and diarrhea documented in this encounter Additional Health Concerns Assessment Noted Time A fall risk assessment has been complete d for the patient 02/09/2022 11:46 AM EST documented as of this encounter Care Teams Pallet Sorter Relationship Specialty Start Date End Date María Elena Masters, GIFT WRAPPER [address] [place] [address] PCP - wine steward 04/21/21 Kiley Morel PA [address] [address] PCP - General 04/21/21 documented as of this encounter
--- OUTSIDE RECORDS SUMMARY | 2024-08-21 11:43 | XMS_ITS | Encounter Summary ---
Author Organization Healthcare Address [address] [place] [address] Care Team Providers Care Director Of Special Education Name Role Phone María Elena Masters More MANAGER IN HOME Unavailable [phone] Kiley Morel Primary Care Provider [phone] Reason for Visit * Reason Comments Med Refill Encounter Details Date Type Department Care Team (Late st Contact Info) Description 12/01/2021 Refill [place] [facility] [address] [place] [address] Cristela Castillo PA [address] [place] [address] Chronic diarrhea Social History Tobacco Use Types Packs/Day Years Used Date Smoking Tobacco: Never Smokeless Tobacco: Never Alcohol Use Standard Drinks/Week Comments No 0 (1 standard drink = 0.6 oz pur e alcohol) PHQ-2 Answer Date Recorded Patient Health Questionnaire-2 Score 0 10/13/2021 Comments No Sex and Gender Information Value Date Recorded Sex Assigned at Not on file Legal Sex Female 7:08 PM EDT Gender Identity Not on file Sexual Orientation Not on file documented as of this encounter Miscellaneous Notes * Telephone Encounter - Zach Temple - 12/01/2021 3:17 PM EDT Per protocol, 1 medication(s), cholestyramine packets, has been approved for 30 day supply with 0 refill(s). The medication refill request(s) has been sent to [facility] pharmacy. documented in this encounter Plan of Treatment Upcoming Encounters Date Type Department Care Team (Late st Contact Info) Description 10/02/2024 8:40 AM EDT Office Visit [place] [facility] [address] [place] [address] Cristela Castillo PA [address] [place] [address] 03/23/2025 10:30 AM EST [facility] [address] [place] [address] documented as of this encounter Visit Diagnoses Diagnosis Chronic diarrhea Diarrhea documented in this encounter Additional Health Concerns Assessment Noted Time A fall risk assessment has been complete d for the patient 10/13/2021 8:36 AM EDT documented as of this encounter Care Teams Director Of Special Education Relationship Specialty Start Date End Date María Elena Masters, MANAGER IN HOME [address] [place] [address] PCP - tip banding machine operator 04/21/21 Kiley Morel PA [address] [place] [address] PCP - General 04/21/21 documented as of this encounter
--- OUTSIDE RECORDS SUMMARY | 2024-08-21 11:43 | XMS_ITS | Clinical Summary ---
Author Organization [facility] Address [address] [place] [address] Care Team Providers Care Computer Trainer Name Role Phone Kiley Morel PA-C Primary Care Provider [phone] Allergies Active Allergy Reactions Criticality Noted Date Comments Cefdinir Itching 01/07/2023 Codeine Nausea And Vomiting 01/07/2023 Dexamethasone Other (See Comments) 01/07/2023 Lisinopril Cough 01/07/2023 Methylprednisolone Other (See Comments) 01/07/2023 Paroxetine Hcl Other (See Comments) 01/07/2023 Penicillins Itching 01/07/2023 Sulfa (Sulfonamide Antibiotics) Itching 01/07/2023 Simvastatin Other (See Comments) 01/07/2023 Muscle cramps Sertraline Other (See Comments) 01/07/2023 Medications rimegepant (NURTEC ODT) 75 mg TbDL Take 1 Tablet by mouth As directed. Active dicyclomine (BENTYL) 10 mg capsule Take 10 mg by mouth Four times a day. Active amitriptyline (ELAVIL) 50 mg tablet Take 50 mg by mouth At bedtime. Active triamcinolone (KENALOG) 0.1 % cream by Topical route Twice a day. Active losartan-hydroc hlorothiazide (HYZAAR) 100-25 mg tablet Take 1 Tablet by mouth Once Daily. Active azelastine (ASTELIN) 137 mcg nasal spray 1-2 Sprays by INTRANASAL route Twice a day. Active latanoprost (XALATAN) 0.005 % Instill 1 Drop in both eyes At bedtime. Active alendronate (FOSAMAX) 70 mg tablet Take 70 mg by mouth Every Week. Active montelukast (SINGULAIR) 10 mg tablet Take 10 mg by mouth Every evening. Active cetirizine (ZYRTEC) 10 mg tablet Take 10 mg by mouth Once Daily. Active loratadine (CLARITIN) 10 mg tablet Take 10 mg by mouth Once Daily. Active ALPRAZolam (XANAX) 0.25 mg tablet Take 0.25 mg by mouth Three times a day. Active ascorbic acid, vitamin C, 500 mg tablet Take 500 mg by mouth Once Daily. Active cyanocobalamin 1,000 mcg tablet Take 1,000 mcg by mouth Once Daily. Active multivitamin with folic acid (THERA) tablet Take 1 Tablet by mouth Once Daily. Active cholecalciferol (VITAMIN D3) 400 unit Cap CAPSULE Take 400 Units by mouth Once Daily. Active ubrogepant (UBRELVY) 100 mg tablet Take 100 mg by mouth As directed. Active pravastatin (PRAVACHOL) 80 mg tablet Take 80 mg by mouth At bedtime. Active Active Problems Problem Noted Date Diagnosed Date Combined forms of age-related cataract of both e yes 01/05/2023 Encounters Date Type Department Care Team Description 07/13/2024 9:09 AM EDT - 07/13/2024 11:59 PM EDT Hospital Encounter [facility] [address] [place] [address] Anna Garcia NP Visit for screening mammogram Discharge Disposition: Home or Self Care 07/07/2024 Transcribe Orders Centralized Scheduling [address] [place] [address] Anna Garcia NP Visit for screening mammogram (Primary Dx) from Last 3 Months Family History Medical History Relation Name Comments Breast Cancer Neg Hx Social History Tobacco Use Types Packs/Day Years Used Date Smoking Tobacco: Never Smokeless Tobacco: Never Alcohol Use Standard Drinks/Week Comments Never 0 (1 standard drink = 0.6 oz pur e alcohol) Comments No Sex and Gender Information Value Date Recorded Sex Assigned at Not on file Legal Sex Female 2:38 PM EST Gender Identity Not on file Sexual Orientation Not on file Last Filed Vital Signs Vital Sign Reading Time Taken Comments Blood Pressure 131/64 01/26/2023 9:53 AM EST Pulse 78 01/26/2023 8:16 AM EST Temperature 36.3 C (97.4 F) 01/26/2023 9:53 AM EST Respiratory Rate 17 01/26/2023 9:53 AM EST Oxygen Saturation 99% 01/26/2023 9:53 AM EST Inhaled Oxygen Concentration - - Weight 65.8 kg (145 lb) 01/26/2023 8:16 AM EST Height 157.5 cm (5' 2 ) 01/26/2023 8:16 AM EST Body Mass Index 26.52 01/26/2023 8:16 AM EST Plan of Treatment Health Maintenance Due Date Last Done Comments COLOGUARD 1954 FIT 1954 HEP C SCREENING 1954 SIGMOIDOSCOPY 1954 DEXA SCAN EVERY 2 YR (Osteoporosis Screen) 07/16/2019 ANNUAL WELLNESS EXAM 12/21/2019 12/19/2018, 12/15/2017, 12/07/2016 COVID-19 Vaccine ( season) 2023 11/25/2021, 06/28/2020, 05/28/2020 DTAP/TDAP/TD VACCINE (3 - Td or Tdap) 09/12/2024 09/12/2014, 11/19/2011, 06/08/2001 ANNUAL MAMMOGRAM 07/14/2025 07/13/2024, , 06/04/2022, Additional history exists COLONOSCOPY 01/04/2034 01/05/2024, 09/08/2018 Colorectal Screening Combination 01/04/2034 HEP A VACCINE Aged Out 01/17/2018, 07/13/2017 No l onger eligible based on patient's age to complete this topic PNEUMOCOCCAL VACCINE 65+ YEARS Completed 11/10/2021, 12/15/2017, 12/07/2016, Additional history exists Shingles Vaccine (Shingrix) Completed 07/23, 06/01/2023, 09/12/2014 INFLUENZA VACCINE Completed 11/30/2023, , 12/29/2021, Additional history exists HIB VACCINE Aged Out No longer eligi ble based on patient's age to complete this topic ROTOVIRUS VACCINE Aged Out No longer eligible based on patient's age to complete this topic Medical Devices Implanted Type Area Improvement Engineer Device Identifier Shelf Expiration Date Model / Serial / Lot Clareon Iol Jose 16.0 [id number] Implanted:Qty: 1 on 01/12/2023 by Connie Watson MD at [facility] Left: Eye JOSE 05/30/2024 [id number].160 / [id number] / Lens Jose Clareon +16.0 D [id number] Implanted:Qty: 1 on 01/26/2023 by Connie Watson MD at [facility] Right: Eye 05/27/2024 [id number].160 / [id number] / Procedures Procedure Name Priority Date/Time Associated Diagnosis Comments MAMMO SCREENING (3D) BILATERAL Routine 07/13/2024 9:16 AM EDT Visit for screening mammogram from Last 3 Months Results * Mammo Screening (3D) Bilateral (07/13/2024 9:16 AM EDT) Anatomical Region Laterality Modality breast Bilateral Mammography 07/13/2024 Narrative 07/14/2024 5:[place] [address] Radiology PATIENT NAME: Annabella Elias MR#: [id number] PROCEDURE DATE: 07/13/2024 ROOM#: ORDERING PHYS: Anna [...] of malignancy. BI-RADS: 2: Benign RECOMMENDATION: Recommendation:The [employer] recommends annual screening mammography [...] Location of Performed Examination [facility] [address] [id number] THIS IS AN ELECTRONICALLY VERIFIED REPORT 07/14/2024 5:59 AM: MD Terry Callahan MD ran TD: 07/14/2024 JOB #: [id number] Radiology Page 1 of 1 COPY Anna Garcia NP IMG MAMMOGRAPHY ORDERABLES Fi nal Result from Last 3 Months Insurance [employer] [facility] MEDICARE ADVANTAGE Advance Directives * Full Code (Latest Code Status on File) Date Activated Date Inactivated Comments 01/26/2023 8:04 AM 01/26/2023 2:37 PM * Full Code Date Activated Date Inactivated Comments 01/12/2023 8:12 AM 01/12/2023 3:09 PM Care Teams Computer Trainer Relationship Specialty Start Date End Date Kiley Morel PA-C [address] [place] [address] PCP - General Physician Bag Loader 02/03/20
--- OUTSIDE RECORDS SUMMARY | 2024-08-21 11:43 | XMS_ITS | Encounter Summary ---
Author Organization [facility] Address [address] [place] [address] Care Team Providers Care Rn Flight Name Role Phone Kiley Morel PA-C Primary Care Provider [phone] Encounter Details Date Type Department Care Team (Late st Contact Info) Description 10/25/2020 Orders Only [facility] [address] [place] [phone] Melinda Nassar, RN Social History Tobacco Use Types Packs/Day Years Used Date Smoking Tobacco: Never Assessed Comments Unknown Sex and Gender Information Value Date Recorded Sex Assigned at Not on file Legal Sex Female 2:38 PM EST Gender Identity Not on file Sexual Orientation Not on file documented as of this encounter Plan of Treatment Not on file documented as of this encounter Visit Diagnoses Not on filedocumented in this encounter Care Teams Rn Flight Relationship Specialty Start Date End Date Kiley Morel PA-C [address] [place] [address] PCP - General Physician Lace Roller 02/03/20 documented as of this encounter
--- OUTSIDE RECORDS SUMMARY | 2024-08-21 11:43 | XMS_ITS | Encounter Summary ---
Author Organization Healthcare Address [address] [place] [address] Care Team Providers Care Enterprise Architect Name Role Phone María Elena Masters More MOTEL MANAGER Unavailable [phone] Kiley Morel Primary Care Provider [phone] Reason for Visit * Reason Comments Med Refill Encounter Details Date Type Department Care Team (Late st Contact Info) Description 09/15/2021 Refill [place] [facility] [address] [place] [address] Cristela Castillo PA [address] [place] [address] Achalasia; History of fundoplication Social History Tobacco Use Types Packs/Day Years Used Date Smoking Tobacco: Never Smokeless Tobacco: Never Alcohol Use Standard Drinks/Week Comments No 0 (1 standard drink = 0.6 oz pur e alcohol) PHQ-2 Answer Date Recorded Patient Health Questionnaire-2 Score 0 02/10/2021 Comments No Sex and Gender Information Value Date Recorded Sex Assigned at Not on file Legal Sex Female 7:08 PM EDT Gender Identity Not on file Sexual Orientation Not on file COVID-19 Exposure Response Date Recorded In the last 10 days, have yo u been in contact with someone who was confirmed or suspected to have Coronavirus/COVID-19? No / Unsure 08/29/2021 10:00 AM EDT documented as of this encounter Miscellaneous Notes * Telephone Encounter - Zach Temple - 09/15/2021 8:40 AM EDT Per protocol, 1 medication(s), dicyclomine, has been approved for 30 day supply with 1 refill(s). The medication refill request(s) has been sent to [facility] pharmacy. documented in this encounter Plan of Treatment Upcoming Encounters Date Type Department Care Team (Late st Contact Info) Description 10/02/2024 8:40 AM EDT Office Visit [place] [facility] [address] [place] [address] Cristela Castillo PA [address] [place] [address] 03/23/2025 10:30 AM EST [facility]varian Cancer Scre[facility] [address] [place] [address] documented as of this encounter Visit Diagnoses Diagnosis Achalasia Achalasia and cardiospasm History of fundoplication documented in this encounter Additional Health Concerns Assessment Noted Time A fall risk assessment has been complete d for the patient 04/21/2021 9:14 AM EST documented as of this encounter Care Teams Enterprise Architect Relationship Specialty Start Date End Date María Elena Masters, MOTEL MANAGER [address] [place] [address] PCP - sheet rock nailer 04/21/21 Kiley Morel PA [address] [place] [address] PCP - General 04/21/21 documented as of this encounter
--- OUTSIDE RECORDS SUMMARY | 2024-08-21 11:43 | XMS_ITS | Encounter Summary ---
Author Organization [facility] Address [address] [place] [address] Care Team Providers Care Automobile Mechanic Supervisor Name Role Phone María Elena Masters More DRYWALL FINISHER Unavailable [phone] Kiley Morel Primary Care Provider [phone] Reason for Visit * Reason Comments Med Refill Encounter Details Date Type Department Care Team (Late st Contact Info) Description 11/14/2021 Refill [facility] [address] [place] [address] Cristela Castillo PA [address] [place] [address] Achalasia; History of fundoplication Social [...] * Telephone Encounter - Zach Temple - 11/14/2021 11:05 AM EDT Per protocol, 1 medication(s), dicyclomine, has been approved for 20 day supply with 1 refill(s). The medication refill request(s) has been sent to [facility] pharmacy. documented in this encounter Plan of Treatment Upcoming Encounters Date Type Department Care Team (Late st Contact Info) Description 10/02/2024 8:40 AM EDT Office Visit [facility] [address] [place] [id number] Cristela Castillo PA [address] [place] [phone] 03/23/2025 10:30 AM EST [facility] Cancer Screening [facility] [address] [place] [phone] documented as of this encounter Visit Diagnoses Diagnosis Achalasia Achalasia and cardiospasm History of fundoplication documented in this encounter Additional Health Concerns Assessment Noted Time A fall risk assessment has been complete d for the patient 10/13/2021 8:36 AM EDT documented as of this encounter Care Teams Automobile Mechanic Supervisor Relationship Specialty Start Date End Date María Elena Masters, DRYWALL FINISHER [address] [place] [address] PCP - silviculturist 04/21/21 Kiley Morel PA [address] [place] [address] PCP - General 04/21/21 documented as of this encounter
--- OUTSIDE RECORDS SUMMARY | 2024-08-21 11:44 | XMS_ITS | Clinical Summary ---
Author Organization [facility] Address [address] [place] [address] Care Team Providers Care Cuff Setter Overlock Name Role Phone María Elena Masters CURB SUPERVISOR Unavailable [phone] Kiley Morel Primary Care Provider [phone] Allergies Active Allergy Reactions Criticality Noted Date Comments Cefdinir Itching Medium 01/07/2023 Codeine Nausea And Vomiting 01/07/2023 Dexamethasone Other - please docum ent in the comment field Low 01/07/2023 Escitalopram Anaphylaxis,Unknown - Patient states they do not know rxn details High 01/05/2012 Lisinopril Cough Low 01/07/2023 Methylprednisolone Other - please docum ent in the comment field Low 01/07/2023 Paroxetine Anaphylaxis,Unknown - Patient states they do not know rxn details High 11/21/2014 Paroxetine Hcl Other - please docum ent in the comment field Low 10/18/2008 Penicillins Rash,Swelling,Unknow n - Patient states they do not know rxn details High 01/05/2012 Sertraline Other - please docum ent in the comment field,Anaphylaxis High 11/13/2007 Simvastatin Other - please docum ent in the comment field Low 01/07/2023 Muscle cramps Sulfa Drugs Nausea,Other - pleas e document in the comment field,Unknown - Patient states they do not know rxn details,Swelling High 10/18/2008 Medications acetaminophen (Tylenol) 325 MG capsule 0 Active ALPRAZolam (Xanax) 0.5 MG tablet 1 Active azelastine (Astelin) 0.1 % nasal spray 1 Active calcium carbonate-vitamin D 600-200 MG-UNIT tablet 5 Active clotrimazole (Lotrimin) 1 % cream 0 Active hydroCHLOROthiazi de (HYDRODiuril) 25 MG tablet Take 1 tablet by mouth 1 (one) time each day. Active ipratropium (Atrovent) 0.03 % nasal spray 1 Active latanoprost (Xalatan) 0.005 % ophthalmic solution 1 Active loratadine (Claritin) 10 MG tablet 1 Active losartan (Cozaar) 100 MG tablet Take 1 tablet (100 mg) by mouth 1 (one) time each day. Active mometasone (Nasonex) 50 MCG/ACT nasal spray 0 Active Multiple Vitamin (Daily Vites) tablet Take 1 tablet by mouth 1 (one) time each day. Active olopatadine (Pataday) 0.2 % ophthalmic solution Administer 1 drop into affected eye(s) 1 (one) time each day. Active rosuvastatin (Crestor) 10 MG tablet 0 Active timolol (Timoptic) 0.5 % ophthalmic solution 1 Active travoprost (Travatan Z) 0.004 % solution ophthalmic solution 0 Active pravastatin (Pravachol) 80 MG tablet 2 Active ipratropium (Atrovent) 0.06 % nasal spray 2 Active losartan-hydroCHL OROthiazide (Hyzaar) 100-25 MG tablet Take 1 tablet by mouth every morning. 2 Active zoledronic acid (Reclast) 5 MG/100ML solution Infuse 100 mL into a venous catheter 1 (one) time. annually Active amitriptyline (Elavil) 50 MG tablet Take 1 tablet by mouth nightly. 3 Active aspirin-acetamino phen-caffeine (Excedrin Migraine) 250-250-65 MG tablet Active carbamide peroxide (Debrox) 6.5 % otic solution Active cholecalciferol (Vitamin D-3) 50 MCG (2000 UT) tablet Active ketotifen (Zaditor) 0.025 % ophthalmic solution 2 Active triamcinolone (Kenalog) 0.1 % cream Active ubrogepant (Ubrelvy) 100 MG tablet Active Wheat Dextrin (Benefiber) powderIndications :Alternating constipation and diarrhea Mix in 8 oz liquid, start with 1 tsp daily, increase by 1 tsp q 3 days until taking 3 tsp BID 529 g 11 3 Active montelukast (Singulair) 10 MG tablet Take 1 tablet by mouth every evening. 3 Active Nurtec 75 MG tablet dispersible 3 Active Allergy Relief Cetirizine 10 MG tablet 4 Active diclofenac (Voltaren) 1 % topical gel 3 Active Myrbetriq 25 MG tablet 4 Active Vitamin A 3 MG (42775 UT) capsule Take by mouth. Activ e Phytonadione (MEPHYTON PO) Active TOO-DKb-BzPc-NaSu lf-Na Asc-C (MoviPrep) 100 g reconstituted solutionIndicatio ns:Serrated adenoma of colon Take has directed for colonoscopy 1 each 4 Active Additional Information Patient not taking.Reported on 07/12/2024 docusate sodium (Colace) 100 MG capsuleIndication s:Alternating constipation and diarrhea Take 1 capsule (100 mg) by mouth 2 (two) times a day if needed for constipation. 180 capsule 4 Active Susan 500 MG capsuleIndication s:Nausea and vomiting, unspecified vomiting type Take 500 mg by mouth every 8 (eight) hours if needed (nausea). 60 capsule 5 4 Active rifAXIMin (Xifaxan) 550 MG tablet TAKE ONE TABLET BY MOUTH THREE TIMES DAILY FOR FOURTEEN DAYS Active esomeprazole (NexIUM) [address] capsuleIndication s:Taos grade B esophagitis Take 1 capsule (40 mg) by mouth 2 (two) times a day. Do not open capsule. 60 capsule 11 5 026 Active pantoprazole (Protonix) 40 MG EC tablet TAKE ONE TABLET BY MOUTH TWICE DAILY BEFORE MEALS -DO NOT CRUSH, CHEW OR SPIT 5 Active brimonidine-timol ol (Combigan) 0.2-0.5 % ophthalmic solution Administer 1 drop into both eyes 2 (two) times a day. 5 Active polyethylene glycol (MiraLax) 17 GM/SCOOP powderIndications :Drug induced constipation Take 17 g by mouth daily as needed (constipation). Take 1 dose daily, hold on days have loose stool. 510 g 11 5 Active dicyclomine (Bentyl) 10 MG capsuleIndication s:Chronic diarrhea Take 1 capsule by mouth in the morning and 1 capsule at noon and 1 capsule in the evening. Take before meals. 270 capsule 3 5 Active ondansetron (Zofran) 4 MG tabletIndications :Nausea and vomiting, unspecified vomiting type Take 1 tablet by mouth every 8 hours as needed for nausea or vomiting. 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 of both eyes 11/23/2022 High myopia, bilateral 11/23/2022 Intermediate stage nonexudat ana cristina age-related macular degeneration of both eyes 11/23/2022 Combined forms of age-related cataract of both e yes 11/23/2022 Tubular adenoma of colon 04/21/2021 History of fundoplication 04/21/2021 Chronic diarrhea 11/11/2020 Gastroesophageal reflux dise ase with esophagitis without hemorrhage 11/11/2020 Achalasia 11/11/2020 Overview (11/11/2020): hx of myotomy and checo Encounters Date Type Department Care Team Description 08/04/2024 Refill [facility] [address] [place] [address] Cristela Castillo PA Achalasia of cardia; Other esophagitis without bleeding 07/12/2024 11:20 AM EDT Office Visit [facility] [address] [place] [address] Erasmo Vasquez MD Hiatal hernia with GERD (Primary Dx) 07/12/2024 Travel 06/13/2024 7:59 AM EDT - 06/13/2024 11:59 PM EDT Hospital Encounter [facility] [address] [place] [address] Erasmo Vasquez MD Gastroesophageal reflux disease with esophagitis without hemorrhage Discharge Disposition: Home or Self Care 06/13/2024 Travel 06/05/2024 8:33 AM EDT - 06/05/2024 11:59 PM EDT Hospital Encounter [facility] [address] [place] [address] Gastroesophageal reflux disease with esophagitis without hemorrhage; Hiatal hernia Discharge Disposition: Home or Self Care 06/05/2024 Travel 06/05/2024 Refill [facility] [address] [place] [address] Cristela Castillo PA Chronic diarrhea 05/29/2024 7:20 AM EDT Office Visit [facility] [address] [place] [address] Cristela Castillo PA Drug induced constipation (Primary Dx); Chronic diarrhea; Nausea and vomiting, unspecified vomiting type; Taos grade B esophagitis; Paraesophageal hiatal hernia; Achalasia 05/29/2024 Travel from Last 3 Months Immunizations Immunization Administration Dates Next Due Hep A, Adult 01/17/2018,07/13/2017 Influenza, High-dose, Split Virus, Trivalent, Injectable, preservative free 11/30/2023 Influenza, Unspecified 11/12/2014,2013,11/21/2012,11/18,11/17/2010,11/14/2009,11/12/2008 Influenza, high-dose, quadrivalent 12/01,12/29/2021,12/24/2020,11/26 Influenza, injectable, quadrivalent 10/2018,12/15/2017,12/07/2016,11/24,11/12/2014,12/04/2013 Influenza, seasonal, injectable 11/17/2010,11/14,11/12/2008 Influenza, seasonal, injecta ble, preservative free 11/21/2012,11/19/2011 Moderna COVID-19 Vaccine (Re d Cap) 12+ years 06/28/2020,05/28/2020 Pneumococcal 20-bibi Conj Vaccine 11/10/2021 Pneumococcal Conjugate PCV 13 12/07/2016, 016 Pneumococcal Polysaccharide PPV23 12/15/2017, TD (adult), 2 Lf tetanus tox oid, preservative free, adsorbed 06/08/2001 Tdap 09/12/2014,11/19/2011 Zoster, Recombinant 08/03/2023,06/01/2023 Zoster, live 09/12/2014 Family History Medical History Relation Name Comments Diabetes Mother Relation Name Status Comments Mother Social History Tobacco Use Types Packs/Day Years Used Date Smoking Tobacco: Never Smokeless Tobacco: Never Tobacco Cessation:Counseling Given: Not Answered Alcohol Use Standard Drinks/Week Comments No 0 [...] Mass Index 25.1 07/12/2024 10:36 AM EDT Plan of Treatment Upcoming Encounters Date Type Department Care Team (Late st Contact Info) Description 10/02/2024 8:40 AM EDT Office Visit [facility] [address] [place] [address] Cristela Castillo PA [address] [place] [address] 03/23/2025 10:30 AM EST Ovarian Cancer Screening [facility] [address] [place] [address] Health Maintenance Due Date Last Done Comments [facility]-Hepatitis C Screening 1955 [facility]-Medicare Annual Wellness (AWV) 1955 [facility]-/Child/Adol SDOH Screenings 1955 [facility]- SDOH Screenings 1972 [facility]-Adult SDOH Screenings 1972 CT Colonography 07/16/1999 FIT-DNA 07/16/1999 FIT 07/16/1999 FOBT 07/16/1999 Sigmoidoscopy 07/16/1999 [facility]-RSV Vaccine: 60+ Years or (1 - Risk 60-74 years 1-dose series) 2014 [facility]-Bone Density Scan 01/09/2021 01/09/2019, 017 [id number] Vaccine ( season) 2023 11/25/2021, 06/28/2020, 05/28/2020 [facility]-DTaP,Tdap,and Td Vaccines (3 - Td or Tdap) 09/12/2024 09/12/2014, 11/19/2011, 06/08/2001 [facility]-Depression Screening 05/29/2025 025, 05/29/2024, 04/21/2021 [facility]-Breast Cancer Screening 06/16/202505/24, 06/17/2023, 06/04/2022, Additional history exists Colonoscopy 01/04/2034 01/05/2024, 12/23, 08/16/2023, Additional history exists [facility]-Colorectal Cancer Screening 01/04/2034 [facility]-Hepatitis A Vaccines Aged Out 01/17/2018, 06/23 No longer eligible based on patient's age to complete this topic [facility]-Pneumococcal Vaccine: 50+ Years Completed 11/10/2021, 12/15/2017, 12/07/2016, Additional history exists [facility]-Zoster Vaccines Completed 08/03/2023, 06/01/2023, 09/12/2014 [facility]-Influenza Vaccine Completed 11/30/2023 , 12/01/2022, 12/29/2021, Additional history exists [facility]-Obesity Intervention Completed 025, 05/29/2024, 05/01/2024, Additional history exists HPV Vaccines Aged Out No longer eligi ble based on patient's age to complete this topic [facility]-HIB Vaccines Aged Out No longer e ligible based on patient's age to complete this topic [facility]-IPV Vaccines Aged Out No longer e ligible based on patient's age to complete this topic [facility]-Rotavirus Vaccines Aged Out No lo nger eligible based on patient's age to complete this topic Medical Devices Implanted Type Area Dissolver Operator Device Identifier Shelf Expiration Date Model / Serial / Lot Duraclip 11mm - [id number] Implanted:Qty: 1 on 04/04/2021 by Charlie Bravo MD at [facility] Esophagus [id number] 05/28/2023 [id number] / / [id number] Procedures Procedure Name Priority Date/Time Associated Diagnosis Comments FL UPPER GI Routine 06/05/2024 9:42 AM EDT Gastroesophageal reflux disease with esophagitis without hemorrhage Hiatal hernia COLONOSCOPY 01/05/2024 9:17 AM EST from Last 3 Months or Most Recently Relevant to Health Maintenance Results * FL Upper GI (06/05/2024 9:42 AM EDT) Anatomical Region Laterality Modality Esophagus, stomach and duodenum Digital Radiography Impressions 06/05/2024 10:58 AM EDT 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 CRITICAL RESULT: No. COMMUNICATION: Per this written report. Preliminary report signed by jM Fang MD on 06/05/2024 10:30 AM By electronically signing this report, I, the attending physician, attest that I have personally reviewed the images/data for the above examination(s) and agree with the final edited report. Drafted by Mj Fang MD on 06/05/2024 10:07 AM Final report signed by Charlie Maldonado MD on 06/05/2024 10:58 AM Narrative 06/05/2024 10:58 AM EDT CLINICAL INDICATION: hiatal hernia, achalasia status post myotomy in 2016 TECHNIQUE: Single contrast barium fluoroscopic evaluation of the upper GI tract was performed. Fluoroscopy Time: 2.4 minutes. COMPARISON: Barium swallow 12/17/2020 FINDINGS: Esophagus: Esophageal dysmotility with secondary contractions within the mid to distal esophagus. Paraesophageal hernia with the gastroesophageal junction above the level of the diaphragm, best visualized on cine A: 8. No suspicious mucosal irregularities or suspicious filling defects. Gastroesophageal reflux is elicited with and without Valsalva maneuver. Stomach: Normal fold thickness and motility into the small bowel. No obvious mucosal lesion. Duodenum: Normal C sweep crosses midline without obvious mucosal irregularity. Procedure Note Charlie Maldonado MD - 06/05/2024 CLINICAL INDICATION: hiatal hernia, achalasia status post myotomy in 2016 TECHNIQUE: Single contrast barium fluoroscopic evaluation of the upper GI tract wasperformed. Fluoroscopy Time: 2.4 minutes. COMPARISON: Barium swallow 12/17/2020 FINDINGS: Esophagus: Esophageal dysmotility with secondary contractions within themid to distal esophagus. Paraesophageal hernia with the gastroesophagealjunction above the level of the diaphragm, best visualized on cine A: 8.No suspicious mucosal irregularities or suspicious filling defects.Gastroesophageal reflux is elicited with and without Valsalva maneuver. Stomach: Normal fold thickness and motility into the small bowel. Noobvious mucosal lesion. Duodenum: Normal C sweep crosses midline without obvious mucosalirregularity. 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 CRITICAL RESULT: No. COMMUNICATION: Per this written report. Preliminary report signed by Mj Fang MD on 06/05/2024 10:30 AM By electronically signing this report, I, the attending physician, attestthat I have personally reviewed the images/data for the aboveexamination(s) and agree with the final edited report. Drafted by Mj Fang MD on 06/05/2024 10:07 AM Final report signed by Charlie Maldonado MD on 06/05/2024 10:58 AM us Rhea L Lear CURB SUPERVISOR IMG FLUOROSCOPY PROCEDURES Fi nal Result * Colonoscopy (01/05/2024 9:17 AM EST) Anatomical Region Laterality Modality Endoscopy 01/05/2024 8:47 AM EST Impressions 01/05/2024 9:17 AM EST Please see media tab for the result. Information added by interface. Narrative Procedure Note Demetrio Strickland MD - 01/05/2024 IMPRESSION: Please see media tab for the result. Information added by interface. us External Provider GI PROCEDURE ORDERABLES Final Result from Last 3 Months or Most Recently Relevant to Health Maintenance Insurance [employer] [facility] [address] Care Teams Cuff Setter Overlock Relationship Specialty Start Date End Date María Elena Masters APRN [address] [place] [address] PCP - embroidery specialist 04/21/21 Kiley Morel PA [address] [place] [address] PCP - General 04/21/21
--- OUTSIDE RECORDS SUMMARY | 2024-08-21 11:44 | XMS_ITS | Clinical Summary ---
Author Organization [facility] Address [address] [place] [address] Care Team Providers Care Host/Hostess Restaurant Name Role Phone Kiley Morel Primary Care Provider [phone] Active Problems Problem Noted Date Diagnosed Date Microscopic hematuria 12/27/2012 Social History Tobacco Use Types Packs/Day Years Used Date Smoking Tobacco: Never Assessed Comments Unknown Sex and Gender Information Value Date Recorded Sex Assigned at Not on file Legal Sex Female 10:58 PM EST Gender Identity Female 04/22/2021 10:58 PM EST Sexual Orientation Don't know 04/22/2021 10 :58 PM EST Plan of Treatment Not on file Care Teams Host/Hostess Restaurant Relationship Specialty Start Date End Date Kiley Morel PA [address] [place] [address] PCP - General 12/16/10
[2024-08-21 13:10] LABS: Chloride 97 mmol/L (98-107)
[2024-08-21 13:11] LABS: Potassium 4.3 mmoL/L (3.5-5.1); Sodium 139 mmol/L (136-145)
[2024-08-21 13:14] LABS: Blood Urea Nitrogen 26 mg/dl (7-17); Calcium 9.8 mg/dl (8.4-10.2); Carbon Dioxide 32 mmol/L (22.0-30.0); Estimated Glomerular Filt Rate 44 ml/min (>60); GFR (African American) 54 ML/MIN (>60); Glucose 95 mg/dl (74-100)
[2024-08-21 13:16] LABS: Anion Gap 14.3 mEq/L (5-15)
== END 2024-08-21 23:59 | disposition home or self-care (01) ==
LOC: LAB 11:40
PROVIDERS: PCP Physician Assistant Medical; Visit Provider Nurse Practitioner Family
DX: I25.10 Atherosclerotic heart disease of native coronary artery without angina pectoris (principal)
CPT/HCPCS: 36415; 80048